=== PATIENT | female | born 1945 | race Two or more races ===

== ENCOUNTER 2025-07-08 11:41 | Inpatient (IN) | payer MEDICARE, MEDICAID ==
[~2025-07-08] VITALS: Ht 160 cm; Wt 68.5 kg
--- NOTE | 2025-07-08 12:45 | ED.PDOC ---
History of Present Illness HPI Comments Ms. Estrada is an 80 year old female with prior medical history of dementia, Parkinson's disease, hypertension, and hypothyroidism, who presented today accompanied by her son José Luis with chief complaint of generalized weakness. The patient has underlying dementia and is a poor historian, the majority of history is taken from her son José Luis who is her primary genetics teacher. He states that for the last 2 days the patient, who is ambulates with assistance and a walker, has been extremely weak, unable to stand on her own, has had decreased appetite and is sleeping more. He states she has been complaining of pain when she urinates associated with strong smelling urine in her diapers and two emetic episodes. She refers shortness of breath, but denies chest pain, fever, headache, nausea, hematuria, sore throat, and generalized body aches. Additionally refers that yesterday she fell while trying to get out of bed, he is unsure how she fell, if she hit her head, or how long she was on the floor for. Due to persistence of weakness, she is brought for evaluation in the ED. On evaluation in the ED, the patient seems well, afebrile, vitals are stable, without overt signs of distress. Home medications: Austredo 12 mg PO BID, Valsartan 80 mg PO daily, Aspiring 81 mg PO daily, Levothyroxine 75 mcg PO daily, Primidone 50 mg PO BID, Donepezil 10 mg PO daily, Trazodone 50 mg PO daily (states this was prescribed last week but he stopped it 3 days ago because it made her too lethargic) Chief Complaint: General Weakness Time Seen by MD: 12:25 Allergies: Coded Allergies: NO KNOWN ALLERGIES (Unverified , 07/08/25) Home Meds Reported Medications Primidone (Primidone) 125 Mg Tab, 100 MG PO DAILY, TAB 07/09/25 Donepezil Hydrochloride (DONEPEZIL HCL) 10 Mg Tab, 1 TAB PO DAILY, #90 TAB 1 Refill 07/09/25 Aspirin (Aspir-81) 81 Mg Tab, 1 TAB PO DAILY, #30 TAB 5 Refills 07/09/25 Levothyroxine Sodium (SYNTHROID TABLET) 100 Mcg Tb, 75 TAB PO DAILY, #90 TAB 3 Refills 07/09/25 Deutetrabenazine (Austedo) 12 Mg Tab, 12 MG PO DAILY, TAB 07/09/25 Valsartan-Hydrochlorothiazide (Diovan Hct) 80 /12.5 Tab, 1 TAB PO DAILY, #30 TAB 5 Refills 07/09/25 Information Source: Relative (Child) Mode of Arrival: Wheelchair Severity: Mild Timing: Days Past Medical History PAST MEDICAL HISTORY: Dementia, HTN, Thyroid Past Medical History (Other): Parkinsons disease Surgical History: Hernia Repair, Thyroidectomy [employer] History: Denies all [employer] Hx Family History Family History: Family hx of DM, Family hx of Cancer Social History Smoker: Non-Smoker Alcohol: Denies ETOH Use Drugs: Denies Drug Use Lives In: Home Constitutional: reports: weakness; denies: chills, diaphoresis, fatigue, fever, malaise, sweats EENTM: reports: others (Bilateral watery eye discharge); denies: blurred vision, double vision, eye pain, eye redness, nasal discharge, nose congestion, throat pain Respiratory: reports: shortness of breath; denies: cough, hemoptysis, orthopnea, SOB at rest, SOB with excertion Cardiovascular: denies: chest pain, dizzy spells, diaphoresis, Dyspnea on exertion, edema, palpitations Gastrointestinal: reports: poor appetite, vomiting; denies: abdomen distended, abdominal pain, blood streaked bowels, constipated, diarrhea, dysphagia, hematemesis, melena, nausea, poor fluid intake, rectal bleeding Genitourinary: reports: burning, dysuria; denies: flank pain, frequency, hematuria, incontinence, pain, urgency Neurological: reports: weakness; denies: dizziness, fainting, headache, numbness, paresthesia, pre-existing deficit, seizure, speech problems, tingling, tremors Musculoskeletal: denies: back pain, joint pain, joint swelling, muscle pain, muscle stiffness, neck pain Integumetry: denies: bruises, laceration, lesions, lumps, rash Physical Exam General Appearance: Normal HEENT: Normal ENT Inspection, Other (Normocephalic, atraumatic, normal reactive pupils, EOM intact, pink conjunctiva, pink moist mucous membrane) Neck: Full Range of Motion, Non-Tender, Normal Inspection Respiratory: Chest Non-Tender, Lungs Clear, No Accessory Muscle Use, No Respiratory Distress, Normal Breath Sounds Cardiovascular: No Edema, Normal Peripheral Pulses, Regular Rate/Rhythm Breast Exam: Deferred Gastrointestinal: Non Tender, Normal Bowel Sounds, Soft Genitalia: Deferred Pelvic: Deferred Rectal: Deferred Extremities: Decreased range of motion (Decreased range of motion of left shoulder secondary to a previous rotator cuff injury ), Normal capillary refill, Normal inspection, Non-tender, No pedal edema Neurologic: Motor Weakness (Strength in bilateral lower extremities 4/5 ), Normal Affect, Normal Mood, Other (AOx2, follows commands) Cerebellar Function: NOT DONE Reflexes: NOT DONE Skin: Normal Color Peripheral Pulses: 3+ dorsalis pedis (R), 3+ dorsalis pedis (L) Lymphatic: Other (No cervical adenopathy ) Was a procedure done? Was a procedure done?: No Differential Dx Considerations may include: Failure to thrive, cystitis, pyelonephritis, acute gastroenteritis, gastritis, AR, ACS X-Ray, Labs, Meds, VS Vital Signs Date Time Temp Pulse Resp B/P (MAP) Pulse Ox O2 Delivery O2 Flow Rate FiO2 07/08/25 21:16 98.3 63 14 159/57 (91) 97 98.3 07/08/25 19:30 63 14 97 Room Air* 0 21 07/08/25 18:50 70 14 165/60 (95) 97 07/08/25 16:00 62 14 149/45 (79) 98 07/08/25 15:57 57 07/08/25 15:00 85 18 95 Room Air* 0 21 07/08/25 14:14 67 13 159/45 (83) 97 07/08/25 13:00 59 14 129/48 (75) 99 07/08/25 11:45 98.3 65 12 130/55 97 98.3 Lab Test 07/08/25 16:08 07/08/25 14:10 07/08/25 14:06 07/08/25 13:12 Range/Units Troponin I High Sensitivity 72 *H 70 *H 76 *H </=34 ng/L Urine Color Yellow Yellow Urine Clarity Clear Clear Urine pH 5.0 5.0-9.0 Urine Specific [place] 1.021 1.001-1.035 Urine Protein 1+ H Negative Urine Ketones Negative Negative Urine Blood Negative Negative /uL Urine Nitrite Negative Negative Urine Bilirubin Negative Negative Urine Urobilinogen Normal Negative mg/dL Urine Leukocyte Esterase Negative Negative /uL Urine RBC 1 0 - 4 /hpf Urine Microscopic WBC < 1 0-5 /HPF Urine Squamous Epithelial Cells None seen <5 /hpf Urine Bacteria None seen None Seen /hpf Urine Glucose Normal Normal mg/dL White Blood Count 8.5 4.4-10.8 10^3/uL Red Blood Count 3.96 L 4.0-5.20 10^6/uL Hemoglobin 11.4 L 12.2-16.2 g/dL Hematocrit 34.3 L 36.0-46.0 % Mean Corpuscular Volume 86.7 80.0-100.0 fL Mean Corpuscular Hemoglobin 28.8 28.0-32.0 pg Mean Corpuscular Hemoglobin Concent 33.2 32.0-36.0 g/dL Red Cell Distribution Width 13.9 11.8-14.3 % Platelet Count 205 140-450 10^3/uL Mean Platelet Volume 9.9 6.9-10.8 fL Neutrophils (%) (Auto) 67.8 37.0-80.0 % Lymphocytes (%) (Auto) 24.3 10.0-50.0 % Monocytes (%) (Auto) 5.0 0.0-12.0 % Eosinophils (%) (Auto) 2.4 0.0-7.0 % Basophils (%) (Auto) 0.5 0.0-2.0 % Neutrophils # (Auto) 5.7 1.6-8.6 10 ^3/uL Lymphocytes # (Auto) 2.1 0.4-5.4 10 ^3/uL Monocytes # (Auto) 0.4 0-1.3 10 ^3/uL Eosinophils # (Auto) 0.2 0-0.8 10 ^3/uL Basophils # (Auto) 0 0-0.2 10 ^3/uL Nucleated Red Blood Cells 0.0 % Sodium Level 142 136-145 mmol/L Potassium Level 4.4 3.5-5.1 mmol/L Chloride Level 106 98-107 mmol/L Carbon Dioxide Level 25 20-31 mmol/L Anion Gap 11 5-15 Blood Urea Nitrogen 24 H 9-23 mg/dL Creatinine 1.09 H 0.550-1.02 mg/dL Glomerular Filtration Rate Calc 51 >90 mL/min BUN/Creatinine Ratio 22.0 H 10.0-20.0 Serum Glucose 85 74-106 mg/dL Calcium Level 8.7 8.7-10.4 mg/dL Dr. Cornelius: Patient personally seen and evaluated by myself. At this time agree finding and assessment by Dr. Pablo. Patient's assessment and plan has been created by myself along with Dr. Pablo Time of 1ST Reevaluation: 14:00 Reevaluation 1ST: Unchanged Patient Education/Counseling: Diagnosis, Treatment Family Education/Counseling: Diagnosis, Treatment Comments The patient was brought today by her son due to chief complaint of generalized weakness On initial evaluation of the patient, she seemed well, vitals are stable, without overt signs of distress. She required assistance for transfer from wheelchair to bed. Physical exam is positive mild weakness in lower extremities. CBC significant mild normocytic anemia, BMP for mildly elevated creatinine. UA without significant findings. Initial troponins: 76 -> 70 Chest xray is without significant findings CT head shows no acute intracranial abnormalities EKG shows bradycardia with occasional PCVs and trigeminy. Due to persistent weakness rendering her unable to walk, the patient will be admitted for further work up and monitoring. SEPSIS Sepsis Screen Date sepsis recognized/suspect: Jul 08, 2025 Time Sepsis recognized/suspect: 1145 Recent Procedure: No On Antibiotic Therapy: No Respiratory Rate >20: No Heart Rate >90: No Temp<36 C (96.8 F) or >38.3 C: No SBP <90 or MAP <65 mmHG: No New Acute Mental Status Change: No Is the patient on CPAP, BIPAP,: No Physician Orders Head Without Contrast (07/08/25 12:45) Chest Xray 1 View (07/08/25 12:45) Cardiac Diet-2gna,Lofat,Lochol (07/08/25 Dinner) Aspirin Tablet (07/09/25 10:00) Valsartan (Diovan) (07/09/25 10:00) Levothyroxine Tablet (Synthroid Tablet) (07/09/25 06:00) Vital Signs Date Time Temp Pulse Resp B/P (MAP) Pulse Ox O2 Delivery O2 Flow Rate FiO2 07/08/25 21:16 98.3 63 14 159/57 (91) 97 98.3 07/08/25 19:30 63 14 97 Room Air* 0 07/08/25 18:50 70 14 165/60 (95) 97 07/08/25 16:00 62 14 149/45 (79) 98 07/08/25 15:57 57 07/08/25 15:00 85 18 95 Room Air* 0 21 07/08/25 14:14 67 13 159/45 (83) 97 07/08/25 13:00 59 14 129/48 (75) 99 07/08/25 11:45 98.3 65 12 130/55 97 98.3 Laboratory Tests Test 07/08/25 13:12 White Blood Count 8.5 10^3/uL (4.4-10.8) Departure 1 Departure Time of Disposition: 16:28 Impression: Primary Impression: Generalized weakness Disposition: 30 STILL A PATIENT Condition: Stable Critical Care Note Critical Care Time?: No Stability Stability form required: NASEEM Smith RESIDENT Jul 08, 2025 12:45 ANISH CORNELIUS MD Jul 09, 2025 18:16
[2025-07-08 13:28] LABS: Hematocrit 34.3 % (36.0-46.0); Hemoglobin 11.4 g/dL (12.2-16.2); Mean Corpuscular Hemoglobin 28.8 pg (28.0-32.0); Mean Corpuscular Volume 86.7 fL (80.0-100.0); Nucleated Red Blood Cells % 0.0 %
[2025-07-08 13:35] LABS: Chloride 106 mmol/L (98-107); Potassium 4.4 mmol/L (3.5-5.1); Sodium 142 mmol/L (136-145)
[2025-07-08 13:36] LABS: Anion Gap 11 (5-15); Calcium 8.7 mg/dL (8.7-10.4); Carbon Dioxide 25 mmol/L (20-31)
[2025-07-08 13:41] LABS: BUN/Creatinine Ratio 22.0 (10.0-20.0); Glucose 85 mg/dL (74-106)
[2025-07-08 13:43] LABS: Blood Urea Nitrogen 24 mg/dL (9-23)
--- NOTE | 2025-07-08 14:10 | DVH ---
CHEST RADIOGRAPH Indication: SOB Technique: Single frontal view of the chest was obtained Comparison: None FINDINGS: Lines and Tubes: None Lungs: No focal consolidation. Pleura: No effusion. No pneumothorax. Cardiomediastinal contours: Unremarkable Bones: No acute osseous abnormality. IMPRESSION: 1. No acute cardiopulmonary disease.
--- NOTE | 2025-07-08 14:18 | DVH ---
EXAM DESCRIPTION: CT HEAD WITHOUT CONTRAST CLINICAL HISTORY: Fall COMPARISON: None TECHNIQUE: Noncontrast CT head was performed. Coronal MPR images were generated. CTDI/ DLP = 53.47 / 965.87. Dose reduction technique with one or more of the following methods was performed: Automated exposure control, adjustment of the mA and/or kV according to patient size, use of iterative reconstruction technique. FINDINGS: No evidence of acute intracranial hemorrhage. No mass effect. No extra-axial collections of fluid or blood. The brain is normal in attenuation. The ventricles and sulci are normal in size for age. Clear basal cisterns. The calvarium is intact. The soft tissues are unremarkable. The paranasal sinuses and mastoid air cells are clear. IMPRESSION: 1. No acute intracranial findings.
[2025-07-08 15:00] VITALS: PULSE 85; RESP 18; O2SAT 95
[2025-07-08 15:20] LABS: Urine Protein, UAD 1+ (Negative)
--- NOTE | 2025-07-08 19:15 | ECG ---
[facility] Test Date: 2025-07-08 Test Time: 15:57:43 Pat Name: ZULEYMA RODRÍGUEZ Department: [facility] ED Patient ID: [facility]-[id number] Room: 0231T Gender: F Configuration Engineer: MENDY : 1945 Requested By: NASEEM MARTIN Order Number: [id number] Reading MD: Pineda Boothe Measurements Intervals [place] Rate: 57 P: -20 AL: 241 QRS: -36 QRSD: 124 T: 68 QT: 484 QTc: 472 Interpretive Statements Sinus rhythm Ventricular trigeminy Prolonged AL interval Nonspecific IVCD with LAD Left ventricular hypertrophy Nonspecific T abnormalities, lateral leads Anterior ST elevation, probably due to LVH Electronically Signed On 07-11-2025 10:56:20 PST by Pineda Boothe Please click the below link to view image of tracing.
[2025-07-08 19:30] VITALS: PULSE 63; RESP 14; O2SAT 97
[2025-07-08 21:00] VITALS: BP 170/93; PULSE 75; RESP 17; TEMP 97.5; O2SAT 97
[2025-07-08] MEDS ORDERED: ACETAMINOPHEN 325 MG TAB PO PRN (21:30)
[2025-07-08] MEDS ORDERED: ONDANSETRON HCL 4 MG/2 ML VIAL IV PRN (21:30)
[2025-07-08] MEDS: DONEPEZIL HYDROCHLORIDE 5 MG TAB PO SCH (21:37)
[2025-07-08] MEDS: AUSTEDO 12 MG PO SCH (21:37)
[2025-07-08] MEDS: PRIMIDONE 50 MG TAB PO SCH (21:37)
--- NOTE | 2025-07-08 22:44 | DVH ---
Exam: CT CT AB PEL WO CON-NO ORAL OR IV History: abdominal pain Comparison Study: None Technique: Multidetector spiral CT of the abdomen was performed from lung bases to pubic symphysis. Imaging was performed without IV contrast. Axial, coronal and sagittal multiplanar reformats were obtained from the axial data set by the technologist. Radiation Dose : 1. Abdomen/Pelvis: CTDIvol 14.13 mGy, DLP 711.88 mGy*cm. Findings: Evaluation of solid organs is limited due to lack of intravenous contrast use. Lung Bases: No acute or significant lung base finding. Normal heart size. No pleural or pericardial effusion. Liver: The liver is normal in size. No focal lesions. Gallbladder and Biliary Tree: Unremarkable Spleen: Unremarkable Pancreas: The pancreas is grossly normal in appearance. Adrenal Glands: Unremarkable Kidneys: Pelvic left kidney. No hydronephrosis. Bladder: Grossly unremarkable for degree of distention. Bowel: The stomach is grossly normal in appearance. Small bowel and colon are normal in caliber and distribution. The appendix is not visualized; however, no secondary findings of acute appendicitis identified. Ascites: Absent Lymphadenopathy: No mesenteric, retroperitoneal or periportal lymphadenopathy. Abdominal Wall and Mesentery: Repair of a ventral hernia.. Vasculature: The visualized abdominal aorta is normal in size and caliber. Evaluation of abdominal and pelvic vessels is limited due to lack of intravenous contrast. Pelvic Organs: Unremarkable Musculoskeletal: No aggressive focal bony lesions, acute fractures or dislocation. IMPRESSION: No acute abdominal or pelvic findings. Radiation optimization: All CT scans at this facility use at least one of these dose optimization techniques: automated exposure control mA and/or kV adjustment per patient size (includes targeted exams where dose is matched to clinical indication) or iterative reconstruction.
[2025-07-08] MEDS: ENOXAPARIN SOD 40 MG/0.4 ML SYRINGE SC SCH (22:50)
[2025-07-08] MEDS: SODIUM CHLORIDE 0.9% 500 ML IV ONE (22:50)
[2025-07-08 23:15] LABS: Albumin 3.9 g/dL (3.2-4.8); Alkaline Phosphatase 97 U/L (46-116); Magnesium 1.7 mg/dL (1.6-2.6); Total Protein 6.5 g/dL (5.7-8.2)
[2025-07-08 23:24] LABS: Alanine Aminotransferase 64 U/L (7-40); Bilirubin, Direct < 0.1 mg/dL (<0.3); Bilirubin, Total 0.2 mg/dL (0.2-1.0)
--- NOTE | 2025-07-08 23:46 | DVHHPRES ---
History of Present Illness Resident Creating Document: KELSEY CHRISTIAN RESIDENT History of Present Illness 80-year-old female with a past medical history of Dementia, Parkinson's disease, hypertension, hypothyroidism has been brought by her son, with chief complaints of patient being increasingly hypersomnolent and generalized weakness. Patient has dementia, unable to recall much, so history was taken from son. According to the son, patient began a new medication for tardive dyskinesia (Austredo) 1 month ago which caused her to have insomnia and since last patient was prescribed trazodone 50 mg for sleep. Since then, she she has been increasingly somnolent so her son decrease the dose to half but patient has been more confused than her baseline and weak. Son reports that the patient used a walker to ambulate in the past, but in the last 2 days she has stopped walking at all and does not get out of bed. He states that he found her on the floor 2 days ago, reporting she might have fallen out of the bed, but does not know if she sustained head injury. Vitals on admission were stable HR 70, RR 14, BP 165/60 mmHg, SpO2 97% in room air. We are admitting the patient for further workup and management. PMH: As stated above PSH: abdominal hernia surgery, thyroidectomy, hysterectomy, right knee replacement, surgery for right femur fracture Family history: Reviewed, noncontributory to the management of this case Social history: Patient denies smoking, drinking alcohol or any other illicit drug abuse Allergies: None PCP: Dr. Gonzalez Neurologist: Dr White Code status: DNR/DNI Review of Systems Constitutional: Yes: Weakness, Other (Hypersomnolent); No: Fever, Chills, Sweats, Malaise Eyes: No: Pain, Vision change, Conjunctivae inflammation, Eyelid inflammation, Other, Redness ENT: No: Ear pain, Ear discharge, Nose pain, Nose discharge, Nose congestion, Mouth pain, Mouth swelling, Throat pain, Throat swelling, Other Respiratory: No: Cough, Dry, Shortness of breath, SOB with excertion, Wheezing, Hemoptysis, Pleuritic Pain, Sputum, Wheezing, Other Cardiovascular: No: Chest Pain, Palpitations, Orthopnea, Paroxysmal Noc. Dyspnea, Edema, Lt Headedness, Other Gastrointestinal: No: Nausea, Vomiting, Abdominal Pain, Diarrhea, Constipation, Melena, Hematochezia, Other Genitourinary: No Dysuria, No Frequency, No Incontinence, No Hematuria, No Retention, No Other Musculoskeletal: No: other, neck pain, shoulder pain, arm pain, back pain, hand pain, leg pain, foot pain Skin: No: Rash, Lesions, Jaundice, Bruising, Other Neurological: No: Weakness, Numbness, Incoordination, Change in speech, Confusion, Seizures, Other Allergies: Coded Allergies: NO KNOWN ALLERGIES (Unverified , 07/08/25) Medications Current Medications Medications Dose Ordered Sig/Kelsi Route Start Time Stop Time Status Last Admin Dose Admin Patient Own Medication 12 BID PO 07/08/25 22:00 07/08/25 21:37 12 Donepezil HCl 10 mg HS PO 07/08/25 22:00 07/08/25 21:37 10 MG Primidone 100 mg HS PO 07/08/25 22:00 07/08/25 21:37 100 MG Aspirin 81 mg DAILY PO 07/09/25 10:00 Valsartan 80 mg DAILY PO 07/09/25 10:00 Levothyroxine Sodium 75 mcg QAM@0600 PO 07/09/25 06:00 Ondansetron HCl 4 mg Q4HP PRN IV 07/08/25 21:30 Acetaminophen 650 mg Q6HP PRN PO 07/08/25 21:30 Enoxaparin Sodium 40 mg DAILY SC 07/08/25 21:30 07/08/25 22:50 40 MG Exam Vital Signs Vital Signs Date Time Temp Pulse Resp B/P (MAP) Pulse Ox O2 Delivery O2 Flow Rate FiO2 07/08/25 21:16 98.3 63 14 159/57 (91) 97 98.3 07/08/25 19:30 Room Air* 0 21 Exam Pt is lying on bed General Appearance: Alert, Oriented X3, Cooperative, Not in acute distress HEENT: Atraumatic, Mucous membranes moist/pink Respiratory: Clear to auscultation, Normal air movement, No added sounds Cardiovascular: Regular rate, Normal S1, Normal S2, No murmurs Abdominal: Active bowel sounds, Soft, no distention, no tenderness Extremities: No edema, Normal pulses, No tenderness/swelling, strength 2/5 on right lower leg, 5/5 in all other extremities Skin: No Significant rash, except past surgical scars Neuro: Normal speech, sensorimotor deficits none Psych/Mental Status: Mental status NL, Mood NL Nurse was there as collision repairer during examination Labs/Xrays Labs Test 07/08/25 22:35 07/08/25 16:08 07/08/25 14:10 07/08/25 13:12 Range/Units Lactic Acid Level 0.7 0.4-2.0 mmol/L Magnesium Level 1.7 1.6-2.6 mg/dL Total Bilirubin 0.2 0.2-1.0 mg/dL Direct Bilirubin < 0.1 <0.3 mg/dL Aspartate Amino Transferase (AST) 182 H 13-40 U/L Alanine Aminotransferase (ALT) 64 H 7-40 U/L Alkaline Phosphatase 97 46-116 U/L Ammonia < 10 L 11-32 umol/L Total Protein 6.5 5.7-8.2 g/dL Albumin 3.9 3.2-4.8 g/dL Thyroid Stimulating Hormone (TSH) 2.30 0.55-4.78 uIU/mL Troponin I High Sensitivity 72 *H </=34 ng/L Urine Color Yellow Yellow Urine Clarity Clear Clear Urine pH 5.0 5.0-9.0 Urine Specific [place] 1.021 1.001-1.035 Urine Protein 1+ H Negative Urine Ketones Negative Negative Urine Blood Negative Negative /uL Urine Nitrite Negative Negative Urine Bilirubin Negative Negative Urine Urobilinogen Normal Negative mg/dL Urine Leukocyte Esterase Negative Negative /uL Urine RBC 1 0 - 4 /hpf Urine Microscopic WBC < 1 0-5 /HPF Urine Squamous Epithelial Cells None seen <5 /hpf Urine Bacteria None seen None Seen /hpf Urine Glucose Normal Normal mg/dL White Blood Count 8.5 4.4-10.8 10^3/uL Red Blood Count 3.96 L 4.0-5.20 10^6/uL Hemoglobin 11.4 L 12.2-16.2 g/dL Hematocrit 34.3 L 36.0-46.0 % Mean Corpuscular Volume 86.7 80.0-100.0 fL Mean Corpuscular Hemoglobin 28.8 28.0-32.0 pg Mean Corpuscular Hemoglobin Concent 33.2 32.0-36.0 g/dL Red Cell Distribution Width 13.9 11.8-14.3 % Platelet Count 205 140-450 10^3/uL Mean Platelet Volume 9.9 6.9-10.8 fL Neutrophils (%) (Auto) 67.8 37.0-80.0 % Lymphocytes (%) (Auto) 24.3 10.0-50.0 % Monocytes (%) (Auto) 5.0 0.0-12.0 % Eosinophils (%) (Auto) 2.4 0.0-7.0 % Basophils (%) (Auto) 0.5 0.0-2.0 % Neutrophils # (Auto) 5.7 1.6-8.6 10 ^3/uL Lymphocytes # (Auto) 2.1 0.4-5.4 10 ^3/uL Monocytes # (Auto) 0.4 0-1.3 10 ^3/uL Eosinophils # (Auto) 0.2 0-0.8 10 ^3/uL Basophils # (Auto) 0 0-0.2 10 ^3/uL Nucleated Red Blood Cells 0.0 % Sodium Level 142 136-145 mmol/L Potassium Level 4.4 3.5-5.1 mmol/L Chloride Level 106 98-107 mmol/L Carbon Dioxide Level 25 20-31 mmol/L Anion Gap 11 5-15 Blood Urea Nitrogen 24 H 9-23 mg/dL Creatinine 1.09 H 0.550-1.02 mg/dL Glomerular Filtration Rate Calc 51 >90 mL/min BUN/Creatinine Ratio 22.0 H 10.0-20.0 Serum Glucose 85 74-106 mg/dL Calcium Level 8.7 8.7-10.4 mg/dL SEPSIS Sepsis Screen Date sepsis recognized/suspect: Jul 08, 2025 Time Sepsis recognized/suspect: 1144 Recent Procedure: No On Antibiotic Therapy: No Respiratory Rate >20: No Heart Rate >90: No Temp<36 C (96.8 F) or >38.3 C: No SBP <90 or MAP <65 mmHG: No New Acute Mental Status Change: No Is the patient on CPAP, BIPAP,: No Physician Orders Patients Own Medication (07/08/25 22:00) Donepezil Tablet (Aricept Tablet) (07/08/25 22:00) Primidone Tablet (Mysoline Tablet) (07/08/25 22:00) Aspirin Tablet (07/09/25 10:00) Valsartan (Diovan) (07/09/25 10:00) Levothyroxine Tablet (Synthroid Tablet) (07/09/25 06:00) Admit (07/08/25 21:28) Code Status (07/08/25 21:28) Ondansetron Hcl (Zofran) (07/08/25 21:30) Complete Blood Count (07/09/25 04:00) Comprehensive Metabolic Panel (07/09/25 04:00) Condition: Unstable (07/08/25 21:28) Acetaminophen Tablet (Tylenol Tablet) (07/08/25 21:30) Enoxaparin Sodium (Lovenox) (07/08/25 21:30) Blood Culture (07/08/25:) Ct Ab Pel Wo Con-No Oral Or Iv (07/08/25 21:) Vital Signs Date Time Temp Pulse Resp B/P (MAP) Pulse Ox O2 Delivery O2 Flow Rate FiO2 07/08/25 21:16 98.3 63 14 159/57 (91) 97 98.3 07/08/25 19:30 63 14 97 Room Air* 0 21 07/08/25 18:50 70 14 165/60 (95) 97 07/08/25 16:00 62 14 149/45 (79) 98 07/08/25 15:57 57 Laboratory Tests Test 07/08/25 13:12 07/08/25 22:35 White Blood Count 8.5 10^3/uL (4.4-10.8) Lactic Acid Level 0.7 mmol/L (0.4-2.0) Medications Medications Dose Ordered Sig/Eklsi Route Start Time Stop Time Status Last Admin Dose Admin Donepezil HCl 10 mg HS PO 07/08/25 22:00 07/08/25 21:37 10 MG Enoxaparin Sodium 40 mg DAILY SC 07/08/25 21:30 07/08/25 22:50 40 MG Patient Own Medication 12 BID PO 07/08/25 22:00 07/08/25 21:37 12 Primidone 100 mg HS PO 07/08/25 22:00 07/08/25 21:37 100 MG Sodium Chloride 500 ml @ 500 mls/hr Q1H ONCE IV 07/08/25 21:30 07/08/25 22:29 DC 07/08/25 22:50 500 MLS/HR Assessment/Plan Assessment/Plan #Metabolic encephalopathy, rule out bacteremia #Cognitive dysfunction possibly medicine induced #Polypharmacy use #Bradycardia likely due to Donepezil - EKG - blood culture - lactic acid 0.7 - magnesium 1.7 - TSH 2.30 - ammonia <10 - chest x-ray shows no acute cardiopulmonary disease - Head CT shows no acute intracranial findings - CT abdomen and pelvis shows no acute abdominal or pelvic findings - Zofran 4 mg IV q.4 PRN - Hold Donepezil # BAKARI due to VMN - IV fluid NS 0.9% # NSTEMI type 2 # Hypertension - EKG - troponin: 76> 70> 72 - telemonitor - continue home medication valsartan 80 mg p.o. daily - continue aspirin 81 mg p.o. daily #Transaminitis -AST 182, ALT 64 -Liver ultrasound #Parkinson's disease - hold primidone for now as it can make patient more hyper somnolent - hold Austredo #History of dementia - monitor for any changes from baseline than usual - Aricept 10 mg on hold as patient is bradycardic #Hypothyroidism - levothyroxine 75 mcg per orally daily DVT prophylaxis: Lovenox 40 mg subcutaneously daily Diet: cardiac diet Goals of care discussed with the patient for more than 27 minutes: DNR/DNI sta tus Case discussed with Dr. Duran, patient Plan discussed with: Patient My Orders Orders - KELSEY CHRISTIAN Procedure Category Date Status Time Admit ADMIT 07/08/25 Transmitted 21:28 Code Status CODE 07/08/25 Transmitted 21:28 Ondansetron Hcl PHA 07/08/25 In Process (Zofran) 21:30 Complete Blood Count LAB 07/09/25 Verified 04:00 Comprehensive LAB 07/09/25 Verified Metabolic Panel 04:00 Condition: Unstable NELSON 07/08/25 In Process 21:28 Acetaminophen Tablet PHA 07/08/25 In Process (Tylenol Tablet) 21:30 Enoxaparin Sodium PHA 07/08/25 In Process (Lovenox) 21:30 Blood Culture MARIAH 07/08/25 In Process 21:28 Ct Ab Pel Wo Con-No CT 07/08/25 Resulted Oral Or Iv 21:28 Date of Service: Jul 09, 2025 Billing Provider: DARREN DURAN MD, SREYA RESIDENT Jul 08, 2025 23:46
[2025-07-09] VITALS (9 sets, daily range): BP systolic 151–185; BP diastolic 50–93; PULSE 49–75; RESP 12–18; TEMP 97.3–97.8; O2SAT 97–99
[2025-07-09] MEDS: hydrALAZINE HCL 20 MG/ML VL IV ONE (01:56)
[2025-07-09] MEDS ORDERED: DONE1TAB88 PO (03:19)
[2025-07-09] MEDS ORDERED: LEVO-849 PO (03:19)
[2025-07-09] MEDS ORDERED: ASPI1TAB20 PO (03:19)
[2025-07-09] MEDS ORDERED: DEUT12TA PO (03:19)
[2025-07-09] MEDS ORDERED: PRIM125T PO (03:19)
[2025-07-09] MEDS ORDERED: VALS80TA44 PO (03:19)
[2025-07-09 06:27] LABS: Hematocrit 32.3 % (36.0-46.0); Hemoglobin 11.0 g/dL (12.2-16.2); Mean Corpuscular Hemoglobin 29.6 pg (28.0-32.0); Mean Corpuscular Volume 86.6 fL (80.0-100.0); Nucleated Red Blood Cells % 0.1 %
[2025-07-09 06:39] LABS: Albumin 3.7 g/dL (3.2-4.8); Alkaline Phosphatase 78 U/L (46-116); Anion Gap 11 (5-15); BUN/Creatinine Ratio 20.8 (10.0-20.0); Blood Urea Nitrogen 22 mg/dL (9-23); Carbon Dioxide 24 mmol/L (20-31); Glucose 90 mg/dL (74-106); Potassium 4.0 mmol/L (3.5-5.1); Sodium 143 mmol/L (136-145); Total Protein 6.3 g/dL (5.7-8.2)
[2025-07-09 06:40] LABS: Bilirubin, Total 0.3 mg/dL (0.2-1.0)
[2025-07-09 06:41] LABS: Alanine Aminotransferase 55 U/L (7-40); Calcium 8.7 mg/dL (8.7-10.4); Chloride 108 mmol/L (98-107)
[2025-07-09] MEDS: LEVOTHYROXINE SODIUM 25 MCG TAB PO SCH (06:45)
[2025-07-09] MEDS: VALSARTAN 80 MG TAB PO SCH (06:45)
[2025-07-09] MEDS: hydroCHLOROthiazide 25 MG TAB PO SCH (09:47)
--- NOTE | 2025-07-09 10:52 | DVH ---
EXAM DESCRIPTION: US LIVER CLINICAL HISTORY: transaminitis COMPARISON: None TECHNIQUE: Using real-time ultrasonography multiple images of the abdomen were obtained. FINDINGS: The liver measures 13.9 cm. No focal liver masses. The liver demonstrates heterogeneous echogenicity. The partially imaged pancreas is unremarkable. No gallstones in the gallbladder. No gallbladder wall thickening. No pericholecystic fluid. Negative sonographic Delaney sign. The common bile duct measures 3.7 mm in diameter. There is no free intraperitoneal fluid. The right kidney measures 8.6 cm. No right renal calculi or hydronephrosis. IMPRESSION: 1. Heterogeneous liver, suggesting chronic liver disease.
[2025-07-09 11:35] LABS: COVID19 ANTIGEN SOFIA FIA NEGATIVE (NEGATIVE)
--- NOTE | 2025-07-09 12:35 | DVHPN2 ---
Reviewed: Care Plan, H&P, Labs, Medications, Previous Orders, Radiology Changes from previous H/P or p: No Changes Eyes: No Pain, No Vision change, No Conjunctivae inflammation, No Eyelid inflammation, No Other, No Redness ENT: No Ear pain, No Ear discharge, No Nose pain, No Nose discharge, No Nose congestion, No Mouth pain, No Mouth swelling, No Throat pain, No Throat swelling, No Other Cardiovascular: No Chest Pain, No Palpitations, No Orthopnea, No Paroxysmal Noc. Dyspnea, No Edema, No Lt Headedness, No Other Respiratory: No Cough, No Dry, No Shortness of breath, No SOB with excertion, No Wheezing, No Hemoptysis, No Pleuritic Pain, No Sputum, No Other Gastrointestinal: No Nausea, No Vomiting, No Abdominal Pain, No Diarrhea, No Constipation, No Melena, No Hematochezia, No Other Genitourinary: No Dysuria, No Frequency, No Incontinence, No Hematuria, No Retention, No Other Musculoskeletal: No other, No neck pain, No shoulder pain, No arm pain, No back pain, No hand pain, No leg pain, No foot pain Skin: No Rash, No Lesions, No Jaundice, No Bruising, No Other Objective Vitals Vital Signs Date Time Temp Pulse Resp B/P (MAP) Pulse Ox O2 Delivery O2 Flow Rate FiO2 07/09/25 09:47 162/53 07/09/25 08:44 97.6 63 12 99 97.6 07/09/25 08:00 Room Air* 0 21 Intake/Output Intake and Output 07/09/25 07:00 Intake Total 0 ml Balance 0 ml Intake Oral 0 ml # Voids 1 Medications Current Medications Medications Dose Ordered Sig/Kelsi Route Start Time Stop Time Status Last Admin Dose Admin Aspirin 81 mg DAILY PO 07/09/25 10:00 07/09/25 09:46 81 MG Valsartan 80 mg DAILY PO 07/09/25 10:00 07/09/25 06:45 80 MG Levothyroxine Sodium 75 mcg QAM@0600 PO 07/09/25 06:00 07/09/25 06:45 75 MCG Ondansetron HCl 4 mg Q4HP PRN IV 07/08/25 21:30 Acetaminophen 650 mg Q6HP PRN PO 07/08/25 21:30 Enoxaparin Sodium 40 mg DAILY SC 07/08/25 21:30 07/09/25 09:46 40 MG Hydrochlorothiazide 12.5 mg DAILY PO 07/09/25 10:00 07/09/25 09:47 12.5 MG Laboratory Results Laboratory Tests 07/09/25 05:14 Chemistry Test 07/08/25 13:12 07/08/25 22:35 07/09/25 05:14 Calcium Level 8.7 mg/dL (8.7-10.4) 8.7 mg/dL (8.7-10.4) Albumin 3.9 g/dL (3.2-4.8) 3.7 g/dL (3.2-4.8) Magnesium Level 1.7 mg/dL (1.6-2.6) Total Protein 6.5 g/dL (5.7-8.2) 6.3 g/dL (5.7-8.2) LFT Test 07/08/25 22:35 07/09/25 05:14 Alanine Aminotransferase (ALT) 64 U/L (7-40) H 55 U/L (7-40) H Alkaline Phosphatase 97 U/L (46-116) 78 U/L (46-116) Aspartate Amino Transferase (AST) 182 U/L (13-40) H 151 U/L (13-40) H Direct Bilirubin < 0.1 mg/dL (<0.3) Total Bilirubin 0.2 mg/dL (0.2-1.0) 0.3 mg/dL (0.2-1.0) HgA1c, TSH Test 07/08/25 22:35 Thyroid Stimulating Hormone (TSH) 2.30 uIU/mL (0.55-4.78) Urinalysis Test 07/08/25 14:10 Urine Color Yellow (Yellow) Urine Clarity Clear (Clear) Urine pH 5.0 (5.0-9.0) Urine Specific [place] 1.021 (1.001-1.035) Urine Protein 1+ (Negative) H Urine Ketones Negative (Negative) Urine Blood Negative /uL (Negative) Urine Nitrite Negative (Negative) Urine Bilirubin Negative (Negative) Urine Urobilinogen Normal mg/dL (Negative) Urine Leukocyte Esterase Negative /uL (Negative) Urine RBC 1 /hpf (0 - 4) Urine Microscopic WBC < 1 /HPF (0-5) Urine Squamous Epithelial Cells None seen /hpf (<5) Urine Bacteria None seen /hpf (None Seen) Urine Glucose Normal mg/dL (Normal) Labs and/or images reviewed: Labs reviewed by me, Image(s) reviewed by me Assessment/Plan Assessment/Plan Acute metabolic encephalopathy rule out sepsis Cognitive dysfunction possibly medication induced [facility] use Bradycardia likely due to Aricept BAKARI versus VMN Non STEMI type 2 Hypertension Parkinson's disease on primidone, A[place]ED[place] 12 mg p.o. b.i.d. Dementia Hypothyroidism: Continue Synthroid 75 mcg a day Hypertension continue valsartan 80 mg p.o. daily Patient was on trazodone for depression recently discontinued Patient is DNR per patient's son José Luis who is at the bedside General Condition stable Rosa test negative Rapid flu test negative Time taken 70 minutes Advanced care planning time 20 minutes Plan discussed with: Patient Date of Service: Jul 09, 2025 Billing Provider: AMITA HARMON MD Common Visit Codes: [id number] CARE 30-74 MIN AMITA HARMON MD Jul 09, 2025 12:35
[2025-07-09] MEDS: hydrALAZINE HCL 20 MG/ML VL IV PRN (21:01)
[2025-07-10] VITALS (8 sets, daily range): BP systolic 95–166; BP diastolic 51–79; PULSE 67–81; RESP 15–18; TEMP 97.7–98.6; O2SAT 96–100
--- NOTE | 2025-07-10 09:41 | DVHPN2 ---
Reviewed: Care Plan, H&P, Labs, Medications, Previous Orders, Radiology Changes from previous H/P or p: No Changes Eyes: No Pain, No Vision change, No Conjunctivae inflammation, No Eyelid inflammation, No Other, No Redness ENT: No Ear pain, No Ear discharge, No Nose pain, No Nose discharge, No Nose congestion, No Mouth pain, No Mouth swelling, No Throat pain, No Throat swelling, No Other Cardiovascular: No Chest Pain, No Palpitations, No Orthopnea, No Paroxysmal Noc. Dyspnea, No Edema, No Lt Headedness, No Other Respiratory: No Cough, No Dry, No Shortness of breath, No SOB with excertion, No Wheezing, No Hemoptysis, No Pleuritic Pain, No Sputum, No Other Gastrointestinal: No Nausea, No Vomiting, No Abdominal Pain, No Diarrhea, No Constipation, No Melena, No Hematochezia, No Other Genitourinary: No Dysuria, No Frequency, No Incontinence, No Hematuria, No Retention, No Other Musculoskeletal: No other, No neck pain, No shoulder pain, No arm pain, No back pain, No hand pain, No leg pain, No foot pain Skin: No Rash, No Lesions, No Jaundice, No Bruising, No Other Objective Vitals Vital Signs Date Time Temp Pulse Resp B/P (MAP) Pulse Ox O2 Delivery O2 Flow Rate FiO2 07/10/25 08:46 97.9 78 18 144/65 (91) 98 97.9 07/10/25 08:00 Room Air* 0 21 Intake/Output Intake and Output 07/10/25 07:00 Intake Total 600 ml Balance 600 ml Intake Oral 600 ml # Voids 4 Medications Current Medications Medications Dose Ordered Sig/Kelsi Route Start Time Stop Time Status Last Admin Dose Admin Aspirin 81 mg DAILY PO 07/09/25 10:00 07/09/25 09:46 81 MG Valsartan 80 mg DAILY PO 07/09/25 10:00 07/09/25 06:45 80 MG Levothyroxine Sodium 75 mcg QAM@0600 PO 07/09/25 06:00 07/10/25 06:27 75 MCG Ondansetron HCl 4 mg Q4HP PRN IV 07/08/25 21:30 Acetaminophen 650 mg Q6HP PRN PO 07/08/25 21:30 Enoxaparin Sodium 40 mg DAILY SC 07/08/25 21:30 11/8/25 09:46 40 MG Hydralazine HCl 10 mg Q6HP PRN IV 07/09/25 18:00 07/10/25 06:27 10 MG Hydrochlorothiazide 25 mg DAILY PO 07/10/25 09:45 UNV Laboratory Results Laboratory Tests 07/09/25 05:14 Urinalysis Test 07/08/25 14:10 Urine Color Yellow (Yellow) Urine Clarity Clear (Clear) Urine pH 5.0 (5.0-9.0) Urine Specific [place] 1.021 (1.001-1.035) Urine Protein 1+ (Negative) H Urine Ketones Negative (Negative) Urine Blood Negative /uL (Negative) Urine Nitrite Negative (Negative) Urine Bilirubin Negative (Negative) Urine Urobilinogen Normal mg/dL (Negative) Urine Leukocyte Esterase Negative /uL (Negative) Urine RBC 1 /hpf (0 - 4) Urine Microscopic WBC < 1 /HPF (0-5) Urine Squamous Epithelial Cells None seen /hpf (<5) Urine Bacteria None seen /hpf (None Seen) Urine Glucose Normal mg/dL (Normal) Microbiology Microbiology Date/Time Source Procedure Growth Status 07/08/25 22:45 Blood Blood Culture - Preliminary NO GROWTH AFTER 24 HOURS OF INCUBATION. Resulted Labs and/or images reviewed: Labs reviewed by me, Image(s) reviewed by me Assessment/Plan Assessment/Plan Acute metabolic encephalopathy rule out sepsis Cognitive dysfunction possibly medication induced [facility] use Bradycardia likely due to Aricept BAKARI versus VMN Elevated troponin 72, Non STEMI type 2 , consult for Cardiology Dr. Peters Hypertension Parkinson's disease on primidone, [place] 12 mg p.o. b.i.d. primidone 100 mg p.o. daily consult for Neurology Dementia Hypothyroidism: Continue Synthroid 75 mcg a day Hypertension continue valsartan 80 mg p.o. daily Patient was on trazodone for depression recently discontinued Patient is DNR per patient's son José Luis who is at the bedside General Condition stable Rosa test negative Rapid flu test negative Blood cultures neg Physical Therapy ordered Time taken 60 minutes Advanced care planning time 20 minutes Plan discussed with: Patient My Orders Orders - AMITA HARMON MD Procedure Category Date Status Time Communication Order ORDERS 07/10/25 Transmitted 09:30 May Take Own Meds ORDERS 07/10/25 Transmitted 09:32 Pt Request For Service PT 07/10/25 Logged 09:32 * Cardiology Consult CONS 07/10/25 Transmitted 09:32 * Neurology Consult CONS 07/10/25 Transmitted 09:32 Hydrochlorothiazide PHA 07/10/25 Transmitted Tablet (Hydrochlorot 09:45 Date of Service: Jul 10, 2025 Billing Provider: AMITA HARMON MD Common Visit Codes: [id number] CARE 30-74 MIN AMITA HARMON MD Jul 10, 2025 09:41
--- NOTE | 2025-07-10 11:00 | DVHCONRES ---
Date Seen: Jul 10, 2025 Resident Creating Document: VESNA,ABIGAILMayurPABLO RESIDENT Referring Physician Dr [place] Dumont MD Reason for Consultation Elevated troponins History of Present Illness Ángela is a female patient with a history of dementia, Parkinson's disease, hypertension, and kidney disease presenting with cardiovascular concerns including fluctuating blood pressure and bradycardia. The cardiology team has identified central pulmonary findings with measurements ranging from 70-76 that are concerning, and her heart rate has been noted to drop into the 30s, initially thought to be in the 40s on Friday night. At home, she was taking a lot of deep breaths, and when walking she breathes hard, though no clear shortness of breath is observed. She had surgery at [facility] on June 01, 2023. Starting in September-October, she began showing memory loss, and an MRI in January revealed some sort of memory loss. After that, she started developing tremors and was referred to a neurologist. Her medication regimen has included primadonna, astudio, and most recently trazodone for PMG, which she took for the first time last . Following the trazodone, she slept for two days, and from Friday onwards, she has not had strength to walk or get up from bed to go to the bathroom. Her troponins was found to have 76 > 70 > 72. Medical History - Dementia diagnosed by December 2023 - Parkinson's disease with worsening progression over the last couple years since December 2023 - Hypertension with historical fluctuations between high and low blood pressure - Kidney disease (Single kidney) - Femur fracture in May 2022 Surgical History - Knee replacement in October 2 years ago - Femur fracture repair surgery following a fall in May - Surgery at [facility] on June 01, 2023 Medications and Supplements Dueterotetrabenazine, levothyroxine, aspirin, donepezil 10 mg, primidone 125 mg, valsartan/hydrochlorothiazide 80/12.5 mg Family History - Father: History of heart conditions Social History - Living Situation: Lives with family members who provide care and support - Social Support: Has family members who recognize her and provide assistance with daily activities - Functional Status: Requires assistance getting up from bed, otherwise maintains good strength and functionality per physical therapy assessment Review of Systems Cardiovascular: Negative for leg swelling. Respiratory: Negative for shortness of breath. Patient seen and examined at the bedside. Despite her functional decline, she continues to recognize family members, knows where she is, and speaks Samoan. She reports feeling much better and denies leg swelling. The physical therapist was pleased with her strength and functionality, noting she just needs assistance getting up from bed. Allergies: Coded Allergies: NO KNOWN ALLERGIES (Unverified , 07/08/25) Home Meds Reported Medications Primidone (Primidone) 125 Mg Tab, 100 MG PO DAILY, TAB 07/09/25 Donepezil Hydrochloride (DONEPEZIL HCL) 10 Mg Tab, 1 TAB PO DAILY, #90 TAB 1 Refill 07/09/25 Aspirin (Aspir-81) 81 Mg Tab, 1 TAB PO DAILY, #30 TAB 5 Refills 07/09/25 Levothyroxine Sodium (SYNTHROID TABLET) 100 Mcg Tb, 75 TAB PO DAILY, #90 TAB 3 Refills 07/09/25 Deutetrabenazine (Austedo) 12 Mg Tab, 12 MG PO DAILY, TAB 07/09/25 Valsartan-Hydrochlorothiazide (Diovan Hct) 80 /12.5 Tab, 1 TAB PO DAILY, #30 TAB 5 Refills 07/09/25 Current Medications Current Medications Medications (Trade) Dose Ordered Sig/Kelsi Route PRN Reason Start Time Stop Time Status Last Admin Hydralazine HCl (Apresoline Injection) 10 mg Q6HP PRN IV SBP>150 07/09/25 18:00 07/10/25 06:27 Hydrochlorothiazide (hydroCHLOROthiazide TABLET) 25 mg DAILY PO 07/10/25 09:45 Vital Signs Vital Signs Date Time Temp Pulse Resp B/P (MAP) Pulse Ox O2 Delivery O2 Flow Rate FiO2 07/10/25 08:46 97.9 78 18 144/65 (91) 98 97.9 07/10/25 08:00 Room Air* 0 21 Physical Exam Pt is lying on bed General Appearance: Alert, Oriented X2, Cooperative, Not in acute distress HEENT: Atraumatic, Mucous membranes moist/pink Respiratory: Clear to auscultation, Normal air movement, No added sounds Cardiovascular: Regular rate, Normal S1, Normal S2, No murmurs Abdominal: Active bowel sounds, Soft, no distention, no tenderness Extremities: No edema, Normal pulses, No tenderness/swelling Skin: No Significant rash, except past surgical scars Neuro: Normal speech, resting tremors Nurse was there as epic manager during examination Labs/Diagnostic Data Labs Test 07/09/25 09:15 07/09/25 05:14 07/08/25 22:35 07/08/25 16:08 Range/Units Influenza Type A Antigen Negative Negative Influenza Type B Antigen Negative Negative SARS-CoV-2 Antigen (Rapid) Negative NEGATIVE White Blood Count 6.1 # 4.4-10.8 10^3/uL Red Blood Count 3.73 L 4.0-5.20 10^6/uL Hemoglobin 11.0 L 12.2-16.2 g/dL Hematocrit 32.3 L 36.0-46.0 % Mean Corpuscular Volume 86.6 80.0-100.0 fL Mean Corpuscular Hemoglobin 29.6 28.0-32.0 pg Mean Corpuscular Hemoglobin Concent 34.2 32.0-36.0 g/dL Red Cell Distribution Width 13.6 11.8-14.3 % Platelet Count 174 140-450 10^3/uL Mean Platelet Volume 10.2 6.9-10.8 fL Neutrophils (%) (Auto) 56.7 37.0-80.0 % Lymphocytes (%) (Auto) 33.4 10.0-50.0 % Monocytes (%) (Auto) 5.6 0.0-12.0 % Eosinophils (%) (Auto) 3.9 0.0-7.0 % Basophils (%) (Auto) 0.4 0.0-2.0 % Neutrophils # (Auto) 3.5 1.6-8.6 10 ^3/uL Lymphocytes # (Auto) 2.1 0.4-5.4 10 ^3/uL Monocytes # (Auto) 0.3 0-1.3 10 ^3/uL Eosinophils # (Auto) 0.2 0-0.8 10 ^3/uL Basophils # (Auto) 0 0-0.2 10 ^3/uL Nucleated Red Blood Cells 0.1 % Sodium Level 143 136-145 mmol/L Potassium Level 4.0 3.5-5.1 mmol/L Chloride Level 108 H 98-107 mmol/L Carbon Dioxide Level 24 20-31 mmol/L Anion Gap 11 5-15 Blood Urea Nitrogen 22 9-23 mg/dL Creatinine 1.06 H 0.550-1.02 mg/dL Glomerular Filtration Rate Calc 53 >90 mL/min BUN/Creatinine Ratio 20.8 H 10.0-20.0 Serum Glucose 90 74-106 mg/dL Calcium Level 8.7 8.7-10.4 mg/dL Total Bilirubin 0.3 0.2-1.0 mg/dL Aspartate Amino Transferase (AST) 151 H 13-40 U/L Alanine Aminotransferase (ALT) 55 H 7-40 U/L Alkaline Phosphatase 78 46-116 U/L Total Protein 6.3 5.7-8.2 g/dL Albumin 3.7 3.2-4.8 g/dL Lactic Acid Level 0.7 0.4-2.0 mmol/L Magnesium Level 1.7 1.6-2.6 mg/dL Direct Bilirubin < 0.1 <0.3 mg/dL Ammonia < 10 L 11-32 umol/L Thyroid Stimulating Hormone (TSH) 2.30 0.55-4.78 uIU/mL Troponin I High Sensitivity 72 *H </=34 ng/L Test 07/08/25 14:10 Range/Units Urine Color Yellow Yellow Urine Clarity Clear Clear Urine pH 5.0 5.0-9.0 Urine Specific [place] 1.021 1.001-1.035 Urine Protein 1+ H Negative Urine Ketones Negative Negative Urine Blood Negative Negative /uL Urine Nitrite Negative Negative Urine Bilirubin Negative Negative Urine Urobilinogen Normal Negative mg/dL Urine Leukocyte Esterase Negative Negative /uL Urine RBC 1 0 - 4 /hpf Urine Microscopic WBC < 1 0-5 /HPF Urine Squamous Epithelial Cells None seen <5 /hpf Urine Bacteria None seen None Seen /hpf Urine Glucose Normal Normal mg/dL Microbiology Date/Time Source Procedure Growth Status 07/08/25 22:45 Blood Blood Culture - Preliminary NO GROWTH AFTER 24 HOURS OF INCUBATION. Resulted Assessment ? NSTEMI likely type 2 Sinus Bradycardia Rule out structural heart disease Rule out progressive CAD Hypertensive crisis Mild BAKARI on CKD Parkinson's with the dementia Hypothyroidism Plan/Recommendation We will continue with the following plan/recommendations (Dr. Peters): Echocardiogram to evaluate cardiac function Troponins 76 > 70 > 72. BNP Telemetry EKG Lipid lowering agent BP control with valsartan and hydrochlorothiazide DVT prophylaxis Reviewed telemetry showed bradycardia lowest 39 bpm, patient will qualify for permanent pacemaker implantation if family wants to proceed. Discussed with Dr. Peters. Plan discussed with: Patient, Daughter, Son Date of Service: Jul 10, 2025 Billing Provider: JACQUE MARLOW MD Common Visit Codes: 04522-[id number] CARE 30-74 MIN AMAURI MALAGON RESIDENT Jul 10, 2025 11:00
[2025-07-10] MEDS: hydroCHLOROthiazide 25 MG TAB PO SCH (11:03)
--- NOTE | 2025-07-10 12:36 | DVHPN2 ---
Progress Note - Dictate Date Seen: Jul 10, 2025 Medical Necessity Reason Pt with a Central, PICC or Fol: No Subjective PT WITH ORG HEART DISEASE LABILE BP NOW WITH TACHYBRADY EPISODES HX OF HTN PARKINSON /DEMENTIA CKD / SINGLE KIDNEY MULTIPLE ORTHO PROCEDURES HYPOTHYROIDISM vital signs Vital Sign Date Time Temp Pulse Resp B/P (MAP) Pulse Ox O2 Delivery O2 Flow Rate FiO2 07/10/25 12:30 98.6 79 18 125/56 (79) 100 98.6 07/10/25 08:00 Room Air* 0 21 Total Intake and Output 07/09/25 07/09/25 07/10/25 15:00 23:00 07:00 Intake Total 600 ml Balance 600 ml medications Current Medications Medications Dose Ordered Sig/Kelsi Route Start Time Stop Time Status Last Admin Dose Admin Aspirin 81 mg DAILY PO 07/09/25 10:00 07/10/25 11:02 81 MG Valsartan 80 mg DAILY PO 07/09/25 10:00 07/10/25 11:03 80 MG Levothyroxine Sodium 75 mcg QAM@0600 PO 07/09/25 06:00 07/10/25 06:27 75 MCG Ondansetron HCl 4 mg Q4HP PRN IV 07/08/25 21:30 Acetaminophen 650 mg Q6HP PRN PO 07/08/25 21:30 Enoxaparin Sodium 40 mg DAILY SC 07/08/25 21:30 07/10/25 11:04 40 MG Hydralazine HCl 10 mg Q6HP PRN IV 07/09/25 18:00 07/10/25 06:27 10 MG Hydrochlorothiazide 25 mg DAILY PO 07/10/25 09:45 07/10/25 11:03 25 MG laboratory and microbiology Laboratory Tests 07/09/25 05:14 Test 07/09/25 05:14 Range/Units Serum Glucose 90 74-106 mg/dL Problem List ORG HEART DISEASE LABILE BP NOW WITH TACHYBRADY EPISODES HX OF HTN PARKINSON /DEMENTIA CKD / SINGLE KIDNEY MULTIPLE ORTHO PROCEDURES HYPOTHYROIDISM ANEMIA Assessment/Plan CONSIDER PPI IF FAMILY AND PT ARE AGREEABLE Dietary Evaluation Review Comments: Cardiac diet with Ensure High Protein 240ml PO BID Monitor PO intake to meet 75% of her needs Expected Outcomes/Goals: Improved nutrition related lab values Plan discussed with: Patient Critical Care Time(min): 35 JACQUE MARLOW MD Jul 10, 2025 12:36
--- NOTE | 2025-07-10 13:22 | DVHSR ---
APPROVED REPORT EXAM: Two-dimensional and M-mode echocardiogram with Doppler and color Doppler. Blood Pressure: 144/65 mmHg INDICATION To rule out structural heart disease RISK FACTORS Height: 5'3", Weight: 161 DIMENSIONS LVDd 4.5 (3.8-5.7cm) LA (2D) 2.9 (1.9-4.0cm) Aortic Root (2.0-3.7cm) LVDs 3.1 (2.5-4.0cm) LA (MM) (1.9-4.0cm) Aortic Cusp Exc (1.5-2.0cm) EF (%) 57.0 (55-70%) Rt. Atrium 3.5 (1.9-4.0cm) Asc. Aorta cm IVSd 1.4 (0.7-1.1cm) RV (D) 3.1 (1.8-2.4cm) PWd 1.1 (0.7-1.1cm) Mitral Valve Mitral Mitral Stenosis E wave 0.64m/s MV Mean GR. mmHg A wave 0.92m/s MV Peak GR. mmHg E/A ratio 0.7 2D MVA cm2 DECEL Time 347ms PRESS 1/2 Time ms Aortic Valve Aortic Valve Aortic Stenosis V1 1.26m/s AO Mean GR. 12mmHg V2 2.53m/s AO Peak GR. 26mmHg LVOT Diameter 1.8 (1.8-2.4cm) Doppler TONI 1.27cm2 AI P 1/2 Time 564.53ms Other Information Technically limited study due to body habitus, patient lying flat. Conclusion EF >55% LVH MILD MAC MILD AV SCLEROSIS
[2025-07-10 13:51] LABS: Chloride 104 mmol/L (98-107); Potassium 4.6 mmol/L (3.5-5.1); Sodium 141 mmol/L (136-145)
[2025-07-10 13:52] LABS: Anion Gap 12 (5-15); Calcium 8.9 mg/dL (8.7-10.4); Carbon Dioxide 25 mmol/L (20-31)
[2025-07-10 13:57] LABS: BUN/Creatinine Ratio 16.5 (10.0-20.0); Blood Urea Nitrogen 22 mg/dL (9-23); Glucose 85 mg/dL (74-106)
[2025-07-10 14:01] LABS: Triglycerides 127 mg/dL (< 150)
[2025-07-10 14:03] LABS: HDL Cholesterol 47 mg/dL (40-59)
[2025-07-10 14:05] LABS: Cholesterol 227 mg/dL (< 200)
--- NOTE | 2025-07-10 20:32 | DVHINCON2 ---
Date of service: Jul 10, [address] Dumont Reason for Consultation Uncontrolled Parkinson's tremors History of Present Illness Ms. Estrada is an 80 year old female right-handed female with a history of hypertension, thyroidism, femur fracture, she was brought to the [facility] on 07/08/2025 with a chief complaint of general weakness, gait disturbance, falls, at this time, she is alert, oriented to person, place, with good social skills, but can not provide history. The history is obtained from her daughter and son. But she also has other medical problems She developed mild intermittent tremors in the chin around [id number]. 12/2023, she developed constant tremor in the right arm, later the left arm has been affected, in the right arm is all with more affected. The tremors are constant with no changes no matter the arms are resting or in action (per my observation, much better with the arms are resting). This no change in her voice and facial expression, blinking, she is a good sense of smell,, she does not have chronic constipation, she denies symptoms of RBD. He sees Dr. Coates, a local neurologist, according to the office note, essential tremor was suspected, and she is on primidone 50 mg two tablets at bedtime, which does not help, she also takes Austeto 12mg bid which helps. Coincidentally after her femur fractures two years ago, she has gait disturbance, she used to use a cane but has been using a walker for about one year Since early 2023, she has progressive short-term memory difficulty, it is not safe for her to cook, she can not find her way home in her neighborhood According to her home medication bottles, she is on Aricept 10 mg daily, Austedo 12 mg b.i.d.. primidone 100 mg HS Urinalysis, 07/08/2025: WBC: One, urine leukocyte esterase: Negative WBC/HB/PLT/MCV, 07/09/2025: 6.1/11/174/86.6 BUN/CR, 07/09/2025: 22/1.06 GFR, 07/09/2025: 53 TBI/AST/ALT/AP, 07/09/2025: 0.3/151/55/78 TG/HDL/LDL/HDL, 07/10/2025: 127/227/154/47 TSH, 07/08/2025: 2.3 CT head, 07/08/2025: No acute intracranial findings Past Medical History Hypertension, hypothyroidism, femur fracture, no stroke, no head trauma Past Surgical History Hernia repair, thyroidectomy, knee replacement Family History Diabetes, cancer. No dementia, no tremor, no Parkinson's disease Social History She has no history of tobacco smoking, drug and alcohol abuse Allergies: Coded Allergies: NO KNOWN ALLERGIES (Unverified , 07/08/25) Home Meds Reported Medications Primidone (Primidone) 125 Mg Tab, 100 MG PO DAILY, TAB 07/09/25 Donepezil Hydrochloride (DONEPEZIL HCL) 10 Mg Tab, 1 TAB PO DAILY, #90 TAB 1 Refill 07/09/25 Aspirin (Aspir-81) 81 Mg Tab, 1 TAB PO DAILY, #30 TAB 5 Refills 07/09/25 Levothyroxine Sodium (SYNTHROID TABLET) 100 Mcg Tb, 75 TAB PO DAILY, #90 TAB 3 Refills 07/09/25 Deutetrabenazine (Austedo) 12 Mg Tab, 12 MG PO DAILY, TAB 07/09/25 Valsartan-Hydrochlorothiazide (Diovan Hct) 80 /12.5 Tab, 1 TAB PO DAILY, #30 TAB 5 Refills 07/09/25 Current Medications Current Medications Medications (Trade) Dose Ordered Sig/Kelsi Route PRN Reason Start Time Stop Time Status Last Admin Hydrochlorothiazide (hydroCHLOROthiazide TABLET) 25 mg DAILY PO 07/10/25 09:45 07/10/25 11:03 Review of Systems As above, the other systems are negative Vital Signs Vital Signs Date Time Temp Pulse Resp B/P (MAP) Pulse Ox O2 Delivery O2 Flow Rate FiO2 07/10/25 16:30 97.8 69 17 140/51 (80) 96 97.8 07/10/25 08:00 Room Air* 0 21 Physical Exam GENERAL EXAM: General: the patient is well developed and nourished. No acute distress. HEENT: Normocephalic, neck is supple, no carotid bruits. No mass. RESPIRATORY: Normal respiratory effort with symmetrical lung expansion. Lungs clear to auscultation. CARDIOVASCULAR: Regular rate and rhythm with no murmurs. S1, S2. ABDOMEN: Soft, nontender, normal bowel sound NEUROLOGICAL: MENTAL STATUS: Awake and alert. Oriented to person, place, SPEECH, LANGUAGE, HIGHER CORTICAL FUNCTION: no aphasia or dysathria. CRANIAL NERVES: #2: Intact visual aaron to confrontation. The optic discs were sharp. #3,4,6: Pupils are equal, round and reactive. EOMs full and conjugate. No nystagmus. #5: Facial sensation intact in all three divisions bilaterally. Mandibular strength intact. #7: Facial muscles symmetrical and strength intact. #8: Hearing grossly normal to voice. #9,10: Uvula and soft palate rise in the midline. Swallow and voice are normal. #11: Trapezius and sternomastoid strength intact bilaterally. #12: Tongue midline. No fasciculations or atrophy. SENSATION: Sensation to touch and pinprick is normal. MOTOR: Normal tone in the upper and lower extremity. Normal muscle bulk. No fa sciculations. Muscle strength of the major groups in the upper extremities is 5/5. Muscle strength of the major groups in the lower extremities is 5/5. Shaking in the both upper extremities, right-sided more affected, per my observation, better with the arms are resting. Grimacing movement noticed REFLEXES: Deep tendon reflexes normal and symmetrical. No pathological reflexes. CEREBELLAR/COORDINATION: Finger to nose showed very mild intentional tremors in both hands GAIT/STATION: deferred. Labs/Diagnostic Data Labs Test 07/10/25 13:03 07/09/25 09:15 07/09/25 05:14 07/08/25 22:35 Range/Units Sodium Level 141 136-145 mmol/L Potassium Level 4.6 3.5-5.1 mmol/L Chloride Level 104 98-107 mmol/L Carbon Dioxide Level 25 20-31 mmol/L Anion Gap 12 5-15 Blood Urea Nitrogen 22 9-23 mg/dL Creatinine 1.33 H 0.550-1.02 mg/dL Glomerular Filtration Rate Calc 40 >90 mL/min BUN/Creatinine Ratio 16.5 10.0-20.0 Serum Glucose 85 74-106 mg/dL Calcium Level 8.9 8.7-10.4 mg/dL B-Type Natriuretic Peptide 43.60 0-100 pg/mL Triglycerides Level 127 < 150 mg/dL Cholesterol Level 227 H < 200 mg/dL LDL Cholesterol 154 H < 100 mg/dL HDL Cholesterol 47 40-59 mg/dL Influenza Type A Antigen Negative Negative Influenza Type B Antigen Negative Negative SARS-CoV-2 Antigen (Rapid) Negative NEGATIVE White Blood Count 6.1 # 4.4-10.8 10^3/uL Red Blood Count 3.73 L 4.0-5.20 10^6/uL Hemoglobin 11.0 L 12.2-16.2 g/dL Hematocrit 32.3 L 36.0-46.0 % Mean Corpuscular Volume 86.6 80.0-100.0 fL Mean Corpuscular Hemoglobin 29.6 28.0-32.0 pg Mean Corpuscular Hemoglobin Concent 34.2 32.0-36.0 g/dL Red Cell Distribution Width 13.6 11.8-14.3 % Platelet Count 174 140-450 10^3/uL Mean Platelet Volume 10.2 6.9-10.8 fL Neutrophils (%) (Auto) 56.7 37.0-80.0 % Lymphocytes (%) (Auto) 33.4 10.0-50.0 % Monocytes (%) (Auto) 5.6 0.0-12.0 % Eosinophils (%) (Auto) 3.9 0.0-7.0 % Basophils (%) (Auto) 0.4 0.0-2.0 % Neutrophils # (Auto) 3.5 1.6-8.6 10 ^3/uL Lymphocytes # (Auto) 2.1 0.4-5.4 10 ^3/uL Monocytes # (Auto) 0.3 0-1.3 10 ^3/uL Eosinophils # (Auto) 0.2 0-0.8 10 ^3/uL Basophils # (Auto) 0 0-0.2 10 ^3/uL Nucleated Red Blood Cells 0.1 % Total Bilirubin 0.3 0.2-1.0 mg/dL Aspartate Amino Transferase (AST) 151 H 13-40 U/L Alanine Aminotransferase (ALT) 55 H 7-40 U/L Alkaline Phosphatase 78 46-116 U/L Total Protein 6.3 5.7-8.2 g/dL Albumin 3.7 3.2-4.8 g/dL Lactic Acid Level 0.7 0.4-2.0 mmol/L Magnesium Level 1.7 1.6-2.6 mg/dL Direct Bilirubin < 0.1 <0.3 mg/dL Ammonia < 10 L 11-32 umol/L Thyroid Stimulating Hormone (TSH) 2.30 0.55-4.78 uIU/mL Test 07/08/25 16:08 07/08/25 14:10 Range/Units Troponin I High Sensitivity 72 *H </=34 ng/L Urine Color Yellow Yellow Urine Clarity Clear Clear Urine pH 5.0 5.0-9.0 Urine Specific [place] 1.021 1.001-1.035 Urine Protein 1+ H Negative Urine Ketones Negative Negative Urine Blood Negative Negative /uL Urine Nitrite Negative Negative Urine Bilirubin Negative Negative Urine Urobilinogen Normal Negative mg/dL Urine Leukocyte Esterase Negative Negative /uL Urine RBC 1 0 - 4 /hpf Urine Microscopic WBC < 1 0-5 /HPF Urine Squamous Epithelial Cells None seen <5 /hpf Urine Bacteria None seen None Seen /hpf Urine Glucose Normal Normal mg/dL Microbiology Date/Time Source Procedure Growth Status 07/08/25 22:45 Blood Blood Culture - Preliminary NO GROWTH AFTER 24 HOURS OF INCUBATION. Resulted Assessment Tremors in the upper extremities, remission in the face, ? chorea Essential tremors Parkinson's disease, less likely Dementia Plan/Recommendation Monitoring Supportive treatment Telemetry Continue Austedo 12 mg b.i.d. Cut down primidone to 50 mg HS and gradual wean off Aricept 10 mg q.h.s. Physical therapy More recommendation per clinical course Time spent 55 minutes This medical document was created using an electronic medical record system with [employer] dictation system. Although this document has been carefully reviewed, there may still be some phonetic and typographical errors. These areas are purely typographical due to imperfections of the software programs, and do not reflect any compromise in the patient's medical care. Plan discussed with: Daughter, Son, Other VANESA KAMARA MD Jul 10, 2025 20:32
[2025-07-10] MEDS: DONEPEZIL HYDROCHLORIDE 5 MG TAB PO ONE (20:45)
[2025-07-10] MEDS: PRIMIDONE 50 MG TAB PO SCH (22:00)
[2025-07-10] MEDS: DONEPEZIL HYDROCHLORIDE 5 MG TAB PO SCH (22:04)
[2025-07-11] VITALS (8 sets, daily range): BP systolic 131–151; BP diastolic 55–83; PULSE 54–81; RESP 16–20; TEMP 96.4–98.1; O2SAT 96–99
--- NOTE | 2025-07-11 10:06 | DVHPN2 ---
Reviewed: Care Plan, H&P, Labs, Medications, Previous Orders, Radiology Changes from previous H/P or p: No Changes Eyes: No Pain, No Vision change, No Conjunctivae inflammation, No Eyelid inflammation, No Other, No Redness ENT: No Ear pain, No Ear discharge, No Nose pain, No Nose discharge, No Nose congestion, No Mouth pain, No Mouth swelling, No Throat pain, No Throat swelling, No Other Cardiovascular: No Chest Pain, No Palpitations, No Orthopnea, No Paroxysmal Noc. Dyspnea, No Edema, No Lt Headedness, No Other Respiratory: No Cough, No Dry, No Shortness of breath, No SOB with excertion, No Wheezing, No Hemoptysis, No Pleuritic Pain, No Sputum, No Other Gastrointestinal: No Nausea, No Vomiting, No Abdominal Pain, No Diarrhea, No Constipation, No Melena, No Hematochezia, No Other Genitourinary: No Dysuria, No Frequency, No Incontinence, No Hematuria, No Retention, No Other Musculoskeletal: No other, No neck pain, No shoulder pain, No arm pain, No back pain, No hand pain, No leg pain, No foot pain Skin: No Rash, No Lesions, No Jaundice, No Bruising, No Other Objective Vitals Vital Signs Date Time Temp Pulse Resp B/P (MAP) Pulse Ox O2 Delivery O2 Flow Rate FiO2 07/11/25 08:58 151/61 07/11/25 08:39 97.9 61 18 99 97.9 07/10/25 20:00 Room Air* 0 21 Intake/Output Intake and Output 07/11/25 07:00 Intake Total 1360 ml Balance 1360 ml Intake Oral 1360 ml # Voids 9 Medications Current Medications Medications Dose Ordered Sig/Kelsi Route Start Time Stop Time Status Last Admin Dose Admin Aspirin 81 mg DAILY PO 07/09/25 10:00 07/11/25 08:58 81 MG Valsartan 80 mg DAILY PO 07/09/25 10:00 07/11/25 08:58 80 MG Levothyroxine Sodium 75 mcg QAM@0600 PO 07/09/25 06:00 07/11/25 06:03 75 MCG Ondansetron HCl 4 mg Q4HP PRN IV 07/08/25 21:30 Acetaminophen 650 mg Q6HP PRN PO 07/08/25 21:30 Enoxaparin Sodium 40 mg DAILY SC 07/08/25 21:30 07/11/25 08:58 40 MG Hydralazine HCl 10 mg Q6HP PRN IV 07/09/25 18:00 07/10/25 06:27 10 MG Hydrochlorothiazide 25 mg DAILY PO 07/10/25 09:45 07/11/25 08:58 25 MG Patient Own Medication 12 mg BID PO 07/10/25 22:00 Cancel Primidone 50 mg HS PO 07/10/25 22:00 Donepezil HCl 10 mg HS PO 07/10/25 22:00 07/10/25 22:04 10 MG Patient Own Medication 1 BID PO 07/10/25 22:00 07/11/25 09:00 1 Laboratory Results Laboratory Tests 07/09/25 05:14 07/10/25 13:03 Chemistry Test 07/10/25 13:03 Calcium Level 8.9 mg/dL (8.7-10.4) Lipid panel Test 07/10/25 13:03 Cholesterol Level 227 mg/dL (< 200) H HDL Cholesterol 47 mg/dL (40-59) Triglycerides Level 127 mg/dL (< 150) Cardiac Markers Test 07/10/25 13:03 B-Type Natriuretic Peptide 43.60 pg/mL (0-100) HgA1c, TSH Test 07/10/25 13:03 Thyroid Stimulating Hormone (TSH) 3.09 uIU/mL (0.55-4.78) Urinalysis Test 07/08/25 14:10 Urine Color Yellow (Yellow) Urine Clarity Clear (Clear) Urine pH 5.0 (5.0-9.0) Urine Specific [place] 1.021 (1.001-1.035) Urine Protein 1+ (Negative) H Urine Ketones Negative (Negative) Urine Blood Negative /uL (Negative) Urine Nitrite Negative (Negative) Urine Bilirubin Negative (Negative) Urine Urobilinogen Normal mg/dL (Negative) Urine Leukocyte Esterase Negative /uL (Negative) Urine RBC 1 /hpf (0 - 4) Urine Microscopic WBC < 1 /HPF (0-5) Urine Squamous Epithelial Cells None seen /hpf (<5) Urine Bacteria None seen /hpf (None Seen) Urine Glucose Normal mg/dL (Normal) Microbiology Microbiology Date/Time Source Procedure Growth Status 07/08/25 22:45 Blood Blood Culture - Preliminary NO GROWTH AFTER 48 HOURS OF INCUBATION. Resulted Labs and/or images reviewed: Labs reviewed by me, Image(s) reviewed by me Assessment/Plan Assessment/Plan Acute metabolic encephalopathy rule out sepsis Cognitive dysfunction possibly medication induced Polypharmacy Tachybrady syndrome, cardiology consult by Dr. Louis appreciated, rosita recommended permanent pacemaker implantation if the family agrees, discussed with the family. They do not want to proceed with PPI at the present time; echocardiogram 55 percent ejection fraction BAKARI versus VMN Elevated troponin 72, Non STEMI type 2 , consult for Cardiology Dr. Peters appreciated Hypertension Parkinson's disease ; neurology consult by Dr. Gomez appreciated recommended to continue AUSTEDO 12 mg p.o. b.i.d. reduce primidone to 50 mg p.o. HS Dementia:continue Aricept 10 mg p.o.daily Hypothyroidism: Continue Synthroid 75 mcg a day Bowel incontinence: CT LS spine to rule out any nerve compression Hypertension continue valsartan 80 mg p.o. daily Patient was on trazodone for depression recently discontinued Patient is DNR per patient's son José Luis who is at the bedside General Condition stable Rosa test negative Rapid flu test negative Blood cultures neg Physical Therapy ordered Time taken 60 minutes Advanced care planning time 20 minutes Plan discussed with: Patient Date of Service: Jul 11, 2025 Billing Provider: AMITA HARMON MD Common Visit Codes: [id number] CARE 30-74 MIN AMITA HARMON MD Jul 11, 2025 10:05
[2025-07-11 10:19] LABS: Free T4 (Free Thyroxine) 1.39 ng/dL (0.89-1.76)
[2025-07-11 13:23] LABS: Hematocrit 32.8 % (36.0-46.0); Hemoglobin 11.1 g/dL (12.2-16.2); Mean Corpuscular Hemoglobin 29.3 pg (28.0-32.0); Mean Corpuscular Volume 86.7 fL (80.0-100.0); Nucleated Red Blood Cells % 0.1 %
--- NOTE | 2025-07-11 13:31 | DVHPN2 ---
Progress Note - Dictate Date Seen: Jul 11, 2025 Medical Necessity Reason Pt with a Central, PICC or Fol: No Subjective PT WITH ORG HEART DISEASE LABILE BP NOW WITH TACHYBRADY EPISODES HX OF HTN PARKINSON /DEMENTIA CKD / SINGLE KIDNEY MULTIPLE ORTHO PROCEDURES HYPOTHYROIDISM vital signs Vital Sign Date Time Temp Pulse Resp B/P (MAP) Pulse Ox O2 Delivery O2 Flow Rate FiO2 07/11/25 08:58 151/61 07/11/25 08:39 97.9 61 18 99 97.9 07/10/25 20:00 Room Air* 0 21 Total Intake and Output 07/10/25 07/10/25 07/11/25 15:00 23:00 07:00 Intake Total 560 ml 800 ml Balance 560 ml 800 ml medications Current Medications Medications Dose Ordered Sig/Kelsi Route Start Time Stop Time Status Last Admin Dose Admin Aspirin 81 mg DAILY PO 07/09/25 10:00 07/11/25 08:58 81 MG Valsartan 80 mg DAILY PO 07/09/25 10:00 07/11/25 08:58 80 MG Levothyroxine Sodium 75 mcg QAM@0600 PO 07/09/25 06:00 07/11/25 06:03 75 MCG Ondansetron HCl 4 mg Q4HP PRN IV 07/08/25 21:30 Acetaminophen 650 mg Q6HP PRN PO 07/08/25 21:30 Enoxaparin Sodium 40 mg DAILY SC 07/08/25 21:30 07/11/25 08:58 40 MG Hydralazine HCl 10 mg Q6HP PRN IV 07/09/25 18:00 07/10/25 06:27 10 MG Hydrochlorothiazide 25 mg DAILY PO 07/10/25 09:45 07/11/25 08:58 25 MG Patient Own Medication 12 mg BID PO 07/10/25 22:00 Cancel Primidone 50 mg HS PO 07/10/25 22:00 Donepezil HCl 10 mg HS PO 07/10/25 22:00 07/10/25 22:04 10 MG Patient Own Medication 1 BID PO 07/10/25 22:00 07/11/25 09:00 1 laboratory and microbiology Test 07/11/25 13:01 Range/Units Serum Glucose Pending Problem List ORG HEART DISEASE LABILE BP NOW WITH TACHYBRADY EPISODES HX OF HTN PARKINSON /DEMENTIA CKD / SINGLE KIDNEY MULTIPLE ORTHO PROCEDURES HYPOTHYROIDISM ANEMIA Assessment/Plan CONSIDER PPI IF FAMILY AND PT ARE AGREEABLE FAMILY DEFERRING PPI Dietary Evaluation Review Comments: Cardiac diet with Ensure High Protein 240ml PO BID Monitor PO intake to meet 75% of her needs Expected Outcomes/Goals: Improved nutrition related lab values Plan discussed with: Patient JACQUE MARLOW MD Jul 11, 2025 13:31
--- NOTE | 2025-07-11 13:40 | DVH ---
EXAM: CT LS SPINE WO CONTRAST HISTORY: Bowel incontinence COMPARISON: None CTDIvol 24.76 mGy, DLP 999.71 mGy*cm. TECHNIQUE: Multiple axial CT images of the spine were obtained using bone algorithm. Axial and coronal reformatting was done. Bone and soft tissue windows were reviewed. FINDINGS: Of the lumbar vertebrae are normal in height. There is a mild prominence the lordotic curvature. At L1-2 there is effacement of the thecal sac by bulging disc without significant narrowing of the central canal and neural foramina At L2-3 no narrowing of the central canal and neural foramina At L3-4 slight narrowing of the central canal and neural foramina by diffusely bulging disc shortened pedicles and facet joint hypertrophy. At L4-5 narrowing of the right neural foramen by bulging disc and osteophytes There is partial lumbarization of the upper S1 segment. The L5-S1 disc space unremarkable IMPRESSION: 1. At L4-5 narrowing of the right neural foramen by bulging disc and osteophytes with probable effacement of the exiting right-sided nerve roots 2. At L3-4 [id number] stenosis of the central canal and neural foramina by bulging disc shortened pedicles and facet joint hypertrophy 3. If there is concern for distal cord compression than MR is recommended
[2025-07-11 13:42] LABS: Albumin 3.6 g/dL (3.2-4.8); Alkaline Phosphatase 76 U/L (46-116); Anion Gap 12 (5-15); BUN/Creatinine Ratio 27.1 (10.0-20.0); Bilirubin, Total 0.3 mg/dL (0.2-1.0); Calcium 8.9 mg/dL (8.7-10.4); Carbon Dioxide 28 mmol/L (20-31); Chloride 106 mmol/L (98-107); Glucose 99 mg/dL (74-106); Potassium 4.5 mmol/L (3.5-5.1); Total Protein 5.9 g/dL (5.7-8.2)
[2025-07-11 13:45] LABS: Alanine Aminotransferase 42 U/L (7-40); Blood Urea Nitrogen 39 mg/dL (9-23); Sodium 146 mmol/L (136-145)
--- NOTE | 2025-07-11 16:08 | DVHPN2 ---
Progress Note Date Seen: Jul 11, 2025 Resident Creating Document: AMAURI MALAGON RESIDENT Medical Necessity Reason Pt with a Central, PICC or Fol: No Subjective Review of Systems Patient seen and examined at the bedside. No new complaints at this time. Reviewed telemetry. Objective vital signs Vital Sign Date Time Temp Pulse Resp B/P (MAP) Pulse Ox O2 Delivery O2 Flow Rate FiO2 07/11/25 13:00 96.4 61 20 132/55 (80) 98 96.4 07/11/25 08:00 Room Air* 0 21 Total Intake and Output 07/10/25 07/10/25 07/11/25 15:00 23:00 07:00 Intake Total 560 ml 800 ml Balance 560 ml 800 ml medications Current Medications Medications Dose Ordered Sig/Kelsi Route Start Time Stop Time Status Last Admin Dose Admin Aspirin 81 mg DAILY PO 07/09/25 10:00 07/11/25 08:58 81 MG Valsartan 80 mg DAILY PO 07/09/25 10:00 07/11/25 08:58 80 MG Levothyroxine Sodium 75 mcg QAM@0600 PO 07/09/25 06:00 07/11/25 06:03 75 MCG Ondansetron HCl 4 mg Q4HP PRN IV 07/08/25 21:30 Acetaminophen 650 mg Q6HP PRN PO 07/08/25 21:30 Enoxaparin Sodium 40 mg DAILY SC 07/08/25 21:30 07/11/25 08:58 40 MG Hydralazine HCl 10 mg Q6HP PRN IV 07/09/25 18:00 07/10/25 06:27 10 MG Hydrochlorothiazide 25 mg DAILY PO 07/10/25 09:45 07/11/25 08:58 25 MG Patient Own Medication 12 mg BID PO 07/10/25 22:00 Cancel Primidone 50 mg HS PO 07/10/25 22:00 Donepezil HCl 10 mg HS PO 07/10/25 22:00 07/10/25 22:04 10 MG Patient Own Medication 1 BID PO 07/10/25 22:00 07/11/25 09:00 1 Examination Pt is lying on bed General Appearance: Alert, Oriented X2, Cooperative, Not in acute distress HEENT: Atraumatic, Mucous membranes moist/pink Respiratory: Clear to auscultation, Normal air movement, No added sounds Cardiovascular: Regular rate, Normal S1, Normal S2, No murmurs Abdominal: Active bowel sounds, Soft, no distention, no tenderness Extremities: No edema, Normal pulses, No tenderness/swelling Skin: No Significant rash, except past surgical scars Neuro: Normal speech, resting tremors Nurse was there as custom designer during examination laboratory and microbiology Laboratory Tests 07/11/25 13:01 Test 07/11/25 13:01 Range/Units Serum Glucose 99 74-106 mg/dL Microbiology Date/Time Source Procedure Growth Status 07/08/25 22:45 Blood Blood Culture - Preliminary NO GROWTH AFTER 48 HOURS OF INCUBATION. Resulted Labs and/or images reviewed: Labs reviewed by me, Image(s) reviewed by me Problem List/Assessment/Plan Problem List/Assessment/Plan Assessment ? NSTEMI likely type 2 Sinus Bradycardia Ruled out structural heart disease Rule out progressive CAD Hypertensive crisis Mild BAKARI on CKD Parkinson's with the dementia Hypothyroidism Plan/Recommendation We will continue with the following plan/recommendations (Dr. Peters): Echocardiogram to evaluate cardiac function Conclusion EF >55% LVH MILD MAC MILD AV SCLEROSIS Troponins 76 > 70 > 72. BNP Telemetry EKG Lipid lowering agent BP control with valsartan and hydrochlorothiazide DVT prophylaxis Patient will qualify for permanent pacemaker but family decided they do not want it for now, conservative management, avoid kina blocking agents Discussed with Dr. Peters. we will sign off, thank you for allowing us to participate inpatient care. Call for any queries. Plan discussed with: Patient, Daughter, Son Dietary Evaluation Review Comments: Cardiac diet with Ensure High Protein 240ml PO BID Monitor PO intake to meet 75% of her needs Expected Outcomes/Goals: Improved nutrition related lab values Date of Service: Jul 11, 2025 Billing Provider: JACQUE MARLOW MD Common Visit Codes: [id number] CARE 30-74 MIN AMAURI MALAGON RESIDENT Jul 11, 2025 16:08
--- NOTE | 2025-07-11 22:05 | DVHPN2 ---
Progress Note - Dictate Date Seen: Jul 11, 2025 Medical Necessity Reason Pt with a Central, PICC or Fol: No Subjective Ms. Estrada is an 80 year old female right-handed female with a history of hypertension, thyroidism, femur fracture, she was brought to the [facility] on 07/08/2025 with a chief complaint of general weakness, gait disturbance, falls, I have seen and examined the patient, talked to her nurse, and the daughter. She is doing fine, but she sleeps a lot today According to her home medication bottles, she is on Aricept 10 mg daily, Austedo 12 mg b.i.d.. primidone 100 mg HS Urinalysis, 07/08/2025: WBC: One, urine leukocyte esterase: Negative WBC/HB/PLT/MCV, 07/09/2025: 6.1//174/86.6 BUN/CR, 07/09/2025: 22/1.06 GFR, 07/09/2025: 53 TBI/AST/ALT/AP, 07/09/2025: 0.3/151/55/78 TG/HDL/LDL/HDL, 07/10/2025: 127/227/154/47 TSH, 07/08/2025: 2.3 CT head, 07/08/2025: No acute intracranial findings vital signs Vital Sign Date Time Temp Pulse Resp B/P (MAP) Pulse Ox O2 Delivery O2 Flow Rate FiO2 07/11/25 21:00 98.1 81 18 131/77 (95) 98 98.1 07/11/25 08:00 Room Air* 0 21 Total Intake and Output 07/10/25 07/10/25 07/11/25 15:00 23:00 07:00 Intake Total 560 ml 800 ml Balance 560 ml 800 ml medications Current Medications Medications Dose Ordered Sig/Kelsi Route Start Time Stop Time Status Last Admin Dose Admin Aspirin 81 mg DAILY PO 07/09/25 10:00 07/11/25 08:58 81 MG Valsartan 80 mg DAILY PO 07/09/25 10:00 07/11/25 08:58 80 MG Levothyroxine Sodium 75 mcg QAM@0600 PO 07/09/25 06:00 07/11/25 06:03 75 MCG Ondansetron HCl 4 mg Q4HP PRN IV 07/08/25 21:30 Acetaminophen 650 mg Q6HP PRN PO 07/08/25 21:30 Enoxaparin Sodium 40 mg DAILY SC 07/08/25 21:30 07/11/25 08:58 40 MG Hydralazine HCl 10 mg Q6HP PRN IV 07/09/25 18:00 07/10/25 06:27 10 MG Hydrochlorothiazide 25 mg DAILY PO 07/10/25 09:45 07/11/25 08:58 25 MG Patient Own Medication 12 mg BID PO 07/10/25 22:00 Cancel Primidone 50 mg HS PO 07/10/25 22:00 07/11/25 21:44 50 MG Donepezil HCl 10 mg HS PO 07/10/25 22:00 07/11/25 21:44 10 MG Patient Own Medication 1 BID PO 07/10/25 22:00 07/11/25 21:44 1 objective General: the patient is well developed and nourished. No acute distress. MENTAL STATUS: Awake and alert. Oriented to person, place, SPEECH, LANGUAGE, HIGHER CORTICAL FUNCTION: no aphasia or dysathria. CRANIAL NERVES: Pupils are equal, round and reactive. EOMs full and conjugate. No nystagmus. Facial sensation intact in all three divisions bilaterally. Mandibular strength intact. Facial muscles symmetrical and strength intact. Tongue midline. No fasciculations or atrophy. SENSATION: Sensation to touch and pinprick is normal. MOTOR: Normal tone in the upper and lower extremity. Normal muscle bulk. No fasciculations. Muscle strength of the major groups in the extremities is 5/5. Shaking in the both upper extremities, right-sided more affected, per my observation, better with the arms are resting. Grimacing movement noticed REFLEXES: Deep tendon reflexes normal and symmetrical. No pathological reflexes. CEREBELLAR/COORDINATION: Finger to nose showed very mild intentional tremors in both hands GAIT/STATION: deferred. laboratory and microbiology Laboratory Tests 07/11/25 13:01 Test 07/11/25 13:01 Range/Units Serum Glucose 99 74-106 mg/dL Problem List Tremors in the upper extremities, remission in the face, ? chorea Essential tremors Parkinson's disease, less likely Dementia Assessment/Plan Monitoring Supportive treatment Telemetry Continue Austedo 12 mg b.i.d. Cut down primidone to 25 mg HS and gradual wean off Aricept 10 mg q.h.s. Physical therapy More recommendation per clinical course This medical document was created using an electronic medical record system with [employer] dictation system. Although this document has been carefully reviewed, there may still be some phonetic and typographical errors. These areas are purely typographical due to imperfections of the software programs, and do not reflect any compromise in the patient's medical care. Prognosis poor Dietary Evaluation Review Comments: Cardiac diet with Ensure High Protein 240ml PO BID Monitor PO intake to meet 75% of her needs Expected Outcomes/Goals: Improved nutrition related lab values Plan discussed with: Daughter, Other Total Time (mins): 35 VANESA KAMARA MD Jul 11, 2025 22:05
[2025-07-12] VITALS (8 sets, daily range): BP systolic 38–142; BP diastolic 39–66; PULSE 50–74; RESP 16–18; TEMP 96.8–97.6; O2SAT 96–98
[2025-07-12 05:03] LABS: Hematocrit 34.3 % (36.0-46.0); Hemoglobin 11.4 g/dL (12.2-16.2); Mean Corpuscular Hemoglobin 29.0 pg (28.0-32.0); Mean Corpuscular Volume 87.1 fL (80.0-100.0); Nucleated Red Blood Cells % 0.1 %
[2025-07-12 05:26] LABS: Alanine Aminotransferase 35 U/L (7-40); Albumin 3.7 g/dL (3.2-4.8); Alkaline Phosphatase 71 U/L (46-116); Anion Gap 11 (5-15); BUN/Creatinine Ratio 24.1 (10.0-20.0); Bilirubin, Total 0.3 mg/dL (0.2-1.0); Calcium 8.9 mg/dL (8.7-10.4); Carbon Dioxide 27 mmol/L (20-31); Chloride 107 mmol/L (98-107); Glucose 98 mg/dL (74-106); Potassium 4.4 mmol/L (3.5-5.1); Sodium 145 mmol/L (136-145); Total Protein 6.4 g/dL (5.7-8.2)
[2025-07-12 05:30] LABS: Blood Urea Nitrogen 34 mg/dL (9-23)
--- NOTE | 2025-07-12 07:55 | DVHPN2 ---
Reviewed: Care Plan, H&P, Labs, Medications, Previous Orders, Radiology Changes from previous H/P or p: No Changes Eyes: No Pain, No Vision change, No Conjunctivae inflammation, No Eyelid inflammation, No Other, No Redness ENT: No Ear pain, No Ear discharge, No Nose pain, No Nose discharge, No Nose congestion, No Mouth pain, No Mouth swelling, No Throat pain, No Throat swelling, No Other Cardiovascular: No Chest Pain, No Palpitations, No Orthopnea, No Paroxysmal Noc. Dyspnea, No Edema, No Lt Headedness, No Other Respiratory: No Cough, No Dry, No Shortness of breath, No SOB with excertion, No Wheezing, No Hemoptysis, No Pleuritic Pain, No Sputum, No Other Gastrointestinal: No Nausea, No Vomiting, No Abdominal Pain, No Diarrhea, No Constipation, No Melena, No Hematochezia, No Other Genitourinary: No Dysuria, No Frequency, No Incontinence, No Hematuria, No Retention, No Other Musculoskeletal: No other, No neck pain, No shoulder pain, No arm pain, No back pain, No hand pain, No leg pain, No foot pain Skin: No Rash, No Lesions, No Jaundice, No Bruising, No Other Objective Vitals Vital Signs Date Time Temp Pulse Resp B/P (MAP) Pulse Ox O2 Delivery O2 Flow Rate FiO2 07/12/25 05:00 97.6 50 18 38/51 (47) 98 97.6 07/11/25 20:00 Room Air* 0 21 Intake/Output Intake and Output 07/12/25 07:00 Intake Total 710 ml Balance 710 ml Intake Oral 710 ml # Voids 3 Medications Current Medications Medications Dose Ordered Sig/Kelsi Route Start Time Stop Time Status Last Admin Dose Admin Aspirin 81 mg DAILY PO 07/09/25 10:00 07/11/25 08:58 81 MG Valsartan 80 mg DAILY PO 07/09/25 10:00 07/11/25 08:58 80 MG Levothyroxine Sodium 75 mcg QAM@0600 PO 07/09/25 06:00 07/12/25 05:57 75 MCG Ondansetron HCl 4 mg Q4HP PRN IV 07/08/25 21:30 Acetaminophen 650 mg Q6HP PRN PO 07/08/25 21:30 Enoxaparin Sodium 40 mg DAILY SC 07/08/25 21:30 07/11/25 08:58 40 MG Hydralazine HCl 10 mg Q6HP PRN IV 07/09/25 18:00 07/10/25 06:27 10 MG Hydrochlorothiazide 25 mg DAILY PO 07/10/25 09:45 07/11/25 08:58 25 MG Patient Own Medication 12 mg BID PO 07/10/25 22:00 Cancel Donepezil HCl 10 mg HS PO 07/10/25 22:00 07/11/25 21:44 10 MG Patient Own Medication 1 BID PO 07/10/25 22:00 07/11/25 21:44 1 Primidone 25 mg HS PO 07/12/25 22:00 Laboratory Results Laboratory Tests 07/12/25 04:28 Chemistry Test 07/11/25 13:01 07/12/25 04:28 Albumin 3.6 g/dL (3.2-4.8) 3.7 g/dL (3.2-4.8) Calcium Level 8.9 mg/dL (8.7-10.4) 8.9 mg/dL (8.7-10.4) Total Protein 5.9 g/dL (5.7-8.2) 6.4 g/dL (5.7-8.2) LFT Test 07/11/25 13:01 07/12/25 04:28 Alanine Aminotransferase (ALT) 42 U/L (7-40) H 35 U/L (7-40) Alkaline Phosphatase 76 U/L (46-116) 71 U/L (46-116) Aspartate Amino Transferase (AST) 59 U/L (13-40) H 45 U/L (13-40) H Total Bilirubin 0.3 mg/dL (0.2-1.0) 0.3 mg/dL (0.2-1.0) Urinalysis Test 07/08/25 14:10 Urine Color Yellow (Yellow) Urine Clarity Clear (Clear) Urine pH 5.0 (5.0-9.0) Urine Specific [place] 1.021 (1.001-1.035) Urine Protein 1+ (Negative) H Urine Ketones Negative (Negative) Urine Blood Negative /uL (Negative) Urine Nitrite Negative (Negative) Urine Bilirubin Negative (Negative) Urine Urobilinogen Normal mg/dL (Negative) Urine Leukocyte Esterase Negative /uL (Negative) Urine RBC 1 /hpf (0 - 4) Urine Microscopic WBC < 1 /HPF (0-5) Urine Squamous Epithelial Cells None seen /hpf (<5) Urine Bacteria None seen /hpf (None Seen) Urine Glucose Normal mg/dL (Normal) Microbiology Microbiology Date/Time Source Procedure Growth Status 07/08/25 22:45 Blood Blood Culture - Preliminary NO GROWTH AFTER 72 HOURS OF INCUBATION. Resulted Labs and/or images reviewed: Labs reviewed by me, Image(s) reviewed by me Assessment/Plan Assessment/Plan Acute metabolic encephalopathy rule out sepsis Cognitive dysfunction possibly medication induced Polypharmacy Tachybrady syndrome, cardiology consult by Dr. Louis appreciated, family now requesting permanent pacemaker implantation; echocardiogram 55 percent ejection fraction BAKARI versus VMN: Consult for Nephrology Elevated troponin 72, Non STEMI type 2 , consult for Cardiology Dr. Peters appreciated Hypertension Parkinson's disease ; neurology consult by Dr. oGmez appreciated recommended to continue AUSTEDO 12 mg p.o. b.i.d. reduce primidone to 50 mg p.o. HS Dementia:continue Aricept 10 mg p.o.daily Hypothyroidism: Continue Synthroid 75 mcg a day Bowel incontinence: CT LS spine: 1. At L4-5 narrowing of the right neural foramen by bulging disc and osteophytes with probable effacement of the exiting right-sided nerve roots 2. At L3-4 [id number] stenosis of the central canal and neural foramina by bulging disc shortened pedicles and facet joint hypertrophy MRI LS spine ordered Hypertension continue valsartan 80 mg p.o. daily Patient was on trazodone for depression recently discontinued Patient is DNR per patient's son José Luis who is at the bedside General Condition stable Rosa test negative Rapid flu test negative Blood cultures neg Physical Therapy ordered Time taken 50 minutes Advanced care planning time 20 minutes Discussed diagnosis management and plan of care with the patient's daughter Jade at bedside Plan discussed with: Patient My Orders Orders - AMITA HARMON MD Procedure Category Date Status Time Ls Spine Wo Contrast CT 07/11/25 Resulted 10:00 * [facility] CONS 07/11/25 Transmitted Consult Communication Order ORDERS 07/11/25 Transmitted 11:30 Lumbar Spine Wo MRI 07/12/25 Logged Contrast 07:38 *Dr. [facility] CONS 07/12/25 Transmitted -[place] 07:38 Comprehensive LAB 07/13/25 Verified Metabolic Panel 05:00 Comprehensive LAB 07/14/25 Verified Metabolic Panel 05:00 Comprehensive LAB 07/15/25 Verified Metabolic Panel 05:00 Complete Blood Count LAB 07/13/25 Verified 05:00 Complete Blood Count LAB 07/14/25 Verified 05:00 Complete Blood Count LAB 07/15/25 Verified 05:00 Date of Service: Jul 12, 2025 Billing Provider: AMITA HARMON MD Common Visit Codes: [id number] CARE 30-74 MIN AMITA HARMON MD Jul 12, 2025 07:55
--- NOTE | 2025-07-12 11:43 | DVH ---
INDICATION: BAKARI TECHNIQUE: Multiple real-time sonographic images of the kidneys and bladder were obtained. COMPARISON: US LIVER on DOS: 07/09/25 FINDINGS: The right kidney measures 10 cm in length, which is normal in size. There is normal echogenicity of the right kidney. No hydronephrosis. LEFT LOWER QUADRANT PELVIC KIDNEY IS NOTED MEASURING 8 CM WITHOUT HYDRONEPHROSIS. IMPRESSION: 1. Normal sonographic appearance of the kidneys. No hydronephrosis.
--- NOTE | 2025-07-12 12:15 | DVHCONRES ---
Date Seen: Jul 12, 2025 Resident Creating Document: BHAVIN SHARMA RESDIENT History of Present Illness 80-year-old female with a past medical history of Dementia, Parkinson's disease, hypertension, hypothyroidism has been brought by her son, with chief complaints of patient being increasingly hypersomnolent and generalized weakness. Patient has dementia, unable to recall much, so history was taken from son. According to the son, patient began a new medication for tardive dyskinesia (Austredo) 1 month ago which caused her to have insomnia and since last patient was prescribed trazodone 50 mg for sleep. Since then, she she has been increasingly somnolent so her son decrease the dose to half but patient has been more confused than her baseline and weak. Son reports that the patient used a walker to ambulate in the past, but in the last 2 days she has stopped walking at all and does not get out of bed. He states that he found her on the floor 2 days ago, reporting she might have fallen out of the bed, but does not know if she sustained head injury. Allergies: Coded Allergies: NO KNOWN ALLERGIES (Unverified , 07/08/25) Home Meds Reported Medications Primidone (Primidone) 125 Mg Tab, 100 MG PO DAILY, TAB 07/09/25 Donepezil Hydrochloride (DONEPEZIL HCL) 10 Mg Tab, 1 TAB PO DAILY, #90 TAB 1 Refill 07/09/25 Aspirin (Aspir-81) 81 Mg Tab, 1 TAB PO DAILY, #30 TAB 5 Refills 07/09/25 Levothyroxine Sodium (SYNTHROID TABLET) 100 Mcg Tb, 75 TAB PO DAILY, #90 TAB 3 Refills 07/09/25 Deutetrabenazine (Austedo) 12 Mg Tab, 12 MG PO DAILY, TAB 07/09/25 Valsartan-Hydrochlorothiazide (Diovan Hct) 80 /12.5 Tab, 1 TAB PO DAILY, #30 TAB 5 Refills 07/09/25 Current Medications Current Medications Medications (Trade) Dose Ordered Sig/Kelsi Route PRN Reason Start Time Stop Time Status Last Admin Primidone (Mysoline Tablet) 25 mg HS PO 07/12/25 22:00 Review of Systems Patient seen and examined at the bedside. Patient is feeling better since admission and does not report any active complaint. Vital Signs Vital Signs Date Time Temp Pulse Resp B/P (MAP) Pulse Ox O2 Delivery O2 Flow Rate FiO2 07/12/25 09:38 136/51 07/12/25 09:00 96.8 61 16 96 96.8 07/11/25 20:00 Room Air* 0 21 Physical Exam General Appearance: Alert, Oriented X3, Cooperative, No acute distress HEENT: Atraumatic, PERRLA, EOMI, dry mucous membranes Respiratory: Clear to auscultation, Normal air movement Cardiovascular: Regular rate, Normal S1, Normal S2, No murmurs, no chest wall tenderness Abdominal: Normal bowel sounds, Soft, No tenderness, No hepatospenomegaly, No masses Extremities: No clubbing, No cyanosis, No edema, Normal pulses, No tenderness/swelling Skin: Decreased skin turgor Neuro: Normal gait, Normal speech, Strength at 5/5 X4 ext, Normal tone, Sensation intact, Cranial nerves 3-12 NL, Reflexes 2+ Psych/Mental Status: Mental status NL, Mood NL Labs/Diagnostic Data Labs Test 07/12/25 04:28 07/10/25 13:03 07/09/25 09:15 07/08/25 22:35 Range/Units White Blood Count 5.3 4.4-10.8 10^3/uL Red Blood Count 3.94 L 4.0-5.20 10^6/uL Hemoglobin 11.4 L 12.2-16.2 g/dL Hematocrit 34.3 L 36.0-46.0 % Mean Corpuscular Volume 87.1 80.0-100.0 fL Mean Corpuscular Hemoglobin 29.0 28.0-32.0 pg Mean Corpuscular Hemoglobin Concent 33.3 32.0-36.0 g/dL Red Cell Distribution Width 13.8 11.8-14.3 % Platelet Count 194 140-450 10^3/uL Mean Platelet Volume 9.9 6.9-10.8 fL Neutrophils (%) (Auto) 48.7 37.0-80.0 % Lymphocytes (%) (Auto) 38.9 10.0-50.0 % Monocytes (%) (Auto) 6.7 0.0-12.0 % Eosinophils (%) (Auto) 5.3 0.0-7.0 % Basophils (%) (Auto) 0.4 0.0-2.0 % Neutrophils # (Auto) 2.6 1.6-8.6 10 ^3/uL Lymphocytes # (Auto) 2.1 0.4-5.4 10 ^3/uL Monocytes # (Auto) 0.4 0-1.3 10 ^3/uL Eosinophils # (Auto) 0.3 0-0.8 10 ^3/uL Basophils # (Auto) 0 0-0.2 10 ^3/uL Nucleated Red Blood Cells 0.1 % Sodium Level 145 136-145 mmol/L Potassium Level 4.4 3.5-5.1 mmol/L Chloride Level 107 98-107 mmol/L Carbon Dioxide Level 27 20-31 mmol/L Anion Gap 11 5-15 Blood Urea Nitrogen 34 H 9-23 mg/dL Creatinine 1.41 H 0.550-1.02 mg/dL Glomerular Filtration Rate Calc 38 >90 mL/min BUN/Creatinine Ratio 24.1 H 10.0-20.0 Serum Glucose 98 74-106 mg/dL Calcium Level 8.9 8.7-10.4 mg/dL Phosphorus Level 5.3 H 2.4-5.1 mg/dL Total Bilirubin 0.3 0.2-1.0 mg/dL Aspartate Amino Transferase (AST) 45 H 13-40 U/L Alanine Aminotransferase (ALT) 35 7-40 U/L Alkaline Phosphatase 71 46-116 U/L Total Protein 6.4 5.7-8.2 g/dL Albumin 3.7 3.2-4.8 g/dL Vitamin D 25-Hydroxy 79.4 30.0-100 ng/mL Parathyroid Hormone (Intact) 63.0 18.4-80.1 pg/mL B-Type Natriuretic Peptide 43.60 0-100 pg/mL Triglycerides Level 127 < 150 mg/dL Cholesterol Level 227 H < 200 mg/dL LDL Cholesterol 154 H < 100 mg/dL HDL Cholesterol 47 40-59 mg/dL Vitamin B12 Level 285 211-911 pg/mL Folic Acid 5.09 >5.38 ng/mL Thyroid Stimulating Hormone (TSH) 3.09 0.55-4.78 uIU/mL Free Thyroxine (T4) Calculated 1.39 0.89-1.76 ng/dL Influenza Type A Antigen Negative Negative Influenza Type B Antigen Negative Negative SARS-CoV-2 Antigen (Rapid) Negative NEGATIVE Lactic Acid Level 0.7 0.4-2.0 mmol/L Magnesium Level 1.7 1.6-2.6 mg/dL Direct Bilirubin < 0.1 <0.3 mg/dL Ammonia < 10 L 11-32 umol/L Test 07/08/25 16:08 07/08/25 14:10 Range/Units Troponin I High Sensitivity 72 *H </=34 ng/L Urine Color Yellow Yellow Urine Clarity Clear Clear Urine pH 5.0 5.0-9.0 Urine Specific [place] 1.021 1.001-1.035 Urine Protein 1+ H Negative Urine Ketones Negative Negative Urine Blood Negative Negative /uL Urine Nitrite Negative Negative Urine Bilirubin Negative Negative Urine Urobilinogen Normal Negative mg/dL Urine Leukocyte Esterase Negative Negative /uL Urine RBC 1 0 - 4 /hpf Urine Microscopic WBC < 1 0-5 /HPF Urine Squamous Epithelial Cells None seen <5 /hpf Urine Bacteria None seen None Seen /hpf Urine Glucose Normal Normal mg/dL Microbiology Date/Time Source Procedure Growth Status 07/08/25 22:45 Blood Blood Culture - Preliminary NO GROWTH AFTER 72 HOURS OF INCUBATION. Resulted Assessment This is an 80-year-old lady with past medical history of dementia, Parkinson disease, hypertension, hypothyroidism, CKD (3 B), brought in to the hospital due to generalized weakness and decreased oral intake. BAKARI on CKD (possibly 3B, per family report, baseline record not available), hemodynamic mediated etiology Hypovolemia Mild anemia Dementia and Parkinson disease Hyperphosphatemia Hypertension Hypothyroidism Non ST-elevation PR Degenerative spine disease Plan/recommendation: (Dr. Duke) * IV fluid at 70 cc per hour, 1 L * Stopped hydrochlorothiazide * Continue valsartan 80 mg daily * Check kidney ultrasound, urine sodium, creatinine and protein/creatinine ratio * Strict I&Os * Avoid nephrotoxic medication * We will follow up with the patient Thank you for giving us the opportunity to take care of your patient. Please c all back if you have any question/concerns. Addendum Patient seen and examined, plan discussed with resident. Agree with above, we will follow closely Discussed with daughter bedside Plan discussed with: Patient, Daughter, Son, Other (RN) BHAVIN SHARMA Jul 12, 2025 12:15 ALEXANDREA DUKE MD Jul 12, 2025 13:58
[2025-07-12] MEDS: SODIUM CHLORIDE 0.9% 1,000 ML IV ONE (14:00)
--- NOTE | 2025-07-12 14:43 | DVH ---
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 FINDINGS: Multilevel disc degeneration. Alignment: Grade 1 retrolisthesis of L1 on L2. Grade 1 retrolisthesis of L2 on L3. Grade 1 anterolisthesis of L4 on L5. Vertebrae: Vertebral body height is well maintained without evidence of a recent compression fracture. Conus: Conus medullaris terminates at the L2 level. T12-L1: Disc desiccation and 0.9 mm disc bulge. No spinal canal or neural foraminal stenosis. Facet arthrosis. L1-2: Grade 1 retrolisthesis of L1 on L2 by 3.1 mm. Disc desiccation and disc bulge. No spinal canal or neural foraminal stenosis. Facet arthrosis. L2-3: Grade 1 retrolisthesis of L2 on L3 by 3.8 mm. Disc desiccation and 4.9 mm disc bulge. Mild bilateral subarticular zone stenosis. Mild bilateral foraminal stenosis. Facet arthrosis. L3-4: Disc desiccation and 3.65 mm disc bulge. Mild spinal canal stenosis. Mild bilateral subarticular zone stenosis. Mild bilateral foraminal stenosis. Facet arthrosis. L4-5: Grade 1 anterolisthesis of L4 on L5 by 3.1 mm. Disc desiccation and disc bulge. Moderate spinal canal stenosis. Severe bilateral subarticular zone stenosis with bilateral descending L5 nerve root compression. Mild bilateral foraminal stenosis. Facet arthrosis. L5-S1: Disc desiccation and disc bulge. No spinal canal stenosis. Mild bilateral foraminal stenosis. Facet arthrosis. IMPRESSION: 1. Multilevel disc degeneration. Multilevel spinal canal stenosis, most pronounced and moderate at L4-L5. Multilevel subarticular zone stenosis, most pronounced and severe at L4-L5 with bilateral descending L5 nerve root compression. Multilevel foraminal stenosis, most pronounced and mild at L4-L5.
--- NOTE | 2025-07-12 15:51 | DVHPN2 ---
Progress Note - Dictate Date Seen: Jul 12, 2025 Medical Necessity Reason Pt with a Central, PICC or Fol: No Subjective PT WITH ORG HEART DISEASE LABILE BP NOW WITH TACHYBRADY EPISODES HX OF HTN PARKINSON /DEMENTIA CKD / SINGLE KIDNEY MULTIPLE ORTHO PROCEDURES HYPOTHYROIDISM vital signs Vital Sign Date Time Temp Pulse Resp B/P (MAP) Pulse Ox O2 Delivery O2 Flow Rate FiO2 07/12/25 13:00 97.6 62 18 124/39 (67) 97 97.6 07/11/25 20:00 Room Air* 0 21 Total Intake and Output 07/11/25 07/11/25 07/12/25 15:00 23:00 07:00 Intake Total 360 ml 350 ml Balance 360 ml 350 ml medications Current Medications Medications Dose Ordered Sig/Kelsi Route Start Time Stop Time Status Last Admin Dose Admin Aspirin 81 mg DAILY PO 07/09/25 10:00 07/12/25 09:38 81 MG Valsartan 80 mg DAILY PO 07/09/25 10:00 07/12/25 09:38 80 MG Levothyroxine Sodium 75 mcg QAM@0600 PO 07/09/25 06:00 07/12/25 05:57 75 MCG Ondansetron HCl 4 mg Q4HP PRN IV 07/08/25 21:30 Acetaminophen 650 mg Q6HP PRN PO 07/08/25 21:30 Enoxaparin Sodium 40 mg DAILY SC 07/08/25 21:30 07/12/25 09:37 40 MG Hydralazine HCl 10 mg Q6HP PRN IV 07/09/25 18:00 07/10/25 06:27 10 MG Patient Own Medication 12 mg BID PO 07/10/25 22:00 Cancel Donepezil HCl 10 mg HS PO 07/10/25 22:00 07/11/25 21:44 10 MG Patient Own Medication 1 BID PO 07/10/25 22:00 07/12/25 09:39 1 Primidone 25 mg HS PO 07/12/25 22:00 laboratory and microbiology Laboratory Tests 07/12/25 04:28 Test 07/12/25 04:28 Range/Units Serum Glucose 98 74-106 mg/dL Problem List ORG HEART DISEASE LABILE BP NOW WITH TACHYBRADY EPISODES HX OF HTN PARKINSON /DEMENTIA CKD / SINGLE KIDNEY MULTIPLE ORTHO PROCEDURES HYPOTHYROIDISM ANEMIA Assessment/Plan CONSIDER PPI IF FAMILY AND PT ARE AGREEABLE FAMILY DEFERRING PPI NOW FAMILY AGREEABLE TO PPI BECAUSE OF EPISODE OF BRADYCARDIA AGAIN Dietary Evaluation Review Comments: Cardiac diet with Ensure High Protein 240ml PO BID Monitor PO intake to meet 75% of her needs Expected Outcomes/Goals: Improved nutrition related lab values Plan discussed with: Patient JACQUE MARLOW MD Jul 12, 2025 15:51
[2025-07-12] MEDS: PRIMIDONE 50 MG TAB PO SCH (22:00)
[2025-07-13] VITALS (8 sets, daily range): BP systolic 117–146; BP diastolic 61–76; PULSE 56–76; RESP 17–18; TEMP 98–98.9; O2SAT 95–98
[2025-07-13 05:14] LABS: Hematocrit 32.0 % (36.0-46.0); Hemoglobin 10.6 g/dL (12.2-16.2); Mean Corpuscular Hemoglobin 29.1 pg (28.0-32.0); Mean Corpuscular Volume 87.4 fL (80.0-100.0); Nucleated Red Blood Cells % 0.0 %
[2025-07-13 05:23] LABS: Alanine Aminotransferase 28 U/L (7-40); Alkaline Phosphatase 68 U/L (46-116); Anion Gap 12 (5-15); BUN/Creatinine Ratio 31.7 (10.0-20.0); Carbon Dioxide 26 mmol/L (20-31); Glucose 103 mg/dL (74-106); Potassium 4.2 mmol/L (3.5-5.1); Total Protein 6.1 g/dL (5.7-8.2)
[2025-07-13 05:24] LABS: Albumin 3.6 g/dL (3.2-4.8); Bilirubin, Total 0.4 mg/dL (0.2-1.0)
[2025-07-13 05:28] LABS: Blood Urea Nitrogen 39 mg/dL (9-23); Calcium 8.5 mg/dL (8.7-10.4); Chloride 107 mmol/L (98-107); Sodium 145 mmol/L (136-145)
--- NOTE | 2025-07-13 08:31 | DVHPN2 ---
Progress Note Date Seen: Jul 13, 2025 Resident Creating Document: BHAVIN SHARMA RESDIENT Medical Necessity Reason Pt with a Central, PICC or Fol: No Subjective Review of Systems Patient seen and examined at the bedside. Patient is feeling better since admission and does not report any active complaint. Objective vital signs Vital Sign Date Time Temp Pulse Resp B/P (MAP) Pulse Ox O2 Delivery O2 Flow Rate FiO2 07/13/25 05:00 98.9 66 17 137/65 (89) 96 98.9 07/12/25 20:00 Room Air* 0 21 Total Intake and Output 07/12/25 07/12/25 07/13/25 15:00 23:00 07:00 Intake Total 1140 ml 920 ml Output Total 200 ml Balance 940 ml 920 ml medications Current Medications Medications Dose Ordered Sig/Kelsi Route Start Time Stop Time Status Last Admin Dose Admin Aspirin 81 mg DAILY PO 07/09/25 10:00 07/12/25 09:38 81 MG Valsartan 80 mg DAILY PO 07/09/25 10:00 07/12/25 09:38 80 MG Levothyroxine Sodium 75 mcg QAM@0600 PO 07/09/25 06:00 07/13/25 06:03 75 MCG Ondansetron HCl 4 mg Q4HP PRN IV 07/08/25 21:30 Acetaminophen 650 mg Q6HP PRN PO 07/08/25 21:30 Enoxaparin Sodium 40 mg DAILY SC 07/08/25 21:30 07/12/25 09:37 40 MG Hydralazine HCl 10 mg Q6HP PRN IV 07/09/25 18:00 07/10/25 06:27 10 MG Patient Own Medication 12 mg BID PO 07/10/25 22:00 Cancel Donepezil HCl 10 mg HS PO 07/10/25 22:00 07/12/25 23:06 10 MG Patient Own Medication 1 BID PO 07/10/25 22:00 07/12/25 23:06 1 Primidone 25 mg HS PO 07/12/25 22:00 Examination General Appearance: Alert, Oriented X3, Cooperative, No acute distress HEENT: Atraumatic, PERRLA, EOMI, dry mucous membranes Respiratory: Clear to auscultation, Normal air movement Cardiovascular: Regular rate, Normal S1, Normal S2, No murmurs, no chest wall tenderness Abdominal: Normal bowel sounds, Soft, No tenderness, No hepatospenomegaly, No masses Extremities: No clubbing, No cyanosis, No edema, Normal pulses, No tenderness/swelling Skin: Decreased skin turgor Neuro: Normal gait, Normal speech, Strength at 5/5 X4 ext, Normal tone, Sensation intact, Cranial nerves 3-12 NL, Reflexes 2+ Psych/Mental Status: Mental status NL, Mood NL laboratory and microbiology Laboratory Tests 07/13/25 04:29 Test 07/13/25 04:29 Range/Units Serum Glucose 103 74-106 mg/dL Microbiology Date/Time Source Procedure Growth Status 07/08/25 22:45 Blood Blood Culture - Preliminary NO GROWTH AFTER 72 HOURS OF INCUBATION. Resulted Labs and/or images reviewed: Labs reviewed by me, Image(s) reviewed by me Problem List/Assessment/Plan Problem List/Assessment/Plan This is an 80-year-old lady with past medical history of dementia, Parkinson disease, hypertension, hypothyroidism, CKD (3 B), brought in to the hospital due to generalized weakness and decreased oral intake. BAKARI on CKD (possibly 3B, per family report, baseline record not available), hemodynamic mediated etiology Hypovolemia Mild anemia Dementia and Parkinson disease Hyperphosphatemia Hypertension Hypothyroidism Non ST-elevation [place] Degenerative spine disease Plan/recommendation: (Dr. Duke) * Kidney function is improving, DC IV fluid * Continue valsartan 80 mg daily * Strict I&Os * Avoid nephrotoxic medication * We will follow up with the patient Thank you for giving us the opportunity to take care of your patient. Please call back if you have any question/concerns. Plan discussed with: Patient, Other (RN) My Orders My Orders Orders - BHAVIN SHARMA Procedure Category Date Status Time Kidney US 07/12/25 Resulted 09:53 Urine Sodium LAB 07/12/25 Logged 09:53 Urine Creatinine LAB 07/12/25 Logged 09:53 Urine LAB 07/12/25 Logged Protein/Creatinine Strict I & O NELSON 07/12/25 In Process 09:53 Dietary Evaluation Review Comments: Cardiac diet with Ensure High Protein 240ml PO BID Monitor PO intake to meet 75% of her needs Expected Outcomes/Goals: Improved nutrition related lab values BHAVIN SHARMA Jul 13, 2025 08:31 ALEXANDREA DUKE MD Jul 13, 2025 16:51
--- NOTE | 2025-07-13 09:10 | DVHPN2 ---
Reviewed: Care Plan, H&P, Labs, Medications, Previous Orders, Radiology Changes from previous H/P or p: No Changes Eyes: No Pain, No Vision change, No Conjunctivae inflammation, No Eyelid inflammation, No Other, No Redness ENT: No Ear pain, No Ear discharge, No Nose pain, No Nose discharge, No Nose congestion, No Mouth pain, No Mouth swelling, No Throat pain, No Throat swelling, No Other Cardiovascular: No Chest Pain, No Palpitations, No Orthopnea, No Paroxysmal Noc. Dyspnea, No Edema, No Lt Headedness, No Other Respiratory: No Cough, No Dry, No Shortness of breath, No SOB with excertion, No Wheezing, No Hemoptysis, No Pleuritic Pain, No Sputum, No Other Gastrointestinal: No Nausea, No Vomiting, No Abdominal Pain, No Diarrhea, No Constipation, No Melena, No Hematochezia, No Other Genitourinary: No Dysuria, No Frequency, No Incontinence, No Hematuria, No Retention, No Other Musculoskeletal: No other, No neck pain, No shoulder pain, No arm pain, No back pain, No hand pain, No leg pain, No foot pain Skin: No Rash, No Lesions, No Jaundice, No Bruising, No Other Objective Vitals Vital Signs Date Time Temp Pulse Resp B/P (MAP) Pulse Ox O2 Delivery O2 Flow Rate FiO2 07/13/25 08:31 Room Air* 0 21 07/13/25 05:00 98.9 66 17 137/65 (89) 96 98.9 Intake/Output Intake and Output 07/13/25 07:00 Intake Total 2060 ml Output Total 200 ml Balance 1860 ml Intake Oral 1060 ml IV Total 1000 ml Output Urine Total 200 ml # Voids 2 Medications Current Medications Medications Dose Ordered Sig/Kelsi Route Start Time Stop Time Status Last Admin Dose Admin Aspirin 81 mg DAILY PO 07/09/25 10:00 07/12/25 09:38 81 MG Valsartan 80 mg DAILY PO 07/09/25 10:00 07/12/25 09:38 80 MG Levothyroxine Sodium 75 mcg QAM@0600 PO 07/09/25 06:00 07/13/25 06:03 75 MCG Ondansetron HCl 4 mg Q4HP PRN IV 07/08/25 21:30 Acetaminophen 650 mg Q6HP PRN PO 07/08/25 21:30 Enoxaparin Sodium 40 mg DAILY SC 07/08/25 21:30 07/12/25 09:37 40 MG Hydralazine HCl 10 mg Q6HP PRN IV 07/09/25 18:00 07/10/25 06:27 10 MG Patient Own Medication 12 mg BID PO 07/10/25 22:00 Cancel Donepezil HCl 10 mg HS PO 07/10/25 22:00 07/12/25 23:06 10 MG Patient Own Medication 1 BID PO 07/10/25 22:00 07/12/25 23:06 1 Primidone 25 mg HS PO 07/12/25 22:00 Laboratory Results Laboratory Tests 07/13/25 04:29 Chemistry Test 07/13/25 04:29 Albumin 3.6 g/dL (3.2-4.8) Calcium Level 8.5 mg/dL (8.7-10.4) L Total Protein 6.1 g/dL (5.7-8.2) LFT Test 07/13/25 04:29 Alanine Aminotransferase (ALT) 28 U/L (7-40) Alkaline Phosphatase 68 U/L (46-116) Aspartate Amino Transferase (AST) 28 U/L (13-40) Total Bilirubin 0.4 mg/dL (0.2-1.0) Urinalysis Test 07/08/25 14:10 Urine Color Yellow (Yellow) Urine Clarity Clear (Clear) Urine pH 5.0 (5.0-9.0) Urine Specific [place] 1.021 (1.001-1.035) Urine Protein 1+ (Negative) H Urine Ketones Negative (Negative) Urine Blood Negative /uL (Negative) Urine Nitrite Negative (Negative) Urine Bilirubin Negative (Negative) Urine Urobilinogen Normal mg/dL (Negative) Urine Leukocyte Esterase Negative /uL (Negative) Urine RBC 1 /hpf (0 - 4) Urine Microscopic WBC < 1 /HPF (0-5) Urine Squamous Epithelial Cells None seen /hpf (<5) Urine Bacteria None seen /hpf (None Seen) Urine Glucose Normal mg/dL (Normal) Microbiology Microbiology Date/Time Source Procedure Growth Status 07/08/25 22:45 Blood Blood Culture - Preliminary NO GROWTH AFTER 72 HOURS OF INCUBATION. Resulted Labs and/or images reviewed: Labs reviewed by me, Image(s) reviewed by me Assessment/Plan Assessment/Plan Acute metabolic encephalopathy rule out sepsis Cognitive dysfunction possibly medication induced Polypharmacy Tachybrady syndrome, cardiology consult by Dr. Louis appreciated, Dr. Peters planning for permanent pacemaker implantation on 07/14/2025; echocardiogram 55 % ejection fraction BAKARI versus VMN: Consult for Nephrology Dr. Roy appreciated, stopped hydrochlorothiazide, to continue valsartan Elevated troponin 72, Non STEMI type 2 , consult for Cardiology Dr. Peters appreciated Hypertension Parkinson's disease ; neurology consult by Dr. Gomez appreciated recommended to continue AUSTEDO 12 mg p.o. b.i.d. reduce primidone to 50 mg p.o. HS Dementia:continue Aricept 10 mg p.o.daily Hypothyroidism: Continue Synthroid 75 mcg a day Bowel incontinence: MRI LS spine Multilevel disc degeneration. Multilevel spinal canal stenosis, most pronounced and moderate at L4-L5. Multilevel subarticular zone stenosis, most pronounced and severe at L4-L5 with bilateral descending L5 nerve root compression. Multilevel foraminal stenosis, most pronounced and mild at L4-L5. Consult for Dr. Steele Hypertension continue valsartan 80 mg p.o. daily Patient was on trazodone for depression recently discontinued Patient is DNR per patient's son José Luis who is at the bedside General Condition stable Rosa test negative Rapid flu test negative Blood cultures neg Physical Therapy ordered Time taken 50 minutes Advanced care planning time 20 minutes Discussed diagnosis management and plan of care with the patient's daughter Jade at bedside Plan discussed with: Patient Date of Service: Jul 13, 2025 Billing Provider: AMITA HARMON MD Common Visit Codes: [id number] INP/OBS CARE(HIGH) AMITA HARMON MD Jul 13, 2025 09:10
--- NOTE | 2025-07-13 10:39 | DVHPN2 ---
Progress Note - Dictate Date Seen: Jul 13, 2025 Medical Necessity Reason Pt with a Central, PICC or Fol: No Subjective Ms. Estrada is an 80 year old female right-handed female with a history of hypertension, thyroidism, femur fracture, she was brought to the [facility] on 07/08/2025 with a chief complaint of general weakness, gait disturbance, falls, I have seen and examined the patient, talked to her nurse, and the daughter. She is doing fine, the tremors look better today, grimaced is less intense and frequent According to her home medication bottles, she is on Aricept 10 mg daily, Austedo 12 mg b.i.d.. primidone 100 mg HS Urinalysis, 07/08/2025: WBC: One, urine leukocyte esterase: Negative WBC/HB/PLT/MCV, 07/09/2025: 6.1//174/86.6 BUN/CR, 07/09/2025: 22/1.06 GFR, 07/09/2025: 53 TBI/AST/ALT/AP, 07/09/2025: 0.3/151/55/78 TG/HDL/LDL/HDL, 07/10/2025: 127/227/154/47 TSH, 07/08/2025: 2.3 CT head, 07/08/2025: No acute intracranial findings vital signs Vital Sign Date Time Temp Pulse Resp B/P (MAP) Pulse Ox O2 Delivery O2 Flow Rate FiO2 07/13/25 10:14 145/70 07/13/25 09:30 98.4 66 17 98 98.4 07/13/25 08:31 Room Air* 0 21 Total Intake and Output 07/12/25 07/12/25 07/13/25 15:00 23:00 07:00 Intake Total 1140 ml 920 ml Output Total 200 ml Balance 940 ml 920 ml medications Current Medications Medications Dose Ordered Sig/Kelsi Route Start Time Stop Time Status Last Admin Dose Admin Aspirin 81 mg DAILY PO 07/09/25 10:00 07/12/25 09:38 81 MG Valsartan 80 mg DAILY PO 07/09/25 10:00 07/13/25 10:14 80 MG Levothyroxine Sodium 75 mcg QAM@0600 PO 07/09/25 06:00 07/13/25 06:03 75 MCG Ondansetron HCl 4 mg Q4HP PRN IV 07/08/25 21:30 Acetaminophen 650 mg Q6HP PRN PO 07/08/25 21:30 Enoxaparin Sodium 40 mg DAILY SC 07/08/25 21:30 07/12/25 09:37 40 MG Hydralazine HCl 10 mg Q6HP PRN IV 07/09/25 18:00 07/10/25 06:27 10 MG Patient Own Medication 12 mg BID PO 07/10/25 22:00 Cancel Donepezil HCl 10 mg HS PO 07/10/25 22:00 07/12/25 23:06 10 MG Patient Own Medication 1 BID PO 07/10/25 22:00 07/13/25 10:13 1 Primidone 25 mg HS PO 07/12/25 22:00 objective General: the patient is well developed and nourished. No acute distress. MENTAL STATUS: Awake and alert. Oriented to person, place, SPEECH, LANGUAGE, HIGHER CORTICAL FUNCTION: no aphasia or dysathria. CRANIAL NERVES: Pupils are equal, round and reactive. EOMs full and conjugate. No nystagmus. Facial sensation intact in all three divisions bilaterally. Mandibular strength intact. Facial muscles symmetrical and strength intact. Tongue midline. No fasciculations or atrophy. SENSATION: Sensation to touch and pinprick is normal. MOTOR: Normal tone in the upper and lower extremity. Normal muscle bulk. No fasciculations. Muscle strength of the major groups in the extremities is 5/5. Shaking in the both upper extremities, right-sided more affected, per my observation, better with the arms are resting. Grimacing movement noticed REFLEXES: Deep tendon reflexes normal and symmetrical. No pathological reflexes. CEREBELLAR/COORDINATION: Finger to nose showed very mild intentional tremors in both hands GAIT/STATION: deferred. laboratory and microbiology Laboratory Tests 07/13/25 04:29 Test 07/13/25 04:29 Range/Units Serum Glucose 103 74-106 mg/dL Problem List Tremors in the upper extremities, remission in the face, ? chorea Essential tremors Parkinson's disease, less likely Dementia Assessment/Plan Monitoring Supportive treatment Telemetry Continue Austedo 12 mg b.i.d. Aricept 10 mg q.h.s. Physical therapy More recommendation per clinical course This medical document was created using an electronic medical record system with [employer] dictation system. Although this document has been carefully reviewed, there may still be some phonetic and typographical errors. These areas are purely typographical due to imperfections of the software programs, and do not reflect any compromise in the patient's medical care. Prognosis poor Dietary Evaluation Review Comments: Cardiac diet with Ensure High Protein 240ml PO BID Monitor PO intake to meet 75% of her needs Expected Outcomes/Goals: Improved nutrition related lab values Plan discussed with: Daughter, Other Total Time (mins): 35 VANESA KAMARA MD Jul 13, 2025 10:39
--- NOTE | 2025-07-13 15:29 | DVHPN2 ---
Progress Note - Dictate Date Seen: Jul 13, 2025 Medical Necessity Reason Pt with a Central, PICC or Fol: No Subjective PT WITH ORG HEART DISEASE LABILE BP NOW WITH TACHYBRADY EPISODES HX OF HTN PARKINSON /DEMENTIA CKD / SINGLE KIDNEY MULTIPLE ORTHO PROCEDURES HYPOTHYROIDISM vital signs Vital Sign Date Time Temp Pulse Resp B/P (MAP) Pulse Ox O2 Delivery O2 Flow Rate FiO2 07/13/25 12:40 98.0 64 18 144/62 (89) 95 98.0 07/13/25 08:31 Room Air* 0 21 Total Intake and Output 07/12/25 07/12/25 07/13/25 15:00 23:00 07:00 Intake Total 1140 ml 920 ml Output Total 200 ml Balance 940 ml 920 ml medications Current Medications Medications Dose Ordered Sig/Kelsi Route Start Time Stop Time Status Last Admin Dose Admin Aspirin 81 mg DAILY PO 07/09/25 10:00 07/12/25 09:38 81 MG Valsartan 80 mg DAILY PO 07/09/25 10:00 07/13/25 10:14 80 MG Levothyroxine Sodium 75 mcg QAM@0600 PO 07/09/25 06:00 07/13/25 06:03 75 MCG Ondansetron HCl 4 mg Q4HP PRN IV 07/08/25 21:30 Acetaminophen 650 mg Q6HP PRN PO 07/08/25 21:30 Enoxaparin Sodium 40 mg DAILY SC 07/08/25 21:30 07/12/25 09:37 40 MG Hydralazine HCl 10 mg Q6HP PRN IV 07/09/25 18:00 07/10/25 06:27 10 MG Patient Own Medication 12 mg BID PO 07/10/25 22:00 Cancel Donepezil HCl 10 mg HS PO 07/10/25 22:00 07/12/25 23:06 10 MG Patient Own Medication 1 BID PO 07/10/25 22:00 07/13/25 10:13 1 Primidone 25 mg HS PO 07/12/25 22:00 laboratory and microbiology Laboratory Tests 07/13/25 04:29 Test 07/13/25 04:29 Range/Units Serum Glucose 103 74-106 mg/dL Problem List ORG HEART DISEASE LABILE BP NOW WITH TACHYBRADY EPISODES HX OF HTN PARKINSON /DEMENTIA CKD / SINGLE KIDNEY MULTIPLE ORTHO PROCEDURES HYPOTHYROIDISM ANEMIA Assessment/Plan CONSIDER PPI IF FAMILY AND PT ARE AGREEABLE FAMILY DEFERRING PPI NOW FAMILY AGREEABLE TO PPI BECAUSE OF EPISODE OF BRADYCARDIA AGAIN PT'S FAMILY STILL INDECISIVE ABOUT PPI RECOMMEND 2nd OPINION/ EF WILL SIGN OFF Dietary Evaluation Review Comments: Cardiac diet with Ensure High Protein 240ml PO BID Monitor PO intake to meet 75% of her needs Expected Outcomes/Goals: Improved nutrition related lab values Plan discussed with: Patient JACQUE MARLOW MD Jul 13, 2025 15:29
[2025-07-14] VITALS (7 sets, daily range): BP systolic 141–175; BP diastolic 65–79; PULSE 56–71; RESP 17–18; TEMP 97.5–98.1; O2SAT 96–99
[2025-07-14 05:33] LABS: Hematocrit 33.0 % (36.0-46.0); Hemoglobin 11.0 g/dL (12.2-16.2); Mean Corpuscular Hemoglobin 29.2 pg (28.0-32.0); Mean Corpuscular Volume 87.6 fL (80.0-100.0); Nucleated Red Blood Cells % 0.1 %
[2025-07-14 05:42] LABS: Alanine Aminotransferase 27 U/L (7-40); Albumin 3.8 g/dL (3.2-4.8); Alkaline Phosphatase 70 U/L (46-116); Anion Gap 12 (5-15); BUN/Creatinine Ratio 30.1 (10.0-20.0); Calcium 8.9 mg/dL (8.7-10.4); Carbon Dioxide 26 mmol/L (20-31); Chloride 106 mmol/L (98-107); Glucose 99 mg/dL (74-106); Potassium 4.5 mmol/L (3.5-5.1); Sodium 144 mmol/L (136-145); Total Protein 6.5 g/dL (5.7-8.2)
[2025-07-14 05:43] LABS: Bilirubin, Total 0.3 mg/dL (0.2-1.0)
[2025-07-14 05:46] LABS: INR 0.99 (0.9-1.15); Prothrombin Time 10.5 sec (9.3-11.8)
[2025-07-14 05:59] LABS: Blood Urea Nitrogen 40 mg/dL (9-23)
--- NOTE | 2025-07-14 07:58 | DVHPN2 ---
Progress Note - Dictate Date Seen: Jul 14, 2025 Medical Necessity Reason Pt with a Central, PICC or Fol: No Subjective PT WITH ORG HEART DISEASE LABILE BP NOW WITH TACHYBRADY EPISODES HX OF HTN PARKINSON /DEMENTIA CKD / SINGLE KIDNEY MULTIPLE ORTHO PROCEDURES HYPOTHYROIDISM vital signs Vital Sign Date Time Temp Pulse Resp B/P (MAP) Pulse Ox O2 Delivery O2 Flow Rate FiO2 07/14/25 05:00 97.5 60 18 158/79 (105) 97 97.5 07/13/25 20:00 Room Air* 0 21 Total Intake and Output 07/13/25 07/13/25 07/14/25 15:00 23:00 07:00 Intake Total 480 ml 350 ml Output Total 600 ml Balance -120 ml 350 ml medications Current Medications Medications Dose Ordered Sig/Kelsi Route Start Time Stop Time Status Last Admin Dose Admin Aspirin 81 mg DAILY PO 07/09/25 10:00 07/12/25 09:38 81 MG Valsartan 80 mg DAILY PO 07/09/25 10:00 07/13/25 10:14 80 MG Levothyroxine Sodium 75 mcg QAM@0600 PO 07/09/25 06:00 07/13/25 06:03 75 MCG Ondansetron HCl 4 mg Q4HP PRN IV 07/08/25 21:30 Acetaminophen 650 mg Q6HP PRN PO 07/08/25 21:30 Enoxaparin Sodium 40 mg DAILY SC 07/08/25 21:30 07/12/25 09:37 40 MG Hydralazine HCl 10 mg Q6HP PRN IV 07/09/25 18:00 07/10/25 06:27 10 MG Patient Own Medication 12 mg BID PO 07/10/25 22:00 Cancel Donepezil HCl 10 mg HS PO 07/10/25 22:00 07/13/25 21:51 10 MG Patient Own Medication 1 BID PO 07/10/25 22:00 07/13/25 21:53 1 Primidone 25 mg HS PO 07/12/25 22:00 laboratory and microbiology Laboratory Tests 07/14/25 04:30 Test 07/14/25 04:30 Range/Units Serum Glucose 99 74-106 mg/dL Problem List ORG HEART DISEASE LABILE BP NOW WITH TACHYBRADY EPISODES HX OF HTN PARKINSON /DEMENTIA CKD / SINGLE KIDNEY MULTIPLE ORTHO PROCEDURES HYPOTHYROIDISM ANEMIA Assessment/Plan CONSIDER PPI IF FAMILY AND PT ARE AGREEABLE FAMILY DEFERRING PPI NOW FAMILY AGREEABLE TO PPI BECAUSE OF EPISODE OF BRADYCARDIA AGAIN PT'S FAMILY STILL INDECISIVE ABOUT PPI RECOMMEND 2nd OPINION/ EF WILL SIGN OFF NOW FAMILY HAVE CHANGED THEIR MIND WILL PROCEED WITH PPI LEAD LESS Dietary Evaluation Review Comments: Cardiac diet with Ensure High Protein 240ml PO BID Monitor PO intake to meet 75% of her needs Expected Outcomes/Goals: Improved nutrition related lab values Plan discussed with: Patient JACQUE MARLOW MD Jul 14, 2025 07:58
--- NOTE | 2025-07-14 08:00 | DVHPN2 ---
Reviewed: Care Plan, H&P, Labs, Medications, Previous Orders, Radiology Changes from previous H/P or p: No Changes Eyes: No Pain, No Vision change, No Conjunctivae inflammation, No Eyelid inflammation, No Other, No Redness ENT: No Ear pain, No Ear discharge, No Nose pain, No Nose discharge, No Nose congestion, No Mouth pain, No Mouth swelling, No Throat pain, No Throat swelling, No Other Cardiovascular: No Chest Pain, No Palpitations, No Orthopnea, No Paroxysmal Noc. Dyspnea, No Edema, No Lt Headedness, No Other Respiratory: No Cough, No Dry, No Shortness of breath, No SOB with excertion, No Wheezing, No Hemoptysis, No Pleuritic Pain, No Sputum, No Other Gastrointestinal: No Nausea, No Vomiting, No Abdominal Pain, No Diarrhea, No Constipation, No Melena, No Hematochezia, No Other Genitourinary: No Dysuria, No Frequency, No Incontinence, No Hematuria, No Retention, No Other Musculoskeletal: No other, No neck pain, No shoulder pain, No arm pain, No back pain, No hand pain, No leg pain, No foot pain Skin: No Rash, No Lesions, No Jaundice, No Bruising, No Other Objective Vitals Vital Signs Date Time Temp Pulse Resp B/P (MAP) Pulse Ox O2 Delivery O2 Flow Rate FiO2 07/14/25 05:00 97.5 60 18 158/79 (105) 97 97.5 07/13/25 20:00 Room Air* 0 21 Intake/Output Intake and Output 07/14/25 07:00 Intake Total 830 ml Output Total 600 ml Balance 230 ml Intake Oral 830 ml Output Urine Total 600 ml # Voids 1 Medications Current Medications Medications Dose Ordered Sig/Kelsi Route Start Time Stop Time Status Last Admin Dose Admin Aspirin 81 mg DAILY PO 07/09/25 10:00 07/12/25 09:38 81 MG Valsartan 80 mg DAILY PO 07/09/25 10:00 07/13/25 10:14 80 MG Levothyroxine Sodium 75 mcg QAM@0600 PO 07/09/25 06:00 07/13/25 06:03 75 MCG Ondansetron HCl 4 mg Q4HP PRN IV 07/08/25 21:30 Acetaminophen 650 mg Q6HP PRN PO 07/08/25 21:30 Enoxaparin Sodium 40 mg DAILY SC 07/08/25 21:30 07/12/25 09:37 40 MG Hydralazine HCl 10 mg Q6HP PRN IV 07/09/25 18:00 07/10/25 06:27 10 MG Patient Own Medication 12 mg BID PO 07/10/25 22:00 Cancel Donepezil HCl 10 mg HS PO 07/10/25 22:00 07/13/25 21:51 10 MG Patient Own Medication 1 BID PO 07/10/25 22:00 07/13/25 21:53 1 Primidone 25 mg HS PO 07/12/25 22:00 Laboratory Results Laboratory Tests 07/14/25 04:30 Chemistry Test 07/14/25 04:30 Albumin 3.8 g/dL (3.2-4.8) Calcium Level 8.9 mg/dL (8.7-10.4) Total Protein 6.5 g/dL (5.7-8.2) Coagulation Test 07/14/25 04:30 Prothrombin Time 10.5 sec (9.3-11.8) Prothrombin Time INR 0.99 (0.9-1.15) LFT Test 07/14/25 04:30 Alanine Aminotransferase (ALT) 27 U/L (7-40) Alkaline Phosphatase 70 U/L (46-116) Aspartate Amino Transferase (AST) 24 U/L (13-40) Total Bilirubin 0.3 mg/dL (0.2-1.0) Urinalysis Test 07/08/25 14:10 Urine Color Yellow (Yellow) Urine Clarity Clear (Clear) Urine pH 5.0 (5.0-9.0) Urine Specific [place] 1.021 (1.001-1.035) Urine Protein 1+ (Negative) H Urine Ketones Negative (Negative) Urine Blood Negative /uL (Negative) Urine Nitrite Negative (Negative) Urine Bilirubin Negative (Negative) Urine Urobilinogen Normal mg/dL (Negative) Urine Leukocyte Esterase Negative /uL (Negative) Urine RBC 1 /hpf (0 - 4) Urine Microscopic WBC < 1 /HPF (0-5) Urine Squamous Epithelial Cells None seen /hpf (<5) Urine Bacteria None seen /hpf (None Seen) Urine Glucose Normal mg/dL (Normal) Microbiology Microbiology Date/Time Source Procedure Growth Status 07/08/25 22:45 Blood Blood Culture - Final NO GROWTH AFTER 5 DAYS OF INCUBATION. Complete Labs and/or images reviewed: Labs reviewed by me, Image(s) reviewed by me Assessment/Plan Assessment/Plan Acute metabolic encephalopathy rule out sepsis Cognitive dysfunction possibly medication induced Polypharmacy Tachybrady syndrome, cardiology consult by Dr. Louis appreciated, Dr. Peters planning for permanent pacemaker implantation on 07/15/2025; echocardiogram 55 % ejection fraction BAKARI versus VMN: Consult for Nephrology Dr. Roy appreciated, stopped hydrochlorothiazide, to continue valsartan Elevated troponin 72, Non STEMI type 2 , consult for Cardiology Dr. Peters appreciated Hypertension Parkinson's disease ; neurology consult by Dr. Gomez appreciated recommended to continue AUSTEDO 12 mg p.o. b.i.d. reduce primidone to 50 mg p.o. HS Dementia:continue Aricept 10 mg p.o.daily Hypothyroidism: Continue Synthroid 75 mcg a day Bowel incontinence: MRI LS spine Multilevel disc degeneration. Multilevel spinal canal stenosis, most pronounced and moderate at L4-L5. Multilevel subarticular zone stenosis, most pronounced and severe at L4-L5 with bilateral descending L5 nerve root compression. Multilevel foraminal stenosis, most pronounced and mild at L4-L5. Consult for Dr. Steele pending pending Hypertension continue valsartan 80 mg p.o. daily Patient was on trazodone for depression recently discontinued Patient is DNR per patient's son José Luis who is at the bedside General Condition stable Rosa test negative Rapid flu test negative Blood cultures neg Physical Therapy ordered Time taken 50 minutes Advanced care planning time 20 minutes Discussed diagnosis management and plan of care with the patient's daughter Jade at bedside Plan discussed with: Patient My Orders Orders - AMITA HARMON MD Procedure Category Date Status Time * Orthopedic Consult CONS 07/13/25 Transmitted 09:10 Cardiac DIET 07/14/25 Transmitted Diet-2gna,Lofat,Lochol Breakfast Date of Service: Jul 14, 2025 Billing Provider: AMITA HARMON MD Common Visit Codes: [id number] INP/OBS CARE(HIGH) AMITA HARMON MD Jul 14, 2025 08:00
--- NOTE | 2025-07-14 08:24 | DVHINCON2 ---
ESTEFANI HENRY MD 07/14/25 0824: Consultation - Spinal Surgery Allergies and medications Allergies: Coded Allergies: NO KNOWN ALLERGIES (Unverified , 07/08/25) Home Meds Reported Medications Primidone (Primidone) 125 Mg Tab, 100 MG PO DAILY, TAB 07/09/25 Donepezil Hydrochloride (DONEPEZIL HCL) 10 Mg Tab, 1 TAB PO DAILY, #90 TAB 1 Refill 07/09/25 Aspirin (Aspir-81) 81 Mg Tab, 1 TAB PO DAILY, #30 TAB 5 Refills 07/09/25 Levothyroxine Sodium (SYNTHROID TABLET) 100 Mcg Tb, 75 TAB PO DAILY, #90 TAB 3 Refills 07/09/25 Deutetrabenazine (Austedo) 12 Mg Tab, 12 MG PO DAILY, TAB 07/09/25 Valsartan-Hydrochlorothiazide (Diovan Hct) 80 /12.5 Tab, 1 TAB PO DAILY, #30 TAB 5 Refills 07/09/25 Examination Vital signs Vital Signs Date Time Temp Pulse Resp B/P (MAP) Pulse Ox O2 Delivery O2 Flow Rate FiO2 07/14/25 05:00 97.5 60 18 158/79 (105) 97 97.5 07/13/25 20:00 Room Air* 0 21 Laboratory [place] [id number] Ph: [phone] DIAGNOSTIC IMAGING Diagnostic Imaging Report : [id number] Signed PATIENT: DOLORES RODRÍGUEZCT: [id number] UNIT: [id number] : 1945 LOC: [facility] ROOM / BED: [facility] / A AGE / SEX: 80 / F ADM STATUS: ADM IN SERVICE 0738 ORDERING PHYSICIAN: AMITA HARMON MD PROCEDURE(s): MSL - LUMBAR SPINE WO CONTRAST REASON: BOWEL INCONTINENCE RULE OUT CAUDA EQUINA SYNDROME ORDER NUMBER(s): [id number], ACCESSION NUMBER(s): [id number] 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 FINDINGS: Multilevel disc degeneration. Alignment: Grade 1 retrolisthesis of L1 on L2. Grade 1 retrolisthesis of L2 on L3. Grade 1 anterolisthesis of L4 on L5. Vertebrae: Vertebral body height is well maintained without evidence of a recent compression fracture. Conus: Conus medullaris terminates at the L2 level. T12-L1: Disc desiccation and 0.9 mm disc bulge. No spinal canal or neural foraminal stenosis. Facet arthrosis. L1-2: Grade 1 retrolisthesis of L1 on L2 by 3.1 mm. Disc desiccation and disc bulge. No spinal canal or neural foraminal stenosis. Facet arthrosis. L2-3: Grade 1 retrolisthesis of L2 on L3 by 3.8 mm. Disc desiccation and 4.9 mm disc bulge. Mild bilateral subarticular zone stenosis. Mild bilateral foraminal stenosis. Facet arthrosis. L3-4: Disc desiccation and 3.65 mm disc bulge. Mild spinal canal stenosis. Mild bilateral subarticular zone stenosis. Mild bilateral foraminal stenosis. Facet arthrosis. L4-5: Grade 1 anterolisthesis of L4 on L5 by 3.1 mm. Disc desiccation and disc bulge. Moderate spinal canal stenosis. Severe bilateral subarticular zone stenosis with bilateral descending L5 nerve root compression. Mild bilateral foraminal stenosis. Facet arthrosis. L5-S1: Disc desiccation and disc bulge. No spinal canal stenosis. Mild bilateral foraminal stenosis. Facet arthrosis. IMPRESSION: 1. Multilevel disc degeneration. Multilevel spinal canal stenosis, most pronounced and moderate at L4-L5. Multilevel subarticular zone stenosis, most pronounced and severe at L4-L5 with bilateral descending L5 nerve root compression. Multilevel foraminal stenosis, most pronounced and mild at L4-L5. ATED BY: WISAM HODGE MD DICTATED DATE/TIME: 07/12/25 144 SIGNED BY: WISAM HODGE MD SIGNED DATE/TIME: 07/12/25 144 CC: Labs Test 07/14/25 04:30 07/12/25 04:28 07/10/25 13:03 07/09/25 09:15 Range/Units White Blood Count 5.9 4.4-10.8 10^3/uL Red Blood Count 3.76 L 4.0-5.20 10^6/uL Hemoglobin 11.0 L 12.2-16.2 g/dL Hematocrit 33.0 L 36.0-46.0 % Mean Corpuscular Volume 87.6 80.0-100.0 fL Mean Corpuscular Hemoglobin 29.2 28.0-32.0 pg Mean Corpuscular Hemoglobin Concent 33.3 32.0-36.0 g/dL Red Cell Distribution Width 13.8 11.8-14.3 % Platelet Count 194 140-450 10^3/uL Mean Platelet Volume 10.2 6.9-10.8 fL Neutrophils (%) (Auto) 53.1 37.0-80.0 % Lymphocytes (%) (Auto) 37.1 10.0-50.0 % Monocytes (%) (Auto) 5.1 0.0-12.0 % Eosinophils (%) (Auto) 4.4 0.0-7.0 % Basophils (%) (Auto) 0.3 0.0-2.0 % Neutrophils # (Auto) 3.1 1.6-8.6 10 ^3/uL Lymphocytes # (Auto) 2.2 0.4-5.4 10 ^3/uL Monocytes # (Auto) 0.3 0-1.3 10 ^3/uL Eosinophils # (Auto) 0.3 0-0.8 10 ^3/uL Basophils # (Auto) 0 0-0.2 10 ^3/uL Nucleated Red Blood Cells 0.1 % Prothrombin Time 10.5 9.3-11.8 sec Prothrombin Time INR 0.99 0.9-1.15 Sodium Level 144 136-145 mmol/L Potassium Level 4.5 3.5-5.1 mmol/L Chloride Level 106 98-107 mmol/L Carbon Dioxide Level 26 20-31 mmol/L Anion Gap 12 5-15 Blood Urea Nitrogen 40 H 9-23 mg/dL Creatinine 1.33 H 0.550-1.02 mg/dL Glomerular Filtration Rate Calc 40 >90 mL/min BUN/Creatinine Ratio 30.1 H 10.0-20.0 Serum Glucose 99 74-106 mg/dL Calcium Level 8.9 8.7-10.4 mg/dL Total Bilirubin 0.3 0.2-1.0 mg/dL Aspartate Amino Transferase (AST) 24 13-40 U/L Alanine Aminotransferase (ALT) 27 7-40 U/L Alkaline Phosphatase 70 46-116 U/L Total Protein 6.5 5.7-8.2 g/dL Albumin 3.8 3.2-4.8 g/dL Phosphorus Level 5.3 H 2.4-5.1 mg/dL Vitamin D 25-Hydroxy 79.4 30.0-100 ng/mL Parathyroid Hormone (Intact) 63.0 18.4-80.1 pg/mL B-Type Natriuretic Peptide 43.60 0-100 pg/mL Triglycerides Level 127 < 150 mg/dL Cholesterol Level 227 H < 200 mg/dL LDL Cholesterol 154 H < 100 mg/dL HDL Cholesterol 47 40-59 mg/dL Vitamin B12 Level 285 211-911 pg/mL Folic Acid 5.09 >5.38 ng/mL Thyroid Stimulating Hormone (TSH) 3.09 0.55-4.78 uIU/mL Free Thyroxine (T4) Calculated 1.39 0.89-1.76 ng/dL Influenza Type A Antigen Negative Negative Influenza Type B Antigen Negative Negative SARS-CoV-2 Antigen (Rapid) Negative NEGATIVE Test 07/08/25 22:35 07/08/25 16:08 07/08/25 14:10 Range/Units Lactic Acid Level 0.7 0.4-2.0 mmol/L Magnesium Level 1.7 1.6-2.6 mg/dL Direct Bilirubin < 0.1 <0.3 mg/dL Ammonia < 10 L 11-32 umol/L Troponin I High Sensitivity 72 *H </=34 ng/L Urine Color Yellow Yellow Urine Clarity Clear Clear Urine pH 5.0 5.0-9.0 Urine Specific [place] 1.021 1.001-1.035 Urine Protein 1+ H Negative Urine Ketones Negative Negative Urine Blood Negative Negative /uL Urine Nitrite Negative Negative Urine Bilirubin Negative Negative Urine Urobilinogen Normal Negative mg/dL Urine Leukocyte Esterase Negative Negative /uL Urine RBC 1 0 - 4 /hpf Urine Microscopic WBC < 1 0-5 /HPF Urine Squamous Epithelial Cells None seen <5 /hpf Urine Bacteria None seen None Seen /hpf Urine Glucose Normal Normal mg/dL Microbiology Date/Time Source Procedure Growth Status 07/08/25 22:45 Blood Blood Culture - Final NO GROWTH AFTER 5 DAYS OF INCUBATION. Complete Problem List/Assessment/Plan Problems: (1) Lumbar canal stenosis Assessment and Plan severe lumbar spinal stenosis in the context of multiple medical problems. The medical issues would preclude surgical managemnt as an intitial or even secondary treatment option for this lady JOANN ABEL Rafi [employer] 07/18/251746: Consultation - Spinal Surgery Date Seen: Jul 18, 2025 Referring Physician Referring Physician Attending Doctor: Amita Harmon MD Resident Creating Document: KELSEY CHRISTIAN RESIDENT Reason for Consultation low back pain History of Present Illness History of Present Illness History of Present Illness 80-year-old female with a past medical history of Dementia, Parkinson's disease, hypertension, hypothyroidism has been brought by her son, with chief complaints of patient being increasingly hypersomnolent and generalized weakness. Patient has dementia, unable to recall much, so history was taken from son. According to the son, patient began a new medication for tardive dyskinesia (Austredo) 1 month ago which caused her to have insomnia and since last patient was prescribed trazodone 50 mg for sleep. Since then, she she has been increasingly somnolent so her son decrease the dose to half but patient has been more confused than her baseline and weak. Son reports that the patient used a walker to ambulate in the past, but in the last 2 days she has stopped walking at all and does not get out of bed. He states that he found her on the floor 2 days ago, reporting she might have fallen out of the bed, but does not know if she sustained head injury. Vitals on admission were stable HR 70, RR 14, BP 165/60 mmHg, SpO2 97% in room air. We are admitting the patient for further workup and management. Past Medical/Surgical History Past Medical/Surgical History PMH: As stated above PSH: abdominal hernia surgery, thyroidectomy, hysterectomy, right knee replacem ent, surgery for right femur fracture Family and Social History Family and Social History Family history: Reviewed, noncontributory to the management of this case Social history: Patient denies smoking, drinking alcohol or any other illicit drug abuse Allergies: None PCP: Dr. Gonzalez Neurologist: Dr White Code status: DNR/DNI Review of systems Review of Systems: MSK:Abnormal (LBP) Examination Examination: MSK:Abnormal (LBP lumbar stenosis ) Problem List/Assessment/Plan Problems: (1) Lumbar canal stenosis (2) Generalized weakness Assessment and Plan severe lumbar spinal stenosis in the context of multiple medical problems. The medical issues would preclude surgical managemnt as an intitial or even secondary treatment option for this lady Plan discussed with Plan discussed with: Patient, Other (admitting MD per dr henry) ESTEFANI HENRY MD Jul 14, 2025 08:24 JOANN ABEL NP Jul 18, 2025 17:47
--- NOTE | 2025-07-14 10:44 | DVHPN2 ---
Progress Note - Dictate Date Seen: Jul 14, 2025 Medical Necessity Reason Pt with a Central, PICC or Fol: No Subjective Ms. Estrada is an 80 year old female right-handed female with a history of hypertension, thyroidism, femur fracture, she was brought to the [facility] on 07/08/2025 with a chief complaint of general weakness, gait disturbance, falls, I have seen and examined the patient, talked to her nurse, and the daughter. She is doing fine, the tremors is fine, I did not see grimace today He is awake, oriented times 2-3, good social skills According to her home medication bottles, she is on Aricept 10 mg daily, Austedo 12 mg b.i.d.. primidone 100 mg HS Urinalysis, 07/08/2025: WBC: One, urine leukocyte esterase: Negative WBC/HB/PLT/MCV, 07/09/2025: 6.1/11/174/86.6 BUN/CR, 07/09/2025: 22/1.06 GFR, 07/09/2025: 53 TBI/AST/ALT/AP, 07/09/2025: 0.3/151/55/78 TG/HDL/LDL/HDL, 07/10/2025: 127/227/154/47 TSH, 07/08/2025: 2.3 CT head, 07/08/2025: No acute intracranial findings vital signs Vital Sign Date Time Temp Pulse Resp B/P (MAP) Pulse Ox O2 Delivery O2 Flow Rate FiO2 07/14/25 09:38 167/70 07/14/25 09:17 98.1 56 17 97 98.1 07/14/25 08:20 Room Air* 0 21 Total Intake and Output 07/13/25 07/13/25 07/14/25 15:00 23:00 07:00 Intake Total 480 ml 350 ml Output Total 600 ml Balance -120 ml 350 ml medications Current Medications Medications Dose Ordered Sig/Kelsi Route Start Time Stop Time Status Last Admin Dose Admin Aspirin 81 mg DAILY PO 07/09/25 10:00 07/12/25 09:38 81 MG Valsartan 80 mg DAILY PO 07/09/25 10:00 07/14/25 09:38 80 MG Levothyroxine Sodium 75 mcg QAM@0600 PO 07/09/25 06:00 07/13/25 06:03 75 MCG Ondansetron HCl 4 mg Q4HP PRN IV 07/08/25 21:30 Acetaminophen 650 mg Q6HP PRN PO 07/08/25 21:30 Enoxaparin Sodium 40 mg DAILY SC 07/08/25 21:30 07/12/25 09:37 40 MG Hydralazine HCl 10 mg Q6HP PRN IV 07/09/25 18:00 07/10/25 06:27 10 MG Patient Own Medication 12 mg BID PO 07/10/25 22:00 Cancel Donepezil HCl 10 mg HS PO 07/10/25 22:00 07/13/25 21:51 10 MG Patient Own Medication 1 BID PO 07/10/25 22:00 07/14/25 09:37 1 Primidone 25 mg HS PO 07/12/25 22:00 objective General: the patient is well developed and nourished. No acute distress. MENTAL STATUS: Subjective SPEECH, LANGUAGE, HIGHER CORTICAL FUNCTION: no aphasia or dysathria. CRANIAL NERVES: Pupils are equal, round and reactive. EOMs full and conjugate. No nystagmus. Facial sensation intact in all three divisions bilaterally. Mandibular strength intact. Facial muscles symmetrical and strength intact. Tongue midline. No fasciculations or atrophy. SENSATION: Sensation to touch and pinprick is normal. MOTOR: Normal tone in the upper and lower extremity. Normal muscle bulk. No fasciculations. Muscle strength of the major groups in the extremities is 5/5. Shaking in the both upper extremities, right-sided more affected, per my observation, better with the arms are resting. Grimacing movement noticed REFLEXES: Deep tendon reflexes normal and symmetrical. No pathological reflexes. CEREBELLAR/COORDINATION: Finger to nose showed very mild intentional tremors in both hands GAIT/STATION: deferred. 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 Aricept 10 mg q.h.s. Physical therapy More recommendation per clinical course This medical document was created using an electronic medical record system with [employer] dictation system. Although this document has been carefully reviewed, there may still be some phonetic and typographical errors. These areas are purely typographical due to imperfections of the software programs, and do not reflect any compromise in the patient's medical care. Prognosis poor Dietary Evaluation Review Comments: Cardiac diet with Ensure High Protein 240ml PO BID Monitor PO intake to meet 75% of her needs Expected Outcomes/Goals: Improved nutrition related lab values Plan discussed with: Daughter, Other Total Time (mins): 35 VANESA KAMARA MD Jul 14, 2025 10:44
[2025-07-14] MEDS: LACTULOSE 20Gm/30ML SOLN PO ONE (11:56)
--- NOTE | 2025-07-14 13:30 | DVHPN2 ---
Progress Note Date Seen: Jul 14, 2025 Resident Creating Document: BHAVIN SHARMA RESDIENT Medical Necessity Reason Pt with a Central, PICC or Fol: No Subjective Review of Systems Patient seen and examined at the bedside. Patient is feeling better since admission and does not report any active complaint. Objective vital signs Vital Sign Date Time Temp Pulse Resp B/P (MAP) Pulse Ox O2 Delivery O2 Flow Rate FiO2 07/14/25 12:43 98.0 63 17 148/76 (100) 96 98.0 07/14/25 08:20 Room Air* 0 21 Total Intake and Output 07/13/25 07/13/25 07/14/25 15:00 23:00 07:00 Intake Total 480 ml 350 ml Output Total 600 ml Balance -120 ml 350 ml medications Current Medications Medications Dose Ordered Sig/Kelsi Route Start Time Stop Time Status Last Admin Dose Admin Aspirin 81 mg DAILY PO 07/09/25 10:00 07/12/25 09:38 81 MG Valsartan 80 mg DAILY PO 07/09/25 10:00 07/14/25 09:38 80 MG Levothyroxine Sodium 75 mcg QAM@0600 PO 07/09/25 06:00 07/13/25 06:03 75 MCG Ondansetron HCl 4 mg Q4HP PRN IV 07/08/25 21:30 Acetaminophen 650 mg Q6HP PRN PO 07/08/25 21:30 Enoxaparin Sodium 40 mg DAILY SC 07/08/25 21:30 07/12/25 09:37 40 MG Hydralazine HCl 10 mg Q6HP PRN IV 07/09/25 18:00 07/10/25 06:27 10 MG Patient Own Medication 12 mg BID PO 07/10/25 22:00 Cancel Donepezil HCl 10 mg HS PO 07/10/25 22:00 07/13/25 21:51 10 MG Patient Own Medication 1 BID PO 07/10/25 22:00 07/14/25 09:37 1 Primidone 25 mg HS PO 07/12/25 22:00 Examination General Appearance: Alert, Oriented X3, Cooperative, No acute distress HEENT: Atraumatic, PERRLA, EOMI, dry mucous membranes Respiratory: Clear to auscultation, Normal air movement Cardiovascular: Regular rate, Normal S1, Normal S2, No murmurs, no chest wall tenderness Abdominal: Normal bowel sounds, Soft, No tenderness, No hepatospenomegaly, No masses Extremities: No clubbing, No cyanosis, No edema, Normal pulses, No tenderness/swelling Skin: Decreased skin turgor Neuro: Normal gait, Normal speech, Strength at 5/5 X4 ext, Normal tone, Sensation intact, Cranial nerves 3-12 NL, Reflexes 2+ Psych/Mental Status: Mental status NL, Mood NL laboratory and microbiology Laboratory Tests 07/14/25 04:30 Test 07/14/25 04:30 Range/Units Serum Glucose 99 74-106 mg/dL Microbiology Date/Time Source Procedure Growth Status 07/08/25 22:45 Blood Blood Culture - Final NO GROWTH AFTER 5 DAYS OF INCUBATION. Complete Labs and/or images reviewed: Labs reviewed by me, Image(s) reviewed by me Problem List/Assessment/Plan Problem List/Assessment/Plan This is an 80-year-old lady with past medical history of dementia, Parkinson disease, hypertension, hypothyroidism, CKD (3 B), brought in to the hospital due to generalized weakness and decreased oral intake. BAKARI on CKD (possibly 3B, per family report, baseline record not available), hemodynamic mediated etiology Hypovolemia Mild anemia Dementia and Parkinson disease Hyperphosphatemia Hypertension Hypothyroidism Non ST-elevation [place] Degenerative spine disease Plan/recommendation: (Dr. Duke) * Kidney function has stabilized * IV 0.45 NS at 60 mL/hour, 1 L * Started amlodipine 5 mg daily * Continue valsartan 80 mg daily * Strict I&Os * Avoid nephrotoxic medication * We will follow up with the patient Thank you for giving us the opportunity to take care of your patient. Please call back if you have any question/concerns. Addendum Patient seen and examined, plan discussed with resident. Agree with above, we will follow closely half NS 1L Plan discussed with: Patient, Daughter, Other (RN) My Orders My Orders Orders - BHAVIN SHARMA Procedure Category Date Status Time Amlodipine Tablet PHA 07/14/25 Transmitted (Norvasc Tablet) 13:30 Amlodipine Tablet PHA 07/15/25 Transmitted (Norvasc Tablet) 10:00 1/2 Ns PHA 07/14/25 Transmitted 13:30 Dietary Evaluation Review Comments: Cardiac diet with Ensure High Protein 240ml PO BID Monitor PO intake to meet 75% of her needs Expected Outcomes/Goals: Improved nutrition related lab values BHAVIN SHARMA Jul 14, 2025 13:30 ALEXANDREA DUKE MD Jul 14, 2025 17:31
--- NOTE | 2025-07-14 13:47 | DVH ---
PROCEDURE: MRI BRAIN HEAD WO CONTRAST Indication: Tremors, gait disturbance COMPARISON: None TECHNIQUE: Multiplanar multisequence images of the brain are obtained. FINDINGS: There is no abnormal diffusion restriction. There are moderate periventricular and subcortical white matter T2 and FLAIR hyperintense changes. There is no intracranial hemorrhage. No extra-axial fluid collection, mass effect or midline shift. The ventricles are midline and normal in size. The cisterns are patent. Normal intracranial flow voids are preserved. No abnormal susceptibility signal. The sinuses and mastoids are well pneumatized. The visualized orbits are unremarkable. IMPRESSION: No acute cerebrovascular ischemia. Moderate chronic microvascular ischemic changes.
[2025-07-14] MEDS: SOD CHL 0.45% 1,000 ML IV ONE (16:34)
[2025-07-15] VITALS (13 sets, daily range): BP systolic 116–148; BP diastolic 39–74; PULSE 53–79; RESP 10–19; TEMP 97.2–98.8; O2SAT 94–99
[2025-07-15 07:30] LABS: Hematocrit 34.6 % (36.0-46.0); Hemoglobin 11.4 g/dL (12.2-16.2); Mean Corpuscular Hemoglobin 28.9 pg (28.0-32.0); Mean Corpuscular Volume 87.8 fL (80.0-100.0); Nucleated Red Blood Cells % 0.1 %
--- NOTE | 2025-07-15 07:52 | DVHPN2 ---
Reviewed: Care Plan, H&P, Labs, Medications, Previous Orders, Radiology Changes from previous H/P or p: No Changes Eyes: No Pain, No Vision change, No Conjunctivae inflammation, No Eyelid inflammation, No Other, No Redness ENT: No Ear pain, No Ear discharge, No Nose pain, No Nose discharge, No Nose congestion, No Mouth pain, No Mouth swelling, No Throat pain, No Throat swelling, No Other Cardiovascular: No Chest Pain, No Palpitations, No Orthopnea, No Paroxysmal Noc. Dyspnea, No Edema, No Lt Headedness, No Other Respiratory: No Cough, No Dry, No Shortness of breath, No SOB with excertion, No Wheezing, No Hemoptysis, No Pleuritic Pain, No Sputum, No Other Gastrointestinal: No Nausea, No Vomiting, No Abdominal Pain, No Diarrhea, No Constipation, No Melena, No Hematochezia, No Other Genitourinary: No Dysuria, No Frequency, No Incontinence, No Hematuria, No Retention, No Other Musculoskeletal: No other, No neck pain, No shoulder pain, No arm pain, No back pain, No hand pain, No leg pain, No foot pain Skin: No Rash, No Lesions, No Jaundice, No Bruising, No Other Objective Vitals Vital Signs Date Time Temp Pulse Resp B/P (MAP) Pulse Ox O2 Delivery O2 Flow Rate FiO2 07/15/25 05:00 97.4 63 18 146/69 (94) 97 97.4 07/14/25 20:00 Room Air* 0 21 Intake/Output Intake and Output 07/15/25 07:00 Intake Total 800 ml Output Total 400 ml Balance 400 ml Intake Oral 800 ml Output Urine Total 400 ml # Voids 2 # Bowel Movements 1 Medications Current Medications Medications Dose Ordered Sig/Kelsi Route Start Time Stop Time Status Last Admin Dose Admin Aspirin 81 mg DAILY PO 07/09/25 10:00 07/12/25 09:38 81 MG Valsartan 80 mg DAILY PO 07/09/25 10:00 07/14/25 09:38 80 MG Levothyroxine Sodium 75 mcg QAM@0600 PO 07/09/25 06:00 07/13/25 06:03 75 MCG Ondansetron HCl 4 mg Q4HP PRN IV 07/08/25 21:30 Acetaminophen 650 mg Q6HP PRN PO 07/08/25 21:30 Enoxaparin Sodium 40 mg DAILY SC 07/08/25 21:30 07/12/25 09:37 40 MG Hydralazine HCl 10 mg Q6HP PRN IV 07/09/25 18:00 07/10/25 06:27 10 MG Patient Own Medication 12 mg BID PO 07/10/25 22:00 Cancel Donepezil HCl 10 mg HS PO 07/10/25 22:00 07/14/25 21:38 10 MG Patient Own Medication 1 BID PO 07/10/25 22:00 07/14/25 21:38 1 Primidone 25 mg HS PO 07/12/25 22:00 Amlodipine Besylate 5 mg DAILY PO 07/15/25 10:00 Laboratory Results Laboratory Tests 07/15/25 04:28 Chemistry Test 07/15/25 04:28 Albumin Pending Calcium Level Pending Total Protein Pending LFT Test 07/15/25 04:28 Alanine Aminotransferase (ALT) Pending Alkaline Phosphatase Pending Aspartate Amino Transferase (AST) Pending Total Bilirubin Pending Urinalysis Test 07/08/25 14:10 Urine Color Yellow (Yellow) Urine Clarity Clear (Clear) Urine pH 5.0 (5.0-9.0) Urine Specific [place] 1.021 (1.001-1.035) Urine Protein 1+ (Negative) H Urine Ketones Negative (Negative) Urine Blood Negative /uL (Negative) Urine Nitrite Negative (Negative) Urine Bilirubin Negative (Negative) Urine Urobilinogen Normal mg/dL (Negative) Urine Leukocyte Esterase Negative /uL (Negative) Urine RBC 1 /hpf (0 - 4) Urine Microscopic WBC < 1 /HPF (0-5) Urine Squamous Epithelial Cells None seen /hpf (<5) Urine Bacteria None seen /hpf (None Seen) Urine Glucose Normal mg/dL (Normal) Microbiology Microbiology Date/Time Source Procedure Growth Status 07/08/25 22:45 Blood Blood Culture - Final NO GROWTH AFTER 5 DAYS OF INCUBATION. Complete Labs and/or images reviewed: Labs reviewed by me, Image(s) reviewed by me Assessment/Plan Assessment/Plan Acute metabolic encephalopathy rule out sepsis Cognitive dysfunction possibly medication induced Polypharmacy Tachybrady syndrome, cardiology consult by Dr. Missy zamudio, Dr. Peters planning for permanent pacemaker implantation on 07/15/2025; echocardiogram 55 % ejection fraction BAKARI versus VMN: Consult for Nephrology Dr. Roy appreciated, stopped hydrochlorothiazide, to continue valsartan added amlodipine 5 mg p.o. daily Elevated troponin 72, Non STEMI type 2 , consult for Cardiology Dr. Peters appreciated Hypertension Parkinson's disease ; neurology consult by Dr. Gomez appreciated recommended to continue AUSTEDO 12 mg p.o. b.i.d. reduce primidone to 50 mg p.o. HS Dementia:continue Aricept 10 mg p.o.daily Hypothyroidism: Continue Synthroid 75 mcg a day Bowel incontinence: MRI LS spine Multilevel disc degeneration. Multilevel spinal canal stenosis, most pronounced and moderate at L4-L5. Multilevel subarticular zone stenosis, most pronounced and severe at L4-L5 with bilateral descending L5 nerve root compression. Multilevel foraminal stenosis, most pronounced and mild at L4-L5. Consult for Dr. Steele pending pending Hypertension continue valsartan 80 mg p.o. daily Patient was on trazodone for depression recently discontinued Patient is DNR per patient's son José Luis who is at the bedside General Condition stable Rosa test negative Rapid flu test negative Blood cultures neg Physical Therapy ordered Time taken 55 minutes Discussed diagnosis management and plan of care with the patient's daughter Jade at bedside Plan discussed with: Patient My Orders Orders - AMITA HARMON MD Procedure Category Date Status Time Cardiac DIET 07/14/25 Transmitted Diet-2gna,Lofat,Lochol Breakfast Date of Service: Jul 15, 2025 Billing Provider: AMITA HARMON MD Common Visit Codes: [id number] INP/OBS CARE(HIGH) AMITA HARMON MD Jul 15, 2025 07:52
[2025-07-15 07:56] LABS: Alanine Aminotransferase 24 U/L (7-40); Albumin 3.9 g/dL (3.2-4.8); Alkaline Phosphatase 72 U/L (46-116); Anion Gap 13 (5-15); BUN/Creatinine Ratio 30.5 (10.0-20.0); Calcium 8.7 mg/dL (8.7-10.4); Carbon Dioxide 25 mmol/L (20-31); Chloride 103 mmol/L (98-107); Glucose 91 mg/dL (74-106); Potassium 4.4 mmol/L (3.5-5.1); Sodium 141 mmol/L (136-145); Total Protein 6.7 g/dL (5.7-8.2)
[2025-07-15 07:57] LABS: Bilirubin, Total 0.3 mg/dL (0.2-1.0)
[2025-07-15 07:59] LABS: Blood Urea Nitrogen 43 mg/dL (9-23)
[2025-07-15] MEDS: fentaNYL CITRATE 100 MCG/2 ML VL ONE (12:24)
[2025-07-15] MEDS: MIDAZOLAM HCL 2MG/2ML 2ml VIAL (1mg/ml) ONE (12:25)
[2025-07-15] MEDS: LIDOCAINE 2%HCL (LOCAL ANESTH.) INJ 20ML MDV ONE (12:25)
[2025-07-15] MEDS: IODIXANOL 320MG/ML 100ML BTL IV ONE (12:39)
--- NOTE | 2025-07-15 12:55 | DVHPN2 ---
Progress Note - Dictate Date Seen: Jul 15, 2025 Medical Necessity Reason Pt with a Central, PICC or Fol: No Subjective PT WITH ORG HEART DISEASE LABILE BP NOW WITH TACHYBRADY EPISODES HX OF HTN PARKINSON /DEMENTIA CKD / SINGLE KIDNEY MULTIPLE ORTHO PROCEDURES HYPOTHYROIDISM vital signs Vital Sign Date Time Temp Pulse Resp B/P (MAP) Pulse Ox O2 Delivery O2 Flow Rate FiO2 07/15/25 09:00 98.0 57 17 131/74 (93) 98 98.0 07/15/25 08:00 Room Air* 0 21 Total Intake and Output 07/14/25 07/14/25 07/15/25 15:00 23:00 07:00 Intake Total 600 ml 200 ml Output Total 400 ml Balance 200 ml 200 ml medications Current Medications Medications Dose Ordered Sig/Kelsi Route Start Time Stop Time Status Last Admin Dose Admin Aspirin 81 mg DAILY PO 07/09/25 10:00 07/12/25 09:38 81 MG Valsartan 80 mg DAILY PO 07/09/25 10:00 07/14/25 09:38 80 MG Levothyroxine Sodium 75 mcg QAM@0600 PO 07/09/25 06:00 07/13/25 06:03 75 MCG Ondansetron HCl 4 mg Q4HP PRN IV 07/08/25 21:30 Acetaminophen 650 mg Q6HP PRN PO 07/08/25 21:30 Enoxaparin Sodium 40 mg DAILY SC 07/08/25 21:30 07/12/25 09:37 40 MG Hydralazine HCl 10 mg Q6HP PRN IV 07/09/25 18:00 07/10/25 06:27 10 MG Patient Own Medication 12 mg BID PO 07/10/25 22:00 Cancel Donepezil HCl 10 mg HS PO 07/10/25 22:00 07/14/25 21:38 10 MG Patient Own Medication 1 BID PO 07/10/25 22:00 07/14/25 21:38 1 Primidone 25 mg HS PO 07/12/25 22:00 Amlodipine Besylate 5 mg DAILY PO 07/15/25 10:00 laboratory and microbiology Laboratory Tests 07/15/25 04:28 Test 07/15/25 04:28 Range/Units Serum Glucose 91 74-106 mg/dL Problem List ORG HEART DISEASE LABILE BP NOW WITH TACHYBRADY EPISODES HX OF HTN PARKINSON /DEMENTIA CKD / SINGLE KIDNEY MULTIPLE ORTHO PROCEDURES HYPOTHYROIDISM ANEMIA Assessment/Plan CONSIDER PPI IF FAMILY AND PT ARE AGREEABLE FAMILY DEFERRING PPI NOW FAMILY AGREEABLE TO PPI BECAUSE OF EPISODE OF BRADYCARDIA AGAIN PT'S FAMILY STILL INDECISIVE ABOUT PPI RECOMMEND 2nd OPINION/ EF WILL SIGN OFF NOW FAMILY HAVE CHANGED THEIR MIND WILL PROCEED WITH PPI LEAD LESS Dietary Evaluation Review Comments: Cardiac diet with Ensure High Protein 240ml PO BID Monitor PO intake to meet 75% of her needs Expected Outcomes/Goals: Improved nutrition related lab values Plan discussed with: Patient Critical Care Time(min): 35 JACQUE MARLOW MD Jul 15, 2025 12:55
[2025-07-15] MEDS: ANGIOMAX 250 MG VIAL IV ONE (13:34)
[2025-07-15] MEDS: SODIUM CHL 0.9% 50 ML ONE (13:34)
[2025-07-15] MEDS: SOD CHL 0.45% 1,000 ML IV SCH (13:45)
--- NOTE | 2025-07-15 15:03 | DVH ---
CHEST RADIOGRAPH REASON FOR EXAM: S/P PACEMAKER COMPARISON: XY CHEST XRAY 1 VIEW on DOS: 07/08/25 TECHNIQUE: One view of the chest is provided FINDINGS: The cardiomediastinal silhouette is within normal limits for technique. A small electronic device projects over the cardiomediastinal silhouette. There is no focal airspace disease. There is no significant pleural effusion. There is no pneumothorax. Surgical clips project over the sternoclavi cular region. No acute bony abnormality is identified. IMPRESSION: No radiographic evidence of acute cardiopulmonary process.
--- NOTE | 2025-07-15 15:20 | DVHOP ---
DATE OF SURGERY: 07/15/2025 PROCEDURE PERFORMED: Micra leadless Medtronic permanent pacemaker implantation. INDICATION: The patient with marked bradycardia with pauses greater than 30 seconds with symptomatic syncopal episode. The patient now to undergo the above-mentioned procedure with conscious sedation. Venography to be done. Through the IVC, venography was performed as well. DESCRIPTION OF PROCEDURE: The patient was prepped and draped under sterile condition. Xylocaine 1% was used to anesthetize the right groin. Using a Cook needle, right femoral vein was engaged. With Seldinger technique, a 6-Chinese sheath into the right femoral vein. Then, two Perclose devices were deployed per protocol. Once it was deployed, then using an Amplatz stiff wire, we used a 12, 18, and 24-Chinese dilator to dilate the artery. Then, a 24 sheath was inserted into the inferior vena cava up to the level of the right ventricle. The dilator was removed. The Amplatz wire was removed. Then, the Micra delivery device was appropriately deployed, deflected into the septum of the right ventricle. Threshold parameters were obtained. Stability of the pacemaker was checked and following adequate capture of the pacemaker and appropriate threshold parameters met, we released the wire, extracted the delivery device. The patient had successful deployment of the leadless Micra implantable permanent pacemaker. RESULTS: The patient had implantation of Micra device, model #UX2IFS9, serial #[id number]. Right ventricular R-wave amplitude of 13.8 millivolts, pacing impedance of 720 ohms, pacing threshold of 0.75 volts at 0.25 milliseconds. Pacer parameter set: Amplitude of 2.5, pulse width of 0.24, sensitivity of 2.0 millivolts. Sensing polarity was not available. Thus, the patient's successful implantation of Medtronic Micra leadless permanent pacemaker implantation paced at DDD. Fran Jeffers MD SA/PRICILLA TID: [id number] RECEIPT: [id number]
[2025-07-15] MEDS: ceFAZolin 2 GM/D5W50ml 50 ML IV ONE (15:36)
[2025-07-15 16:07] LABS: Chloride 106 mmol/L (98-107); Potassium 4.6 mmol/L (3.5-5.1); Sodium 141 mmol/L (136-145)
[2025-07-15 16:08] LABS: Anion Gap 9 (5-15); Carbon Dioxide 26 mmol/L (20-31)
[2025-07-15 16:12] LABS: Calcium 8.6 mg/dL (8.7-10.4)
[2025-07-15 16:13] LABS: BUN/Creatinine Ratio 30.1 (10.0-20.0); Glucose 96 mg/dL (74-106); Magnesium 2.1 mg/dL (1.6-2.6)
[2025-07-15 16:15] LABS: Blood Urea Nitrogen 37 mg/dL (9-23)
--- NOTE | 2025-07-15 17:33 | DVHPN2 ---
Progress Note Date Seen: Jul 15, 2025 Resident Creating Document: BHAVIN SHARMA RESDIENT Medical Necessity Reason Pt with a Central, PICC or Fol: No Subjective Review of Systems Patient seen and examined at the bedside. Patient is feeling better since admission and does not report any active complaint. Objective vital signs Vital Sign Date Time Temp Pulse Resp B/P (MAP) Pulse Ox O2 Delivery O2 Flow Rate FiO2 07/15/25 17:00 98.2 58 17 139/72 (94) 96 98.2 07/15/25 08:00 Room Air* 0 21 Total Intake and Output 07/14/25 07/14/25 07/15/25 14:59 22:59 06:59 Intake Total 600 ml 200 ml Output Total 400 ml Balance 200 ml 200 ml medications Current Medications Medications Dose Ordered Sig/Kelsi Route Start Time Stop Time Status Last Admin Dose Admin Aspirin 81 mg DAILY PO 07/09/25 10:00 07/12/25 09:38 81 MG Valsartan 80 mg DAILY PO 07/09/25 10:00 07/14/25 09:38 80 MG Levothyroxine Sodium 75 mcg QAM@0600 PO 07/09/25 06:00 07/13/25 06:03 75 MCG Ondansetron HCl 4 mg Q4HP PRN IV 07/08/25 21:30 Acetaminophen 650 mg Q6HP PRN PO 07/08/25 21:30 Enoxaparin Sodium 40 mg DAILY SC 07/08/25 21:30 07/12/25 09:37 40 MG Hydralazine HCl 10 mg Q6HP PRN IV 07/09/25 18:00 07/10/25 06:27 10 MG Patient Own Medication 12 mg BID PO 07/10/25 22:00 Cancel Donepezil HCl 10 mg HS PO 07/10/25 22:00 07/14/25 21:38 10 MG Patient Own Medication 1 BID PO 07/10/25 22:00 07/14/25 21:38 1 Primidone 25 mg HS PO 07/12/25 22:00 Amlodipine Besylate 5 mg DAILY PO 07/15/25 10:00 Sodium Chloride 1,000 ml @ 75 mls/hr [id number] IV 07/15/25 13:45 07/15/25 13:45 75 MLS/HR Examination General Appearance: Alert, Oriented X3, Cooperative, No acute distress HEENT: Atraumatic, PERRLA, EOMI, dry mucous membranes Respiratory: Clear to auscultation, Normal air movement Cardiovascular: Regular rate, Normal S1, Normal S2, No murmurs, no chest wall tenderness Abdominal: Normal bowel sounds, Soft, No tenderness, No hepatospenomegaly, No masses Extremities: No clubbing, No cyanosis, No edema, Normal pulses, No tenderness/swelling Skin: Decreased skin turgor Neuro: Normal gait, Normal speech, Strength at 5/5 X4 ext, Normal tone, Sensation intact, Cranial nerves 3-12 NL, Reflexes 2+ Psych/Mental Status: Mental status NL, Mood NL laboratory and microbiology Laboratory Tests 07/15/25 15:47 07/15/25 04:28 Test 07/15/25 15:47 Range/Units Serum Glucose 96 74-106 mg/dL Microbiology Date/Time Source Procedure Growth Status 07/08/25 22:45 Blood Blood Culture - Final NO GROWTH AFTER 5 DAYS OF INCUBATION. Complete Labs and/or images reviewed: Labs reviewed by me, Image(s) reviewed by me Problem List/Assessment/Plan Problem List/Assessment/Plan This is an 80-year-old lady with past medical history of dementia, Parkinson disease, hypertension, hypothyroidism, CKD (3 B), brought in to the hospital due to generalized weakness and decreased oral intake. BAKARI on CKD (possibly 3B, per family report, baseline record not available), hemodynamic mediated etiology Hypovolemia Mild anemia Dementia and Parkinson disease Hyperphosphatemia Hypertension Hypothyroidism Non ST-elevation [place] Degenerative spine disease Plan/recommendation: (Dr. Duke) * Kidney function has worsened, likely due to decreased oral intake * IV 0.45 NS at 75 mL/hour, 1 L * Amlodipine 10 mg daily * Discontinue valsartan 80 mg daily * Strict I&Os * Avoid nephrotoxic medication * We will follow up with the patient Thank you for giving us the opportunity to take care of your patient. Please call back if you have any question/concerns. Addendum Patient seen and examined, plan discussed with resident. Agree with above, we will follow closely holding valsartan today iv contrast use noted--ivf 1 L Plan discussed with: Patient, Other (RN) Dietary Evaluation Review Comments: Cardiac diet with Ensure High Protein 240ml PO BID Monitor PO intake to meet 75% of her needs Expected Outcomes/Goals: Improved nutrition related lab values BHAVIN SHARMA Jul 15, 2025 17:33 ALEXANDREA DUKE MD Jul 15, 2025 18:18
--- NOTE | 2025-07-15 18:05 | DVHPN2 ---
Progress Note - Dictate Date Seen: Jul 15, 2025 Medical Necessity Reason Pt with a Central, PICC or Fol: No Subjective Ms. Estrada is an 80 year old female right-handed female with a history of hypertension, thyroidism, femur fracture, she was brought to the [facility] on 07/08/2025 with a chief complaint of general weakness, gait disturbance, falls, I have seen and examined the patient, talked to her nurse, son and the daughter. The tremors worse today, otherwise the patient is doing fine He is awake, oriented times 2-3, good social skills According to her home medication bottles, her home medication: Aricept 10 mg daily, Austedo 12 mg b.i.d.. primidone 100 mg HS Urinalysis, 07/08/2025: WBC: One, urine leukocyte esterase: Negative WBC/HB/PLT/MCV, 07/09/2025: 6.1//174/86.6 BUN/CR, 07/09/2025: 22/1.06 GFR, 07/09/2025: 53 TBI/AST/ALT/AP, 07/09/2025: 0.3/151/55/78 TG/HDL/LDL/HDL, 07/10/2025: 127/227/154/47 TSH, 07/08/2025: 2.3 CT head, 07/08/2025: No acute intracranial findings MRI head, 07/14/2025: No acute cerebrovascular ischemia. Moderate chronic microvascular ischemic changes. vital signs Vital Sign Date Time Temp Pulse Resp B/P (MAP) Pulse Ox O2 Delivery O2 Flow Rate FiO2 07/15/25 18:01 139/72 07/15/25 17:00 98.2 58 17 96 98.2 07/15/25 08:00 Room Air* 0 21 Total Intake and Output 07/14/25 07/14/25 07/15/25 15:00 23:00 07:00 Intake Total 600 ml 200 ml Output Total 400 ml Balance 200 ml 200 ml medications Current Medications Medications Dose Ordered Sig/Kelsi Route Start Time Stop Time Status Last Admin Dose Admin Aspirin 81 mg DAILY PO 07/09/25 10:00 07/12/25 09:38 81 MG Levothyroxine Sodium 75 mcg QAM@0600 PO 07/09/25 06:00 07/13/25 06:03 75 MCG Ondansetron HCl 4 mg Q4HP PRN IV 07/08/25 21:30 Acetaminophen 650 mg Q6HP PRN PO 07/08/25 21:30 Enoxaparin Sodium 40 mg DAILY SC 07/08/25 21:30 07/12/25 09:37 40 MG Hydralazine HCl 10 mg Q6HP PRN IV 07/09/25 18:00 07/10/25 06:27 10 MG Patient Own Medication 12 mg BID PO 07/10/25 22:00 Cancel Donepezil HCl 10 mg HS PO 07/10/25 22:00 07/14/25 21:38 10 MG Patient Own Medication 1 BID PO 07/10/25 22:00 07/14/25 21:38 1 Primidone 25 mg HS PO 07/12/25 22:00 Sodium Chloride 1,000 ml @ 75 mls/hr [id number] IV 07/15/25 13:45 07/15/25 13:45 75 MLS/HR Amlodipine Besylate 10 mg DAILY PO 07/16/25 10:00 objective General: the patient is well developed and nourished. No acute distress. MENTAL STATUS: Subjective SPEECH, LANGUAGE, HIGHER CORTICAL FUNCTION: no aphasia or dysathria. CRANIAL NERVES: Pupils are equal, round and reactive. EOMs full and conjugate. No nystagmus. Facial sensation intact in all three divisions bilaterally. Mandibular strength intact. Facial muscles symmetrical and strength intact. Tongue midline. No fasciculations or atrophy. SENSATION: Sensation to touch and pinprick is normal. MOTOR: Normal tone in the upper and lower extremity. Normal muscle bulk. No fasciculations. Muscle strength of the major groups in the extremities is 5/5. Shaking in the both upper extremities, right-sided more affected, per my observation, better with the arms are resting. Grimacing movement noticed REFLEXES: Deep tendon reflexes normal and symmetrical. No pathological reflexes. CEREBELLAR/COORDINATION: Finger to nose showed very mild intentional tremors in both hands GAIT/STATION: deferred. 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 Aricept 10 mg q.h.s. Physical therapy More recommendation per clinical course This medical document was created using an electronic medical record system with [employer] dictation system. Although this document has been carefully reviewed, there may still be some phonetic and typographical errors. These areas are purely typographical due to imperfections of the software programs, and do not reflect any compromise in the patient's medical care. Prognosis poor Dietary Evaluation Review Comments: Cardiac diet with Ensure High Protein 240ml PO BID Monitor PO intake to meet 75% of her needs Expected Outcomes/Goals: Improved nutrition related lab values Plan discussed with: Daughter, Son, Other Total Time (mins): 35 VANESA KAMARA MD Jul 15, 2025 18:05
[2025-07-16] VITALS (8 sets, daily range): BP systolic 114–138; BP diastolic 46–65; PULSE 59–70; RESP 16–18; TEMP 97.5–98.2; O2SAT 96–100
--- NOTE | 2025-07-16 09:22 | DVHPN2 ---
Reviewed: Care Plan, H&P, Labs, Medications, Previous Orders, Radiology Changes from previous H/P or p: No Changes Eyes: No Pain, No Vision change, No Conjunctivae inflammation, No Eyelid inflammation, No Other, No Redness ENT: No Ear pain, No Ear discharge, No Nose pain, No Nose discharge, No Nose congestion, No Mouth pain, No Mouth swelling, No Throat pain, No Throat swelling, No Other Cardiovascular: No Chest Pain, No Palpitations, No Orthopnea, No Paroxysmal Noc. Dyspnea, No Edema, No Lt Headedness, No Other Respiratory: No Cough, No Dry, No Shortness of breath, No SOB with excertion, No Wheezing, No Hemoptysis, No Pleuritic Pain, No Sputum, No Other Gastrointestinal: No Nausea, No Vomiting, No Abdominal Pain, No Diarrhea, No Constipation, No Melena, No Hematochezia, No Other Genitourinary: No Dysuria, No Frequency, No Incontinence, No Hematuria, No Retention, No Other Musculoskeletal: No other, No neck pain, No shoulder pain, No arm pain, No back pain, No hand pain, No leg pain, No foot pain Skin: No Rash, No Lesions, No Jaundice, No Bruising, No Other Objective Vitals Vital Signs Date Time Temp Pulse Resp B/P (MAP) Pulse Ox O2 Delivery O2 Flow Rate FiO2 07/16/25 08:49 97.5 63 17 138/63 (88) 99 97.5 07/15/25 20:00 Room Air* 0 21 Intake/Output Intake and Output 07/16/25 07:00 Intake Total 600 ml Balance 600 ml Intake Oral 600 ml # Voids 4 Medications Current Medications Medications Dose Ordered Sig/Kelsi Route Start Time Stop Time Status Last Admin Dose Admin Aspirin 81 mg DAILY PO 07/09/25 10:00 07/12/25 09:38 81 MG Levothyroxine Sodium 75 mcg QAM@0600 PO 07/09/25 06:00 07/16/25 05:20 75 MCG Ondansetron HCl 4 mg Q4HP PRN IV 07/08/25 21:30 Acetaminophen 650 mg Q6HP PRN PO 07/08/25 21:30 Enoxaparin Sodium 40 mg DAILY SC 07/08/25 21:30 07/12/25 09:37 40 MG Hydralazine HCl 10 mg Q6HP PRN IV 07/09/25 18:00 07/10/25 06:27 10 MG Patient Own Medication 12 mg BID PO 07/10/25 22:00 Cancel Donepezil HCl 10 mg HS PO 07/10/25 22:00 07/15/25 21:23 10 MG Patient Own Medication 1 BID PO 07/10/25 22:00 07/15/25 21:24 1 Primidone 25 mg HS PO 07/12/25 22:00 Sodium Chloride 1,000 ml @ 75 mls/hr [id number] IV 07/15/25 13:45 07/16/25 03:05 75 MLS/HR Amlodipine Besylate 10 mg DAILY PO 07/16/25 10:00 Laboratory Results Laboratory Tests 07/15/25 04:28 07/15/25 15:47 Chemistry Test 07/15/25 15:47 Calcium Level 8.6 mg/dL (8.7-10.4) L Magnesium Level 2.1 mg/dL (1.6-2.6) Phosphorus Level 4.7 mg/dL (2.4-5.1) Urinalysis Test 07/08/25 14:10 Urine Color Yellow (Yellow) Urine Clarity Clear (Clear) Urine pH 5.0 (5.0-9.0) Urine Specific [place] 1.021 (1.001-1.035) Urine Protein 1+ (Negative) H Urine Ketones Negative (Negative) Urine Blood Negative /uL (Negative) Urine Nitrite Negative (Negative) Urine Bilirubin Negative (Negative) Urine Urobilinogen Normal mg/dL (Negative) Urine Leukocyte Esterase Negative /uL (Negative) Urine RBC 1 /hpf (0 - 4) Urine Microscopic WBC < 1 /HPF (0-5) Urine Squamous Epithelial Cells None seen /hpf (<5) Urine Bacteria None seen /hpf (None Seen) Urine Glucose Normal mg/dL (Normal) Microbiology Microbiology Date/Time Source Procedure Growth Status 07/08/25 22:45 Blood Blood Culture - Final NO GROWTH AFTER 5 DAYS OF INCUBATION. Complete Labs and/or images reviewed: Labs reviewed by me, Image(s) reviewed by me Assessment/Plan Assessment/Plan Syncope secondary to symptomatic bradycardia Status post successful implantation of Medtronic Micra leadless permanent pacemaker by Dr Peters on 07-15-25, echocardiogram 55 % ejection fraction Acute metabolic encephalopathy Cognitive dysfunction possibly medication induced Polypharmacy BAKARI versus VMN: Consult for Nephrology Dr. Roy appreciated, stopped hydrochlorothiazide, to continue valsartan added amlodipine 5 mg p.o. daily Elevated troponin 72, Non STEMI type 2 , consult for Cardiology Dr. Peters appreciated Hypertension Parkinson's disease ; neurology consult by Dr. Gomez appreciated recommended to continue AUSTEDO 12 mg p.o. b.i.d. reduce primidone to 50 mg p.o. HS Dementia:continue Aricept 10 mg p.o.daily Hypothyroidism: Continue Synthroid 75 mcg a day Bowel incontinence: MRI LS spine Multilevel disc degeneration. Multilevel spinal canal stenosis, most pronounced and moderate at L4-L5. Multilevel subarticular zone stenosis, most pronounced and severe at L4-L5 with bilateral descending L5 nerve root compression. Multilevel foraminal stenosis, most pronounced and mild at L4-L5. Consult for Dr. Steele pending pending Hypertension continue valsartan 80 mg p.o. daily Patient was on trazodone for depression recently discontinued Patient is DNR per patient's son José Luis who is at the bedside General Condition stable Rosa test negative Rapid flu test negative Blood cultures neg Physical Therapy ordered Time taken 55 minutes Discussed diagnosis management and plan of care with the patient's son at bedside Plan discussed with: Patient Date of Service: Jul 16, 2025 Billing Provider: AMITA HARMON MD Common Visit Codes: [id number] CARE 30-74 MIN AMITA HARMON MD Jul 16, 2025 09:22
[2025-07-17] VITALS (9 sets, daily range): BP systolic 110–160; BP diastolic 50–67; PULSE 51–72; RESP 16–19; TEMP 97.6–98.8; O2SAT 96–99
--- NOTE | 2025-07-17 08:35 | DVHPN2 ---
Reviewed: Care Plan, H&P, Labs, Medications, Previous Orders, Radiology Changes from previous H/P or p: No Changes Eyes: No Pain, No Vision change, No Conjunctivae inflammation, No Eyelid inflammation, No Other, No Redness ENT: No Ear pain, No Ear discharge, No Nose pain, No Nose discharge, No Nose congestion, No Mouth pain, No Mouth swelling, No Throat pain, No Throat swelling, No Other Cardiovascular: No Chest Pain, No Palpitations, No Orthopnea, No Paroxysmal Noc. Dyspnea, No Edema, No Lt Headedness, No Other Respiratory: No Cough, No Dry, No Shortness of breath, No SOB with excertion, No Wheezing, No Hemoptysis, No Pleuritic Pain, No Sputum, No Other Gastrointestinal: No Nausea, No Vomiting, No Abdominal Pain, No Diarrhea, No Constipation, No Melena, No Hematochezia, No Other Genitourinary: No Dysuria, No Frequency, No Incontinence, No Hematuria, No Retention, No Other Musculoskeletal: No other, No neck pain, No shoulder pain, No arm pain, No back pain, No hand pain, No leg pain, No foot pain Skin: No Rash, No Lesions, No Jaundice, No Bruising, No Other Objective Vitals Vital Signs Date Time Temp Pulse Resp B/P (MAP) Pulse Ox O2 Delivery O2 Flow Rate FiO2 07/17/25 05:46 61 137/66 (89) 07/17/25 04:30 98.7 19 96 98.7 07/16/25 20:00 Room Air* 0 21 Intake/Output Intake and Output 07/17/25 07:00 Intake Total 1090 ml Balance 1090 ml Intake Oral 1090 ml # Voids 3 # Bowel Movements 2 Medications Current Medications Medications Dose Ordered Sig/Kelsi Route Start Time Stop Time Status Last Admin Dose Admin Aspirin 81 mg DAILY PO 07/09/25 10:00 07/16/25 09:33 81 MG Levothyroxine Sodium 75 mcg QAM@0600 PO 07/09/25 06:00 07/17/25 05:47 75 MCG Ondansetron HCl 4 mg Q4HP PRN IV 07/08/25 21:30 Acetaminophen 650 mg Q6HP PRN PO 07/08/25 21:30 Enoxaparin Sodium 40 mg DAILY SC 07/08/25 21:30 07/16/25 09:32 40 MG Hydralazine HCl 10 mg Q6HP PRN IV 07/09/25 18:00 07/10/25 06:27 10 MG Patient Own Medication 12 mg BID PO 07/10/25 22:00 Cancel Donepezil HCl 10 mg HS PO 07/10/25 22:00 07/16/25 22:10 10 MG Patient Own Medication 1 BID PO 07/10/25 22:00 07/16/25 22:10 1 Primidone 25 mg HS PO 07/12/25 22:00 Amlodipine Besylate 10 mg DAILY PO 07/16/25 10:00 07/16/25 09:33 10 MG Laboratory Results Laboratory Tests 07/15/25 04:28 07/15/25 15:47 Urinalysis Test 07/08/25 14:10 Urine Color Yellow (Yellow) Urine Clarity Clear (Clear) Urine pH 5.0 (5.0-9.0) Urine Specific [place] 1.021 (1.001-1.035) Urine Protein 1+ (Negative) H Urine Ketones Negative (Negative) Urine Blood Negative /uL (Negative) Urine Nitrite Negative (Negative) Urine Bilirubin Negative (Negative) Urine Urobilinogen Normal mg/dL (Negative) Urine Leukocyte Esterase Negative /uL (Negative) Urine RBC 1 /hpf (0 - 4) Urine Microscopic WBC < 1 /HPF (0-5) Urine Squamous Epithelial Cells None seen /hpf (<5) Urine Bacteria None seen /hpf (None Seen) Urine Glucose Normal mg/dL (Normal) Microbiology Microbiology Date/Time Source Procedure Growth Status 07/08/25 22:45 Blood Blood Culture - Final NO GROWTH AFTER 5 DAYS OF INCUBATION. Complete Labs and/or images reviewed: Labs reviewed by me, Image(s) reviewed by me Assessment/Plan Assessment/Plan Syncope secondary to symptomatic bradycardia Status post successful implantation of Medtronic Micra leadless permanent pacemaker by Dr Peters on 07-15-25, echocardiogram 55 % ejection fraction Acute metabolic encephalopathy Cognitive dysfunction possibly medication induced Polypharmacy BAKARI versus [facility]N: Consult for Nephrology Dr. Roy appreciated, stopped hydrochlorothiazide, to continue valsartan added amlodipine 5 mg p.o. daily Elevated troponin 72, Non STEMI type 2 , consult for Cardiology Dr. Peters appreciated Hypertension Parkinson's disease ; neurology consult by Dr. Gomez appreciated recommended to continue AUSTEDO 12 mg p.o. b.i.d. reduce primidone to 50 mg p.o. HS Dementia:continue Aricept 10 mg p.o.daily Hypothyroidism: Continue Synthroid 75 mcg a day Bowel incontinence: MRI LS spine Multilevel disc degeneration. Multilevel spinal canal stenosis, most pronounced and moderate at L4-L5. Multilevel subarticular zone stenosis, most pronounced and severe at L4-L5 with bilateral descending L5 nerve root compression. Multilevel foraminal stenosis, most pronounced and mild at L4-L5. Consult for Dr. Steele pending pending Hypertension continue valsartan 80 mg p.o. daily Patient was on trazodone for depression recently discontinued Patient is DNR per patient's son José Luis who is at the bedside General Condition stable Rosa test negative Rapid flu test negative Blood cultures neg Physical Therapy ordered Time taken 55 minutes Discussed diagnosis management and plan of care with the patient's son at bedside Plan discussed with: Patient My Orders Orders - AMITA HARMON MD Procedure Category Date Status Time Complete Blood Count LAB 07/18/25 Verified 04:00 Comprehensive LAB 07/18/25 Verified Metabolic Panel 04:00 Magnesium LAB 07/18/25 Verified 04:00 Date of Service: Jul 17, 2025 Billing Provider: AMITA HARMON MD Common Visit Codes: [id number] INP/OBS CARE(HIGH) AMITA HARMON MD Jul 17, 2025 08:35
--- NOTE | 2025-07-17 13:44 | ECG ---
[facility] Test Date: 2025-07-16 Test Time: 08:15:02 Pat Name: ZULEYMA RODRÍGUEZ Department: Room: 0231T A Gender: F Estate Planner: [id number] : 1945 Requested By: JACQUE MARLOW Order Number: [id number] Reading MD: Pineda Boothe Measurements Intervals [place] Rate: 63 P: 126 ME: 56 QRS: -29 QRSD: 148 T: -27 QT: 476 QTc: 488 Interpretive Statements Ventricular-paced rhythm No further analysis attempted due to paced rhythm Electronically Signed On 07-19-2025 17:19:51 PST by Pineda Boothe Please click the below link to view image of tracing.
--- NOTE | 2025-07-17 13:45 | ECG ---
[facility] Test Date: 2025-07-15 Test Time: 14:33:45 Pat Name: ZULEYMA RODRÍGUEZ Department: Room: 0231T A Gender: F Driveway Attendant: MARY PINTOB: 1945 Requested By: KELSEY CHRISTIAN Order Number: [id number] Reading MD: Pineda Boothe Measurements Intervals [place] Rate: 60 P: 0 DE: 0 QRS: -56 QRSD: 146 T: 55 QT: 456 QTc: 456 Interpretive Statements Wide QRS rhythm Right bundle branch block Left anterior fascicular block Bifascicular block Moderate voltage criteria for LVH, may be normal variant Cannot rule out Septal infarct , age undetermined Electronically Signed On 07-19-2025 17:16:42 PST by Pineda Boothe Please click the below link to view image of tracing.
--- NOTE | 2025-07-17 17:54 | DVHPN2 ---
Progress Note Date Seen: Jul 17, 2025 Medical Necessity Reason Pt with a Central, PICC or Fol: No Subjective Patient reports: No new complaints Objective vital signs Vital Sign Date Time Temp Pulse Resp B/P (MAP) Pulse Ox O2 Delivery O2 Flow Rate FiO2 07/17/25 16:49 98.6 51 16 136/67 (90) 97 98.6 07/17/25 07:30 Room Air* 0 21 Total Intake and Output 07/16/25 07/16/25 07/17/25 15:00 23:00 07:00 Intake Total 950 ml 140 ml Balance 950 ml 140 ml medications Current Medications Medications Dose Ordered Sig/Kelsi Route Start Time Stop Time Status Last Admin Dose Admin Aspirin 81 mg DAILY PO 07/09/25 10:00 07/17/25 08:48 81 MG Levothyroxine Sodium 75 mcg QAM@0600 PO 07/09/25 06:00 07/17/25 05:47 75 MCG Ondansetron HCl 4 mg Q4HP PRN IV 07/08/25 21:30 Acetaminophen 650 mg Q6HP PRN PO 07/08/25 21:30 Enoxaparin Sodium 40 mg DAILY SC 07/08/25 21:30 07/17/25 08:48 40 MG Hydralazine HCl 10 mg Q6HP PRN IV 07/09/25 18:00 07/10/25 06:27 10 MG Patient Own Medication 12 mg BID PO 07/10/25 22:00 Cancel Donepezil HCl 10 mg HS PO 07/10/25 22:00 07/16/25 22:10 10 MG Patient Own Medication 1 BID PO 07/10/25 22:00 07/17/25 08:49 1 Primidone 25 mg HS PO 07/12/25 22:00 Amlodipine Besylate 10 mg DAILY PO 07/16/25 10:00 07/17/25 08:49 10 MG laboratory and microbiology Laboratory Tests 07/15/25 15:47 07/15/25 04:28 Test 07/15/25 15:47 Range/Units Serum Glucose 96 74-106 mg/dL Microbiology Date/Time Source Procedure Growth Status 07/08/25 22:45 Blood Blood Culture - Final NO GROWTH AFTER 5 DAYS OF INCUBATION. Complete Problem List/Assessment/Plan Problem List/Assessment/Plan This is an 80-year-old lady with past medical history of dementia, Parkinson disease, hypertension, hypothyroidism, CKD (3 B), brought in to the hospital due to generalized weakness and decreased oral intake. BAKARI on CKD (possibly 3B, per family report, baseline record not available), hemodynamic mediated etiology Hypovolemia Mild anemia Dementia and Parkinson disease Hyperphosphatemia Hypertension Hypothyroidism Non ST-elevation [place] Degenerative spine disease Plan/recommendation: dc ivf amlodipine valsartan on hold--can resume if sbp>140 Plan discussed with: Son Dietary Evaluation Review Comments: Cardiac diet with Ensure High Protein 240ml PO BID Monitor PO intake to meet 75% of her needs Expected Outcomes/Goals: Improved nutrition related lab values ALEXANDREA DUKE MD Jul 17, 2025 17:54
--- NOTE | 2025-07-17 18:46 | DVHPN2 ---
Progress Note - Dictate Date Seen: Jul 17, 2025 Medical Necessity Reason Pt with a Central, PICC or Fol: No Subjective Ms. Estrada is an 80 year old female right-handed female with a history of hypertension, thyroidism, femur fracture, she was brought to the [facility] on 07/08/2025 with a chief complaint of general weakness, gait disturbance, falls, I have seen and examined the patient, talked to her nurse, family. Keeps has been tremors He is awake, oriented times 2-3, good social skills He has been for shelter on 07/18/2025 Urinalysis, 07/08/2025: WBC: One, urine leukocyte esterase: Negative WBC/HB/PLT/MCV, 07/09/2025: 6.1/11/174/86.6 BUN/CR, 07/09/2025: 22/1.06 GFR, 07/09/2025: 53 TBI/AST/ALT/AP, 07/09/2025: 0.3/151/55/78 TG/HDL/LDL/HDL, 07/10/2025: 127/227/154/47 TSH, 07/08/2025: 2.3 CT head, 07/08/2025: No acute intracranial findings MRI head, 07/14/2025: No acute cerebrovascular ischemia. Moderate chronic microvascular ischemic changes. vital signs Vital Sign Date Time Temp Pulse Resp B/P (MAP) Pulse Ox O2 Delivery O2 Flow Rate FiO2 07/17/25 16:49 98.6 51 16 136/67 (90) 97 98.6 07/17/25 07:30 Room Air* 0 21 Total Intake and Output 07/16/25 07/16/25 07/17/25 15:00 23:00 07:00 Intake Total 950 ml 140 ml Balance 950 ml 140 ml medications Current Medications Medications Dose Ordered Sig/Kelsi Route Start Time Stop Time Status Last Admin Dose Admin Aspirin 81 mg DAILY PO 07/09/25 10:00 07/17/25 08:48 81 MG Levothyroxine Sodium 75 mcg QAM@0600 PO 07/09/25 06:00 07/17/25 05:47 75 MCG Ondansetron HCl 4 mg Q4HP PRN IV 07/08/25 21:30 Acetaminophen 650 mg Q6HP PRN PO 07/08/25 21:30 Enoxaparin Sodium 40 mg DAILY SC 07/08/25 21:30 07/17/25 08:48 40 MG Hydralazine HCl 10 mg Q6HP PRN IV 07/09/25 18:00 07/10/25 06:27 10 MG Patient Own Medication 12 mg BID PO 07/10/25 22:00 Cancel Donepezil HCl 10 mg HS PO 07/10/25 22:00 07/16/25 22:10 10 MG Patient Own Medication 1 BID PO 07/10/25 22:00 07/17/25 08:49 1 Primidone 25 mg HS PO 07/12/25 22:00 Amlodipine Besylate 10 mg DAILY PO 07/16/25 10:00 07/17/25 08:49 10 MG objective General: the patient is well developed and nourished. No acute distress. MENTAL STATUS: Subjective SPEECH, LANGUAGE, HIGHER CORTICAL FUNCTION: no aphasia or dysathria. CRANIAL NERVES: Pupils are equal, round and reactive. EOMs full and conjugate. No nystagmus. Facial sensation intact in all three divisions bilaterally. Mandibular strength intact. Facial muscles symmetrical and strength intact. Tongue midline. No fasciculations or atrophy. SENSATION: Sensation to touch and pinprick is normal. MOTOR: Normal tone in the upper and lower extremity. Normal muscle bulk. No fasciculations. Muscle strength of the major groups in the extremities is 5/5. Shaking in the both upper extremities, right-sided more affected, per my observation, better with the arms are resting. Grimacing movement noticed REFLEXES: Deep tendon reflexes normal and symmetrical. No pathological reflexes. CEREBELLAR/COORDINATION: Finger to nose showed very mild intentional tremors in both hands GAIT/STATION: deferred. 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 Aricept 10 mg q.h.s. Physical therapy More recommendation per clinical course This medical document was created using an electronic medical record system with [employer] system. Although this document has been carefully reviewed, there may still be some phonetic and typographical errors. These areas are purely typographical due to imperfections of the software programs, and do not reflect any compromise in the patient's medical care. Prognosis poor Dietary Evaluation Review Comments: Cardiac diet with Ensure High Protein 240ml PO BID Monitor PO intake to meet 75% of her needs Expected Outcomes/Goals: Improved nutrition related lab values Plan discussed with: Patient, Son, Other VANESA KAMARA MD Jul 17, 2025 18:46
[2025-07-18] VITALS (7 sets, daily range): BP systolic 102–157; BP diastolic 58–70; PULSE 59–70; RESP 16–18; TEMP 97.6–98.1; O2SAT 95–98
[2025-07-18 06:44] LABS: Hematocrit 32.8 % (36.0-46.0); Hemoglobin 11.0 g/dL (12.2-16.2); Mean Corpuscular Hemoglobin 29.3 pg (28.0-32.0); Mean Corpuscular Volume 87.9 fL (80.0-100.0); Nucleated Red Blood Cells % 0.1 %
[2025-07-18 06:59] LABS: Alanine Aminotransferase 18 U/L (7-40); Alkaline Phosphatase 82 U/L (46-116); Anion Gap 11 (5-15); BUN/Creatinine Ratio 27.7 (10.0-20.0); Calcium 8.9 mg/dL (8.7-10.4); Carbon Dioxide 25 mmol/L (20-31); Chloride 106 mmol/L (98-107); Glucose 96 mg/dL (74-106); Magnesium 2.5 mg/dL (1.6-2.6); Potassium 4.6 mmol/L (3.5-5.1); Sodium 142 mmol/L (136-145); Total Protein 6.5 g/dL (5.7-8.2)
[2025-07-18 07:00] LABS: Albumin 3.7 g/dL (3.2-4.8); Bilirubin, Total 0.3 mg/dL (0.2-1.0); Blood Urea Nitrogen 33 mg/dL (9-23)
--- NOTE | 2025-07-18 10:37 | DVHPN2 ---
Reviewed: Care Plan, H&P, Labs, Medications, Previous Orders, Radiology Changes from previous H/P or p: No Changes Eyes: No Pain, No Vision change, No Conjunctivae inflammation, No Eyelid inflammation, No Other, No Redness ENT: No Ear pain, No Ear discharge, No Nose pain, No Nose discharge, No Nose congestion, No Mouth pain, No Mouth swelling, No Throat pain, No Throat swelling, No Other Cardiovascular: No Chest Pain, No Palpitations, No Orthopnea, No Paroxysmal Noc. Dyspnea, No Edema, No Lt Headedness, No Other Respiratory: No Cough, No Dry, No Shortness of breath, No SOB with excertion, No Wheezing, No Hemoptysis, No Pleuritic Pain, No Sputum, No Other Gastrointestinal: No Nausea, No Vomiting, No Abdominal Pain, No Diarrhea, No Constipation, No Melena, No Hematochezia, No Other Genitourinary: No Dysuria, No Frequency, No Incontinence, No Hematuria, No Retention, No Other Musculoskeletal: No other, No neck pain, No shoulder pain, No arm pain, No back pain, No hand pain, No leg pain, No foot pain Skin: No Rash, No Lesions, No Jaundice, No Bruising, No Other Objective Vitals Vital Signs Date Time Temp Pulse Resp B/P (MAP) Pulse Ox O2 Delivery O2 Flow Rate FiO2 07/18/25 09:48 157/70 07/18/25 08:30 98.1 64 16 96 98.1 07/18/25 07:30 Room Air* 0 21 Intake/Output Intake and Output 07/18/25 07:00 Intake Total 1100 ml Balance 1100 ml Intake Oral 1100 ml # Voids 3 Medications Current Medications Medications Dose Ordered Sig/Kelsi Route Start Time Stop Time Status Last Admin Dose Admin Aspirin 81 mg DAILY PO 07/09/25 10:00 07/18/25 09:47 81 MG Levothyroxine Sodium 75 mcg QAM@0600 PO 07/09/25 06:00 07/18/25 05:48 75 MCG Ondansetron HCl 4 mg Q4HP PRN IV 07/08/25 21:30 Acetaminophen 650 mg Q6HP PRN PO 07/08/25 21:30 Enoxaparin Sodium 40 mg DAILY SC 07/08/25 21:30 07/18/25 09:47 40 MG Hydralazine HCl 10 mg Q6HP PRN IV 07/09/25 18:00 07/10/25 06:27 10 MG Patient Own Medication 12 mg BID PO 07/10/25 22:00 Cancel Donepezil HCl 10 mg HS PO 07/10/25 22:00 07/17/25 20:50 10 MG Patient Own Medication 1 BID PO 07/10/25 22:00 07/18/25 09:48 1 Primidone 25 mg HS PO 07/12/25 22:00 Amlodipine Besylate 10 mg DAILY PO 07/16/25 10:00 07/18/25 09:48 10 MG Laboratory Results Laboratory Tests 07/18/25 05:25 Chemistry Test 07/18/25 05:25 Albumin 3.7 g/dL (3.2-4.8) Calcium Level 8.9 mg/dL (8.7-10.4) Magnesium Level 2.5 mg/dL (1.6-2.6) Total Protein 6.5 g/dL (5.7-8.2) LFT Test 07/18/25 05:25 Alanine Aminotransferase (ALT) 18 U/L (7-40) Alkaline Phosphatase 82 U/L (46-116) Aspartate Amino Transferase (AST) 26 U/L (13-40) Total Bilirubin 0.3 mg/dL (0.2-1.0) Urinalysis Test 07/08/25 14:10 Urine Color Yellow (Yellow) Urine Clarity Clear (Clear) Urine pH 5.0 (5.0-9.0) Urine Specific [place] 1.021 (1.001-1.035) Urine Protein 1+ (Negative) H Urine Ketones Negative (Negative) Urine Blood Negative /uL (Negative) Urine Nitrite Negative (Negative) Urine Bilirubin Negative (Negative) Urine Urobilinogen Normal mg/dL (Negative) Urine Leukocyte Esterase Negative /uL (Negative) Urine RBC 1 /hpf (0 - 4) Urine Microscopic WBC < 1 /HPF (0-5) Urine Squamous Epithelial Cells None seen /hpf (<5) Urine Bacteria None seen /hpf (None Seen) Urine Glucose Normal mg/dL (Normal) Microbiology Microbiology Date/Time Source Procedure Growth Status 07/08/25 22:45 Blood Blood Culture - Final NO GROWTH AFTER 5 DAYS OF INCUBATION. Complete Labs and/or images reviewed: Labs reviewed by me, Image(s) reviewed by me Assessment/Plan Assessment/Plan Syncope secondary to symptomatic bradycardia Status post successful implantation of [employer] Micra leadless permanent pacemaker by Dr Peters on 07-15-25, echocardiogram 55 % ejection fraction Acute metabolic encephalopathy Cognitive dysfunction possibly medication induced Polypharmacy BAKARI versus [facility]: Consult for Nephrology Dr. Roy appreciated, stopped hydrochlorothiazide, to continue valsartan added amlodipine 5 mg p.o. daily Elevated troponin 72, Non STEMI type 2 , consult for Cardiology Dr. Peters appreciated Hypertension Parkinson's disease ; neurology consult by Dr. Gomez appreciated recommended to continue [place] 12 mg p.o. b.i.d. reduce primidone to 50 mg p.o. HS Dementia:continue Aricept 10 mg p.o.daily Hypothyroidism: Continue Synthroid 75 mcg a day Bowel incontinence: MRI LS spine Multilevel disc degeneration. Multilevel spinal canal stenosis, most pronounced and moderate at L4-L5. Multilevel subarticular zone stenosis, most pronounced and severe at L4-L5 with bilateral descending L5 nerve root compression. Multilevel foraminal stenosis, most pronounced and mild at L4-L5. Consult by spine surgeon Dr. Steele appreciated Hypertension continue valsartan 80 mg p.o. daily Patient was on trazodone for depression recently discontinued Patient is DNR per patient's son José Luis who is at the bedside General Condition stable Rosa test negative Rapid flu test negative Blood cultures neg Physical Therapy ordered Time taken 55 minutes Discussed diagnosis management and plan of care with the patient's son at bedside Plan discussed with: Patient My Orders Orders - AMITA HARMON MD Procedure Category Date Status Time ConsultdrPauline Sinclair CONS 07/18/25 Transmitted Inés(Spine) 03:28 Date of Service: Jul 18, 2025 Billing Provider: AMITA HARMON MD Common Visit Codes: [id number] INP/OBS CARE(HIGH) AMITA HARMON MD Jul 18, 2025 10:36
--- NOTE | 2025-07-18 10:45 | DVHDS2 ---
Discharge Summary Date of Admission Jul 08, 2025 at 21:28 Date of Discharge: Jul 18, 2025 Admitting Diagnosis Altered mental status and confusion syncope Wounds: Leadless pacemaker implantation Labs/Diagnostic Data: Laboratory Results Test 07/18/25 05:25 07/15/25 15:47 07/14/25 04:30 07/12/25 04:28 White Blood Count 5.1 10^3/uL (4.4-10.8) Red Blood Count 3.74 10^6/uL (4.0-5.20) Hemoglobin 11.0 g/dL (12.2-16.2) Hematocrit 32.8 % (36.0-46.0) Mean Corpuscular Volume 87.9 fL (80.0-100.0) Mean Corpuscular Hemoglobin 29.3 pg (28.0-32.0) Mean Corpuscular Hemoglobin Concent 33.4 g/dL (32.0-36.0) Red Cell Distribution Width 13.6 % (11.8-14.3) Platelet Count 187 10^3/uL (140-450) Mean Platelet Volume 10.7 fL (6.9-10.8) Neutrophils (%) (Auto) 52.9 % (37.0-80.0) Lymphocytes (%) (Auto) 36.5 % (10.0-50.0) Monocytes (%) (Auto) 6.4 % (0.0-12.0) Eosinophils (%) (Auto) 3.8 % (0.0-7.0) Basophils (%) (Auto) 0.4 % (0.0-2.0) Neutrophils # (Auto) 2.7 10 ^3/uL (1.6-8.6) Lymphocytes # (Auto) 1.9 10 ^3/uL (0.4-5.4) Monocytes # (Auto) 0.3 10 ^3/uL (0-1.3) Eosinophils # (Auto) 0.2 10 ^3/uL (0-0.8) Basophils # (Auto) 0 10 ^3/uL (0-0.2) Nucleated Red Blood Cells 0.1 % Sodium Level 142 mmol/L (136-145) Potassium Level 4.6 mmol/L (3.5-5.1) Chloride Level 106 mmol/L (98-107) Carbon Dioxide Level 25 mmol/L (20-31) Anion Gap 11 (5-15) Blood Urea Nitrogen 33 mg/dL (9-23) Creatinine 1.19 mg/dL (0.550-1.02) Glomerular Filtration Rate Calc 46 mL/min (>90) BUN/Creatinine Ratio 27.7 (10.0-20.0) Serum Glucose 96 mg/dL (74-106) Calcium Level 8.9 mg/dL (8.7-10.4) Magnesium Level 2.5 mg/dL (1.6-2.6) Total Bilirubin 0.3 mg/dL (0.2-1.0) Aspartate Amino Transferase (AST) 26 U/L (13-40) Alanine Aminotransferase (ALT) 18 U/L (7-40) Alkaline Phosphatase 82 U/L (46-116) Total Protein 6.5 g/dL (5.7-8.2) Albumin 3.7 g/dL (3.2-4.8) Phosphorus Level 4.7 mg/dL (2.4-5.1) Prothrombin Time 10.5 sec (9.3-11.8) Prothrombin Time INR 0.99 (0.9-1.15) Vitamin D 25-Hydroxy 79.4 ng/mL (30.0-100) Parathyroid Hormone (Intact) 63.0 pg/mL (18.4-80.1) Test 07/10/25 13:03 07/09/25 09:15 07/08/25 22:35 07/08/25 16:08 B-Type Natriuretic Peptide 43.60 pg/mL (0-100) Triglycerides Level 127 mg/dL (< 150) Cholesterol Level 227 mg/dL (< 200) LDL Cholesterol 154 mg/dL (< 100) HDL Cholesterol 47 mg/dL (40-59) Vitamin B12 Level 285 pg/mL (211-911) Folic Acid 5.09 ng/mL (>5.38) Thyroid Stimulating Hormone (TSH) 3.09 uIU/mL (0.55-4.78) Free Thyroxine (T4) Calculated 1.39 ng/dL (0.89-1.76) Influenza Type A Antigen Negative (Negative) Influenza Type B Antigen Negative (Negative) SARS-CoV-2 Antigen (Rapid) Negative (NEGATIVE) Lactic Acid Level 0.7 mmol/L (0.4-2.0) Direct Bilirubin < 0.1 mg/dL (<0.3) Ammonia < 10 umol/L (11-32) Troponin I High Sensitivity 72 ng/L (</=34) Test 07/08/25 14:10 Urine Color Yellow (Yellow) Urine Clarity Clear (Clear) Urine pH 5.0 (5.0-9.0) Urine Specific [place] 1.021 (1.001-1.035) Urine Protein 1+ (Negative) Urine Ketones Negative (Negative) Urine Blood Negative /uL (Negative) Urine Nitrite Negative (Negative) Urine Bilirubin Negative (Negative) Urine Urobilinogen Normal mg/dL (Negative) Urine Leukocyte Esterase Negative /uL (Negative) Urine RBC 1 /hpf (0 - 4) Urine Microscopic WBC < 1 /HPF (0-5) Urine Squamous Epithelial Cells None seen /hpf (<5) Urine Bacteria None seen /hpf (None Seen) Urine Glucose Normal mg/dL (Normal) Other Laboratory Tests 07/18/25 05:25 Brief Hx & Hospital Course: 80-year-old female with a history of hypertension Parkinson's dementia hypothyroidism burden by family for altered mental status confusion and syncopal episodes found to have symptomatic bradycardia underwent leadless pacemaker implantation by on 07/15/2025. Seen by Neurology Dr. Gomez for dementia and Parkinson's disease and made some adjustments to the medications patient has a non STEMI type 2 MN conservative management seen by Nephrology for acute kidney injury which has been resolving also seen by Cardiology. Being discharged to half-way facility for rehab. Discussed with the plan with the patient's son José Luis and he is agreeable. Consults/Reason for consult Cardiology Dr. Peters Neurology Dr. Gomez Nephrology Operations or Procedures Leadless pacemaker implantation Condition at Discharge: Fair Final Diagnosis/Problems List Syncope Symptomatic bradycardia status post micra leadless permanent pacemaker implantation by Dr. Peters on 07-15-25 Acute metabolic encephalopathy Cognitive dysfunction [facility] [place] Non STEMI type 2 Hypertension Parkinson's disease Dementia Hypothyroidism Bowel and bladder incontinence Spinal canal stenosis L4-5 conservative management Hypertension Discharge Disposition: Detention Facility Discharge Instruct/Medications Diet: Cardiac 2g Na,low cholest Activity: Light activity Follow Up/Referral: Follow up with the residential Medications: see list Scheduled Aspirin (Aspir-81), 1 TAB PO DAILY, (Reported) Deutetrabenazine (Austedo), 12 MG PO DAILY, (Reported) Donepezil Hydrochloride (Donepezil Hcl), 1 TAB PO DAILY, (Reported) Levothyroxine Sodium (Synthroid Tablet), 75 TAB PO DAILY, (Reported) Primidone (Primidone), 100 MG PO DAILY, (Reported) Valsartan-Hydrochlorothiazide (Diovan Hct), 1 TAB PO DAILY, (Reported) 35 (Time taken for discharge summary 35 minutes) Discharge Statement: "Patient was advised to return to the ER or call 911 if any headaches, dizziness, shortness of breath, chest pain, abdominal pain, bleeding, fevers, or worsening of medical condition. Patient was counseled about treatment plan, medications, possible side effects, patientverbalized understanding. All questions were answered to the best of my ability. This discharge took greater then 30 minutes in planning, reviewing documentation, counseling the patient, and discussing with other team members." ASSESSMENT ASSESSMENT Hospital Course Marginally improved. Assessment Syncope Symptomatic bradycardia status post micra leadless permanent pacemaker implantation by Dr. Peters on 07-15-25 Acute metabolic encephalopathy Cognitive dysfunction [facility] [place] [facility] Non STEMI type 2 Hypertension Parkinson's disease Dementia Hypothyroidism Bowel and bladder incontinence Spinal canal stenosis L4-5 conservative management Hypertension Date of Service: Jul 18, 2025 Billing Provider: AMITA HARMON MD Common Visit Codes: [id number] DISCH DAY >30min AMITA HARMON MD Jul 18, 2025 10:45
--- NOTE | 2025-07-18 12:12 | DVHPN2 ---
Progress Note Date Seen: Jul 18, 2025 Medical Necessity Reason Pt with a Central, PICC or Fol: No Subjective Patient reports: Feels better Objective vital signs Vital Sign Date Time Temp Pulse Resp B/P (MAP) Pulse Ox O2 Delivery O2 Flow Rate FiO2 07/18/25 11:44 64 16 96 07/18/25 09:48 157/70 07/18/25 08:30 98.1 98.1 07/18/25 07:30 Room Air* 0 21 Total Intake and Output 07/17/25 07/17/25 07/18/25 15:00 23:00 07:00 Intake Total 800 ml 300 ml Balance 800 ml 300 ml medications Current Medications Medications Dose Ordered Sig/Kelsi Route Start Time Stop Time Status Last Admin Dose Admin Aspirin 81 mg DAILY PO 07/09/25 10:00 07/18/25 09:47 81 MG Levothyroxine Sodium 75 mcg QAM@0600 PO 07/09/25 06:00 07/18/25 05:48 75 MCG Ondansetron HCl 4 mg Q4HP PRN IV 07/08/25 21:30 Acetaminophen 650 mg Q6HP PRN PO 07/08/25 21:30 Enoxaparin Sodium 40 mg DAILY SC 07/08/25 21:30 07/18/25 09:47 40 MG Hydralazine HCl 10 mg Q6HP PRN IV 07/09/25 18:00 07/10/25 06:27 10 MG Patient Own Medication 12 mg BID PO 07/10/25 22:00 Cancel Donepezil HCl 10 mg HS PO 07/10/25 22:00 07/17/25 20:50 10 MG Patient Own Medication 1 BID PO 07/10/25 22:00 07/18/25 09:48 1 Primidone 25 mg HS PO 07/12/25 22:00 Amlodipine Besylate 10 mg DAILY PO 07/16/25 10:00 07/18/25 09:48 10 MG Examination: GENERAL:Normal, CVS:Normal laboratory and microbiology Laboratory Tests 07/18/25 05:25 Test 07/18/25 05:25 Range/Units Serum Glucose 96 74-106 mg/dL Microbiology Date/Time Source Procedure Growth Status 07/08/25 22:45 Blood Blood Culture - Final NO GROWTH AFTER 5 DAYS OF INCUBATION. Complete Problem List/Assessment/Plan Problem List/Assessment/Plan This is an 80-year-old lady with past medical history of dementia, Parkinson disease, hypertension, hypothyroidism, CKD (3 B), brought in to the hospital due to generalized weakness and decreased oral intake. BAKARI on CKD (possibly 3B, per family report, baseline record not available), hemodynamic mediated etiology Hypovolemia Mild anemia Dementia and Parkinson disease Hyperphosphatemia Hypertension Hypothyroidism Non ST-elevation RI Degenerative spine disease Plan/recommendation: BAKARI resolving GFR closer to admission value CKD 3 amlodipine valsartan start low dose Plan discussed with: Patient My Orders My Orders Orders - FAINA JEAN MD Procedure Category Date Status Time Valsartan (Diovan) PHA 07/18/25 Verified 12:15 Dietary Evaluation Review Comments: Cardiac diet with Ensure High Protein 240ml PO BID Monitor PO intake to meet 75% of her needs Expected Outcomes/Goals: Improved nutrition related lab values FAINA JEAN MD Jul 18, 2025 12:12
[2025-07-18] MEDS: VALSARTAN 80 MG TAB PO SCH (12:15)
--- NOTE | 2025-07-18 13:38 | DVHPN2 ---
Progress Note - Dictate Date Seen: Jul 16, 2025 Medical Necessity Reason Pt with a Central, PICC or Fol: No Subjective PT WITH ORG HEART DISEASE LABILE BP NOW WITH TACHYBRADY EPISODES HX OF HTN PARKINSON /DEMENTIA CKD / SINGLE KIDNEY MULTIPLE ORTHO PROCEDURES HYPOTHYROIDISM vital signs Vital Sign Date Time Temp Pulse Resp B/P (MAP) Pulse Ox O2 Delivery O2 Flow Rate FiO2 07/18/25 13:28 97.6 64 16 123/58 (79) 95 97.6 07/18/25 07:30 Room Air* 0 21 Total Intake and Output 07/17/25 07/17/25 07/18/25 15:00 23:00 07:00 Intake Total 800 ml 300 ml Balance 800 ml 300 ml medications Current Medications Medications Dose Ordered Sig/Kelsi Route Start Time Stop Time Status Last Admin Dose Admin Aspirin 81 mg DAILY PO 07/09/25 10:00 07/18/25 09:47 81 MG Levothyroxine Sodium 75 mcg QAM@0600 PO 07/09/25 06:00 07/18/25 05:48 75 MCG Ondansetron HCl 4 mg Q4HP PRN IV 07/08/25 21:30 Acetaminophen 650 mg Q6HP PRN PO 07/08/25 21:30 Enoxaparin Sodium 40 mg DAILY SC 07/08/25 21:30 07/18/25 09:47 40 MG Hydralazine HCl 10 mg Q6HP PRN IV 07/09/25 18:00 07/10/25 06:27 10 MG Patient Own Medication 12 mg BID PO 07/10/25 22:00 Cancel Donepezil HCl 10 mg HS PO 07/10/25 22:00 07/17/25 20:50 10 MG Patient Own Medication 1 BID PO 07/10/25 22:00 07/18/25 09:48 1 Primidone 25 mg HS PO 07/12/25 22:00 Amlodipine Besylate 10 mg DAILY PO 07/16/25 10:00 07/18/25 09:48 10 MG Valsartan 80 mg DAILY PO 07/18/25 12:15 laboratory and microbiology Laboratory Tests 07/18/25 05:25 Test 07/18/25 05:25 Range/Units Serum Glucose 96 74-106 mg/dL Problem List ORG HEART DISEASE LABILE BP NOW WITH TACHYBRADY EPISODES HX OF HTN PARKINSON /DEMENTIA CKD / SINGLE KIDNEY MULTIPLE ORTHO PROCEDURES HYPOTHYROIDISM ANEMIA Assessment/Plan CONSIDER PPI IF FAMILY AND PT ARE AGREEABLE FAMILY DEFERRING PPI NOW FAMILY AGREEABLE TO PPI BECAUSE OF EPISODE OF BRADYCARDIA AGAIN PT'S FAMILY STILL INDECISIVE ABOUT PPI RECOMMEND 2nd OPINION/ EF WILL SIGN OFF NOW FAMILY HAVE CHANGED THEIR MIND WILL PROCEED WITH PPI LEAD LESS S/P PPI LEADLESS FUNCTION WNL MAY DC HOME Dietary Evaluation Review Comments: Cardiac diet with Ensure High Protein 240ml PO BID Monitor PO intake to meet 75% of her needs Expected Outcomes/Goals: Improved nutrition related lab values Plan discussed with: Patient JACQUE MARLOW MD Jul 18, 2025 13:38
== END 2025-07-18 17:35 | DRG 228 ==
LOC: ER 11:41 → OVERFLOW 21:28 → TELE-EAST 23:56
PROVIDERS: ADMIT Family Medicine; ATTEND Family Medicine
PROC: 02HK3NZ Insertion of Intracardiac Pacemaker into Right Ventricle, Percutaneous Approach (ICD-10-PCS; principal; 2025-07-15)
DX: I49.5 Sick sinus syndrome (principal); G93.41 Metabolic encephalopathy; I21.A1 Myocardial infarction type 2; N17.0 Acute kidney failure with tubular necrosis; N17.9 Acute kidney failure, unspecified; F02.818 Dementia in other diseases classified elsewhere, unspecified severity, with other behavioral disturbance; G20.A1 Parkinson's disease without dyskinesia, without mention of fluctuations; N18.9 Chronic kidney disease, unspecified; E89.0 Postprocedural hypothyroidism; I12.9 Hypertensive chronic kidney disease with stage 1 through stage 4 chronic kidney disease, or unspecified chronic kidney disease; F32.A Depression, unspecified; D64.9 Anemia, unspecified; I16.9 Hypertensive crisis, unspecified; F02.83 Dementia in other diseases classified elsewhere, unspecified severity, with mood disturbance; Z66 Do not resuscitate; G25.5 Other chorea; G25.0 Essential tremor; E83.39 Other disorders of phosphorus metabolism; G47.00 Insomnia, unspecified; M48.061 Spinal stenosis, lumbar region without neurogenic claudication; R32 Unspecified urinary incontinence; Z96.651 Presence of right artificial knee joint; R74.01 Elevation of levels of liver transaminase levels; E86.1 Hypovolemia; Z20.822 Contact with and (suspected) exposure to COVID-19; Z90.710 Acquired absence of both cervix and uterus; Z83.3 Family history of diabetes mellitus; Z80.9 Family history of malignant neoplasm, unspecified; Z79.899 Other long term (current) drug therapy
CPT/HCPCS: 33274; 36415; 70450; 70551; 71045; 72131; 72148; 74176; 76705; 76775; 80048; 80053; 80061; 80076; 81001; 82140; 82306; 82607; 82746; 83605; 83735; 83880; 83970; 84100; 84439; 84443; 84484; 85025; 85610; 86850; 86900; 86901; 87040; 87426; 87804; 93005; 93306; 96361; 96374; 97110; 97116; 97163; 97530; 99152; G0378; J2250; Q9967